=== PATIENT | male | born 1945 | race Caucasian/White ===

== ENCOUNTER 2018-12-18 14:00 | Outpatient (RCR) | payer MEDICARE, OTHER ==
--- NOTE | 2018-11-03 11:26 | Pulmonary Rehab Eval/Txmt Plan ---
Pulmonary Rehab Initial Eval Information Paper Evaluation Completed: Yes Date: Nov 03, 2018 Pulmonary Rehab Treatment Plan Treatment P Treatment Periord: Initial Diagnosis Diagnosis: J44.9 COPD Date: Nov 03, 2018 Barriers to Learning Barriers: None Assessment/Problems Exercise: Deconditioning, Decreased Exer Tolerance, No Regular Exercise, Sedentary Type: AEROBIC Frequency: 2 X WEEK Duration: 1 HR CLASS; EXERCISE PER PT'S TOLERANCE Initial MET Level: 2 Aerobic Exercise/Goals Freq: time per week minus CA: 2 MET Level=: 2 Type: Arm Ergometry, Bike, Scifi/Nustep, Treadmill CABRERA CONROY DO Nov 03, 2018 11:26
[2018-12-02 14:00] VITALS: BP 158/63
[2018-12-02 15:00] VITALS: BP 148/50
[2018-12-09 14:00] VITALS: BP 140/58
[2018-12-09 14:58] VITALS: BP 130/80
[2018-12-11 14:00] VITALS: BP 140/60
[2018-12-11 15:00] VITALS: BP 142/80
[2018-12-16 14:40] VITALS: BP 140/60
[2018-12-18 13:40] VITALS: BP 140/80
[~2018-12-18 14:00] MED LIST: ALBU2.5V4 INH; ALPR0.5T7 PO; AMLO5TAB4 PO; AVOD0.5CAP PO; AZIT250T12 PO; CITA20TA9 PO; CITA40TA19 PO; CLOP75TA69 PO; FINA5TAB6 PO; FLAX100031 PO; FLUT12AE4 IH; FLUT1AER INH; FLUT1DIS26 INH; GUAI600T43 PO; IPRA3AMP31 IH; LSNP10T PO; MONT10TA24 PO; PRD10T PO; PRED10TA22 PO; ROFL500T PO; ROSU5TAB PO; RT-ALBUINH IH; TELM40T PO; TELM40TA3 PO; TIOT18CA INH; TRIA80OI TOP; WARF-48 PO; WARF1TAB82 PO; WARF6TAB49 PO
[2018-12-18 14:57] VITALS: BP 178/60
[2018-12-23 13:52] VITALS: BP 150/60
[2018-12-23 14:55] VITALS: BP 140/80
[2018-12-25 14:10] VITALS: BP 140/50
[2018-12-25 15:00] VITALS: BP 122/64
[2018-12-30 14:00] VITALS: BP 180/40
[2018-12-30 16:00] VITALS: BP 140/80
[2019-01-01 14:00] VITALS: BP 190/60
[2019-01-01 15:00] VITALS: BP 140/70
[2019-01-06 14:00] VITALS: BP 230/50
[2019-01-06 15:00] VITALS: BP 138/40
[2019-01-08 13:50] VITALS: BP 160/76
[2019-01-08 14:40] VITALS: BP 121/60
[2019-01-13 13:40] VITALS: BP 163/60
[2019-01-13 14:04] VITALS: BP 150/50
[2019-01-15 13:58] VITALS: BP 122/81
[2019-01-15 15:00] VITALS: BP 150/60
[2019-01-20 14:00] VITALS: BP 160/50
[2019-01-20 14:35] VITALS: BP 130/50
[2019-01-27 14:00] VITALS: BP 130/60
[2019-01-27 15:00] VITALS: BP 140/68
[2019-01-29 14:00] VITALS: BP 140/60
[2019-02-03 14:00] VITALS: BP 160/60
[2019-02-03 14:45] VITALS: BP 115/40
== END 2019-02-01 | disposition home or self-care (01) ==
LOC: PULM 14:00
PROVIDERS: ATTEND Pediatrics
DX: J44.9 Chronic obstructive pulmonary disease, unspecified (principal)
CPT/HCPCS: 99211

== ENCOUNTER 2019-02-05 08:00 | Outpatient (RCR) | payer MEDICARE, OTHER ==
[2019-02-05 14:00] VITALS: BP 170/60
[2019-02-05 15:00] VITALS: BP 143/60
[2019-02-10 14:00] VITALS: BP 150/60
[2019-02-10 15:00] VITALS: BP 127/50
== END 2019-05-06 | disposition home or self-care (01) ==
LOC: PULM 08:00
PROVIDERS: ATTEND Pediatrics
DX: J44.9 Chronic obstructive pulmonary disease, unspecified (principal)

== ENCOUNTER → 2019-03-17 | Outpatient (CLI) | payer MEDICARE, OTHER ==
--- NOTE | 2019-03-17 16:32 | Diagnostic Imaging Report ---
PROCEDURE: US carotid duplex, bilateral. TECHNIQUE: Multiple real-time grayscale images were obtained over the carotid arteries in various projections, bilaterally. Additional spectral analysis and color Doppler duplex images were also obtained. INDICATION: Left carotid stenosis. FINDINGS: Moderate plaque is present bilaterally. No identifiable flow in the right internal carotid artery is noted. Velocities in the left internal carotid artery are mildly elevated distally at 152 cm/s. Common carotid artery velocities are unremarkable. Both vertebral arteries demonstrate antegrade flow. Parameters based on the consensus panel Lang-Scale and Doppler ultrasound criteria published August 2003, Radiology, Volume 229. DOPPLER (peak systolic velocity M/S Right Left CCA .58 .92 ICA Proximal 0 .98 ICA Mid 0 1.0 ICA Distal 0 1.52 RATIO 0 1.7 ECA 1.2 1.8 VERT .39 .40 IMPRESSION: 1. Findings consistent with right internal carotid artery occlusion. 2. Mild velocity elevation of left internal carotid artery distally consistent with approximately 60-79% diameter stenosis. No other significant abnormality is detected. Dictated by: Dictated on workstation # [id number]
== END ==
LOC: RAD 14:30
PROVIDERS: ATTEND Pediatrics
DX: I65.22 Occlusion and stenosis of left carotid artery (principal)
CPT/HCPCS: 93880

== ENCOUNTER → 2019-07-27 | Outpatient (CLI) | payer MEDICARE, OTHER ==
--- NOTE | 2019-07-27 15:00 | Diagnostic Imaging Report ---
PROCEDURE: US Venous Lower Ext Ciro. TECHNIQUE: Multiple real-time grayscale images were obtained over the lower extremities in various projections, bilaterally. Additional duplex Doppler and color Doppler images were also obtained. INDICATION: Leg pain and swelling. FINDINGS: There are no prior studies available for comparison. There is generally good blood flow and compressibility at all levels. There is no sign of deep venous thrombosis. During the course of the exam, however, an enlarged 3.8 x 3.2 x 1.9 cm lymph node was seen in the left inguinal region. This finding is of uncertain etiology. Clinical follow-up is recommended. IMPRESSION: 1. There is no evidence for deep venous thrombosis in either lower extremity. 2. There is an enlarged lymph node in the left inguinal region. Dictated by: Dictated on workstation # [id number]
== END ==
LOC: RAD 13:21
PROVIDERS: ATTEND Pediatrics
DX: M79.89 Other specified soft tissue disorders (principal); R59.0 Localized enlarged lymph nodes
CPT/HCPCS: 93970

== ENCOUNTER 2022-04-08 05:19 | Inpatient (IN) | payer MEDICARE, OTHER ==
[~2022-04-08] VITALS: Ht 185 cm; Wt 113.6 kg
[~2022-04-08 05:19] MED LIST changes: +MONT-40 PO; -MONT10TA24 PO; -TELM40TA3 PO; +TELM40TA6 PO; -WARF1TAB82 PO; +WRF1T PO
[2022-04-08] MEDS ORDERED: ONDANSETRON 4 MG/2 ML (SDV) Z0FRAN IVP ONE ×2 (05:30→06:15)
--- NOTE | 2022-04-08 05:31 | ED General ---
General Chief Complaint: Abdominal/GI Problems Stated Complaint: ABD PAIN Nursing Triage Note: patient states since midnight he has had abdominal pain with nausea/vomitting/diarrhea. patient states was on the toilet patient states he was leaning over trash can vomitting, states woke up on floor with head in shower. Source of Information: Patient Exam Limitations: No Limitations (RONI BATRES MD) History of Present Illness Date Seen by Provider: Apr 08, 2022 Time Seen by Provider: 05:24 Initial Comments This 76-year-old gentleman presents to the emergency room via EMS after having a syncopal episode at his home. He began experiencing nausea and vomiting around midnight as well as left lower quadrant pain. He was sitting on the stool when he had a syncopal episode and tipped over off of the stool without injury. His activated EMS. He was still on the floor by the stool when EMS arrived but was alert and conversational. He was not able to get up on his own. Patient denies nausea at this time but reports persistent left lower quadrant pain. He notes his urine has appeared concentrated recently but denies any other urinary problems. He denies diarrhea but states he has felt constipated recently. He has no history of abdominal surgeries per his report. He is on warfarin due to stroke and carotid stenosis. He has COPD and uses maintenance oxygen at 4 L/min. He was wearing his oxygen at the time of syncope. Patient reportedly is prone to syncope with prior episodes. He has had multiple prior admissions here for COPD and TIA. Dr. Priti Martínez is his primary care provider. (RONI BATRES MD) Allergies and Home Medications Allergies Coded Allergies: No Known Drug Allergies (Unverified , 02/06/16) Patient Home Medication List Home Medication List Reviewed: Yes (RONI BATRES MD) Alprazolam (Alprazolam) 0.5 Mg Tablet, 0.25-0.5 MG PO DAILY PRN for ANXIETY Prescribed by: MARYJO TINSLEY on 02/13/16 0945 Cephalexin (Cephalexin) 500 Mg Tablet, 500 MG PO BID Prescribed by: RAMY CALABRESE on 04/08/22 0717 Citalopram Hydrobromide (Citalopram HBr) 20 Mg Tablet, 20 MG PO HS, (Reported) Entered as Reported by: ELISABET VELAZQUEZ on 06/07/15 0959 Finasteride (Finasteride) 5 Mg Tablet, 5 MG PO HS, (Reported) Entered as Reported by: PAMELA VIRK on 06/03/152138 Fluticasone/Vilanterol (Breo Ellipta 100-25 Mcg INH) 1 Each Blst.w.dev, 1 PUFF INH HS, (Reported) Entered as Reported by: LUBA JOHNSON on 11/28/15 1014 Guaifenesin (Mucinex) 600 Mg Tab.er.12h, 600 MG PO DAILY PRN for CONGESTION, (Reported) Entered as Reported by: CARRIE SLADE on 02/06/16 1223 Hydrocodone/Acetaminophen (Hydrocodone-Acetamin 7.5-325) 7.5 Mg-325 Mg Tablet, 1-2 EACH PO Q6H PRN for pain Prescribed by: RAMY CALABRESE on 04/08/22 0718 Ipratropium/Albuterol Sulfate (Iprat-Albut 0.5-3(2.5) mg/3 ml) 3 Ml Ampul.neb, 3 ML IH Q6H PRN for SHORTNESS OF BREATH, (Reported) Entered as Reported by: LUBA JOHNSON on 11/28/15 1019 Montelukast Sodium (Montelukast Sodium) 10 Mg Tablet, 10 MG PO HS, (Reported) Entered as Reported by: CARRIE SLADE on 02/06/16 1223 Ondansetron (Ondansetron Odt) 4 Mg Tab.rapdis, 4-8 MG PO Q6H PRN for NAUSEA/VOMITING Prescribed by: RAMY CALABRESE on 04/08/22 0717 Prednisone (Prednisone) 10 Mg Tab, 10 MG PO DAILY Prescribed by: MARYJO TINSLEY on 02/13/16 0946 Roflumilast (Daliresp) 500 Mcg Tablet, 500 MCG PO DAILY Prescribed by: MARYJO TINSLEY on 02/13/16 0945 Rosuvastatin Calcium (Crestor) 5 Mg Tablet, 5 MG PO HS, (Reported) Entered as Reported by: PAMELA VIRK on 06/03/152138 Tamsulosin HCl (Flomax) 0.4 Mg Cap, 0.4 MG PO DAILY Prescribed by: RAMY CALABRESE on 04/08/22 0717 Telmisartan (Telmisartan) 40 Mg Tablet, 40 MG PO HS, (Reported) Entered as Reported by: LUBA JOHNSON on 11/28/15 1014 Warfarin Sodium (Warfarin Sodium) 5 Mg Tablet, 5 MG PO EVERY EVENING, (Reported) Entered as Reported by: LUBA JOHNSON on 11/28/15 1014 Review of Systems Review of Systems Constitutional: No fever; weakness EENTM: no symptoms reported Respiratory: no symptoms reported Cardiovascular: no symptoms reported Gastrointestinal: see HPI Genitourinary: see HPI Musculoskeletal: no symptoms reported Skin: no symptoms reported Psychiatric/Neurological: No Symptoms Reported Hematologic/Lymphatic: No Symptoms Reported Immunological/Allergic: no symptoms reported (RONI BATRES MD) Past Bdcelas-Rgdayb-Rqqviu Hx Patient Social History Tobacco Use?: No Tobacco type used: Cigarettes Smoking Status: Former Smoker Use of E-Cig and/or Vaping dev: No Substance use?: No Alcohol Use?: No (RONI BATRES MD) Past Medical History Surgeries: Yes Eye Surgery, Vascular Surgery (Right carotid endarterectomy) Respiratory: Yes Sleep Apnea, COPD (Uses maintenance oxygen at 4 L/min), Emphysema Currently Using CPAP: Yes Currently Using BIPAP: No Cardiac: Yes High Cholesterol, Hypertension, Peripheral Vascular, Syncope Neurological: No Stroke Reproductive Disorders: No Sexually Transmitted Disease: No HIV/AIDS: No Genitourinary: Yes Benign Prostatic Hyperpl Gastrointestinal: No Musculoskeletal: Yes Arthritis Endocrine: No HEENT: Yes Cataract Loss of Vision: Denies Hearing Impairment: Denies Psychosocial: Yes Anxiety Adverse Reaction/Blood Tranf: No (RONI BATRES MD) Family Medical History Reviewed Nursing Family Hx (RONI BATRES MD) FHx: hip fracture 19 MOTHER MS (multiple sclerosis) G8 BROTHER Paternal family history of congestive heart failure 19 FATHER No Pertinent Family Hx (RONI BATRES MD) Physical Exam Vital Signs Vital Signs - First Documented 04/08/22 04/08/22 05:23 05:31 Temp 36.5 Pulse 97 Resp 20 B/P (MAP) 197/90 (125) Pulse Ox 98 O2 Delivery Room Air O2 Flow Rate 2.00 (RAMY CALABRESE) Vital Signs Capillary Refill : Less Than 3 Seconds (RONI BATRES MD) Height, Weight, BMI Height: 6'1.00" Weight: 235lbs. 0.4oz. [id number]; 31.00 BMI Method:Stated General Appearance: No Apparent Distress, WD/WN HEENT: PERRL/EOMI, Normal ENT Inspection Neck: Normal Inspection Respiratory: Lungs Clear, Normal Breath Sounds, No Accessory Muscle Use Cardiovascular: Regular Rate, Rhythm, No Edema, No Murmur Gastrointestinal: Soft, Abnormal Bowel Sounds (No bowel sounds observed), Distended (Mildly), Tenderness (Mild in the far left lower quadrant) Extremity: Normal Inspection, No Pedal Edema Neurologic/Psychiatric: Alert, Oriented x3, No Motor/Sensory Deficits, Normal Mood/Affect, air quality engineer II-XII Norm as Tested, Other (Tremor) Skin: Normal Color, Warm/Dry (RONI BATRES MD) Focused Exam Lactate Level 04/08/22 07:35: Lactic Acid Level 2.22*H (RAMY CALABRESE) Lactic Acid Level Laboratory Tests Test 04/08/22 07:35 Lactic Acid Level 2.22 MMOL/L (0.50-2.00) *H (RAMY CALABRESE) Progress/Results/Core Measures Suspected Sepsis SIRS Temperature: Pulse: 97 Respiratory Rate: 20 Laboratory Tests 04/08/22 05:39: White Blood Count 18.7H Blood Pressure 197 /90 Mean: 125 Laboratory Tests 04/08/22 05:39: Creatinine 1.36H, INR Comment 1.7H, Platelet Count 250, Total Bilirubin 0.4 (RONI BATRES MD) Results/Orders Lab Results Laboratory Tests Test 04/08/22 05:39 04/08/22 05:40 04/08/22 07:35 Range/Units White Blood Count 18.7 H 4.3-11.0 10^3/uL Red Blood Count 3.97 L 4.30-5.52 10^6/uL Hemoglobin 12.6 L 13.3-17.7 g/dL Hematocrit 39 L 40-54 % Mean Corpuscular Volume 97 80-99 fL Mean Corpuscular Hemoglobin 32 25-34 pg Mean Corpuscular Hemoglobin Concent 33 32-36 g/dL Red Cell Distribution Width 13.6 10.0-14.5 % Platelet Count 250 130-400 10^3/uL Mean Platelet Volume 10.1 9.0-12.2 fL Immature Granulocyte % (Auto) 1 % Neutrophils (%) (Auto) 83 H 42-75 % Lymphocytes (%) (Auto) 8 L 12-44 % Monocytes (%) (Auto) 7 0-12 % Eosinophils (%) (Auto) 1 0-10 % Basophils (%) (Auto) 0 0-10 % Neutrophils # (Auto) 15.5 H 1.8-7.8 10^3/uL Lymphocytes # (Auto) 1.6 1.0-4.0 10^3/uL Monocytes # (Auto) 1.4 H 0.0-1.0 10^3/uL Eosinophils # (Auto) 0.1 0.0-0.3 10^3/uL Basophils # (Auto) 0.0 0.0-0.1 10^3/uL Immature Granulocyte # (Auto) 0.2 H 0.0-0.1 10^3/uL Neutrophils % (Manual) 78 % Lymphocytes % (Manual) 9 % Monocytes % (Manual) 9 % Eosinophils % (Manual) 3 % Band Neutrophils 1 % Blood Morphology Comment NORMAL Prothrombin Time 20.8 H 12.2-14.7 SEC INR Comment 1.7 H 0.8-1.4 Sodium Level 144 135-145 MMOL/L Potassium Level 4.6 3.6-5.0 MMOL/L Chloride Level 103 98-107 MMOL/L Carbon Dioxide Level 28 21-32 MMOL/L Anion Gap 13 5-14 MMOL/L Blood Urea Nitrogen 17 7-18 MG/DL Creatinine 1.36 H 0.60-1.30 MG/DL Estimat Glomerular Filtration Rate 55 BUN/Creatinine Ratio 13 Glucose Level 133 H 70-105 MG/DL Calcium Level 9.2 8.5-10.1 MG/DL Corrected Calcium 9.2 8.5-10.1 MG/DL Magnesium Level 1.8 1.6-2.4 MG/DL Total Bilirubin 0.4 0.1-1.0 MG/DL Aspartate Amino Transf (AST/SGOT) 20 5-34 U/L Alanine Aminotransferase (ALT/SGPT) 12 0-55 U/L Alkaline Phosphatase 34 L 40-136 U/L C-Reactive Protein High Sensitivity 2.27 H 0.00-0.50 MG/DL Total Protein 7.3 6.4-8.2 GM/DL Albumin 4.0 3.2-4.5 GM/DL Lipase 30 8-78 U/L Urine Color YELLOW Urine Clarity CLEAR Urine pH 5.5 5-9 Urine Specific [place] >=1.030 1.016-1.022 Urine Protein 1+ H NEGATIVE Urine Glucose (UA) NEGATIVE NEGATIVE Urine Ketones NEGATIVE NEGATIVE Urine Nitrite NEGATIVE NEGATIVE Urine Bilirubin NEGATIVE NEGATIVE Urine Urobilinogen 0.2 < = 1.0 MG/DL Urine Leukocyte Esterase NEGATIVE NEGATIVE Urine RBC (Auto) 3+ H NEGATIVE Urine RBC 50-100 H /HPF Urine WBC NONE /HPF Urine Crystals NONE /LPF Urine Bacteria MODERATE H /HPF Urine Casts NONE /LPF Urine Mucus NEGATIVE /LPF Urine Yeast FEW H /HPF Urine Culture Indicated YES Lactic Acid Level 2.22 *H 0.50-2.00 MMOL/L (RAMY CALABRESE) My Orders Orders - RAMY CALABRESE Pantoprazole Injection (Protonix Injecti (04/08/22 06:15) Ondansetron Injection (Zofran Injectio (04/08/22 06:15) Ct Abd/Pelvis Wo(Kidney Stone) (04/08/22 06:08) Ed Iv/Invasive Line Start (04/08/22 06:08) Lactated Ringers (Lr 1000 Ml Iv Solution (04/08/22 06:15) Fentanyl Inj (Sublimaze Injection) (04/08/22 06:15) Promethazine Injection (Phenergan Injec (04/08/22 07:15) Fentanyl Inj (Sublimaze Injection) (04/08/22 07:15) Ceftriaxone 1 Gm Pre-Mix (Rocephin 1 Gm (04/08/22 07:15) Hydrocodone/Apap 5/325 Tablet (Lortab 5 (04/08/22 07:45) Blood Culture (04/08/22 07:34) Partial Thromboplastin Time (04/08/22 07:34) Chest 1 View, Ap/Pa Only (04/08/22 07:34) Ed Iv/Invasive Line Start (04/08/22 07:34) Ed Iv/Invasive Line Start (04/08/22 07:34) Vital Signs Adult Sepsis Patie Q15M (04/08/22 07:34) Remove Rings In Anticipation O (04/08/22 07:34) Lactic Acid Analyzer (04/08/22 07:34) Ns Iv 1000 Ml (Sodium Chloride 0.9%) (04/08/22 07:45) (RAMY CALABRESE) Medications Given in ED Current Medications Medications Dose Ordered Sig/Dary Route Start Time Stop Time Status Last Admin Dose Admin Ceftriaxone Sodium/Dextrose 50 ml @ 100 mls/hr ONCE ONCE IV 04/08/22 07:15 04/08/22 07:44 DC 04/08/22 07:43 100 MLS/HR Fentanyl Citrate 50 mcg ONCE ONCE IVP 04/08/22 06:15 04/08/22 06:16 DC 04/08/22 06:17 50 MCG Lactated Ringer's 1,000 ml @ 0 mls/hr Q0M ONCE IV 04/08/22 06:15 04/08/22 06:16 DC 04/08/22 06:17 0 MLS/HR Ondansetron HCl 4 mg ONCE ONCE IVP 04/08/22 05:30 04/08/22 05:31 DC 04/08/22 05:43 4 MG Ondansetron HCl 4 mg ONCE ONCE IVP 04/08/22 06:15 04/08/22 06:16 DC 04/08/22 06:12 4 MG Pantoprazole 40 mg ONCE ONCE IV 04/08/22 06:15 04/08/22 06:16 DC 04/08/22 06:12 40 MG Promethazine HCl 12.5 mg ONCE ONCE IVP 04/08/22 07:15 04/08/22 07:16 DC 04/08/22 07:41 12.5 MG (RAMY CALABRESE) Vital Signs/I&O 04/08/22 04/08/22 05:23 05:31 Temp 36.5 Pulse 97 Resp 20 B/P (MAP) 197/90 (125) Pulse Ox 98 97 O2 Delivery Room Air Nasal Cannula O2 Flow Rate 2.00 (RAMY CALABRESE) Vital Signs/I&O Capillary Refill : Less Than 3 Seconds (RONI BATRES MD) Blood Pressure Mean: 125 Progress Note : Time: 05:37 Progress Note Patient was seen and examined upon arrival. History received from patient and EMS. Zofran is being administered for prevention of further nausea and vomiting. Further work-up is pending lab results. (RONI BATRES MD) Progress Note #1: Time: 07:11 Progress Note Assumed care of the patient at shift change. He has a left ureteral stone. He does have significant relief of pain with fentanyl but would like little more and is still having some nausea so we will try 12 and half milligrams of Phenergan and another 50 mcg of fentanyl. Gram Rocephin. Encouraged him to follow-up outpatient with his primary care provider to work-up his left thigh mass seen on CT. Progress Note #2: Time: 07:30 Progress Note When the patient returned from CAT scan he had a low blood pressure in the 80s so we reposition the cuff and got a similar blood pressure put it on the other arm and got a similar blood pressure. His IV had infiltrated so he put a compressive bandage over the site and will restart an IV and let him get his fluids. We will put him in some modified Trendelenburg's position. Current blood pressure 95/60. We will obtain blood cultures and lactate. Discussed his spine mass as well as a short stay in the hospital and the patient is okay with this plan. 2 large-bore IVs, and discontinue the fentanyl second dose and ordered Polo instead. Unclear how much the fentanyl contributed to the patien t's drop in blood pressure. (RAMY CALABRESE) ECG Initial ECG Impression Date: Apr 08, 2022 Initial ECG Impression Time: 05:37 Initial ECG Rate: 93 Initial ECG Rhythm: Normal Sinus Comment Sinus rhythm with no ST elevation or depression. No abnormal intervals or axis deviation. (RONI ABTRES MD) Diagnostic Imaging Diagonstic Imaging: CT Plain Films/CT/US/NM/MRI: abdomen, pelvis Comments 2 to 3 mm stone in the mid ureter left side. NAME: LUIS EDUARDO RODRÍGUEZ MED REC#: [id number] PT STATUS: REG ER : 1945 PHYSICIAN: RAMY CALABRESE MD ADMIT DATE: 04/08/22/ER Draft Date of Exam:04/08/22 CT ABD/PELVIS WO(KIDNEY STONE) PROCEDURE: CT abdomen and pelvis without contrast. TECHNIQUE: Multiple contiguous axial images were obtained through the abdomen and pelvis without the use of intravenous contrast. Auto Exposure Controls were utilized during the CT exam to meet ALARA standards for radiation dose reduction. DATE: April 08, 2022. COMPARISON: None. INDICATION: 76-year-old male, abdominal pain. Nausea, vomiting, diarrhea. FINDINGS: There are limitations for evaluation of the abdominal organs, neoplastic processes, abscess, and limited evaluation of the vasculature relating to the lack of intravenous contrast. There are mild predominantly linear opacities in the lung bases most consistent with mild scarring and/or atelectasis. The heart is not enlarged. There is no pericardial effusion. The liver is unremarkable in size and contour. The gallbladder is unremarkable. There is no intrahepatic or extrahepatic bile duct dilation. The main pancreatic duct is not grossly dilated. Limited noncontrast assessment of the pancreatic parenchyma is unremarkable. The spleen is normal in size. The adrenal glands are unremarkable. There is an exophytic left renal lesion on axial image 78 which measures 2.5 cm in size. Internal attenuation is measured at 10 Hounsfield units. This is compatible with a benign cyst. There is left perinephric stranding. There is a nonobstructing 1 to 2 mm left renal stone on axial image 75. There is very mild left hydronephrosis. There is a 2 mm stone in the left distal ureter on axial image 146. There is stranding along the course of the left ureter. There is no right hydronephrosis. There is no identified right ureteral stone. Urinary bladder is underdistended and not well-evaluated. There is diverticulosis without evidence of acute diverticulitis. The intestinal tract is not distended. The appendix is well-seen on axial image 135 and adjacent sequential images. There is no evidence of acute appendicitis. There is a small umbilical hernia with a segment of small bowel partially extending through the hernia defect without associated obstruction or other complication. There is no free intraperitoneal air. There is no drainable fluid collection. There is no free fluid in the abdomen or pelvis. There are atherosclerotic calcifications. There is no identified abnormally enlarged lymph node in the abdomen or pelvis meeting CT size criteria for adenopathy. There is a soft tissue attenuation mass in the left medial thigh compartment with partial areas of internal calcification which measures 2.7 x 2.4 cm in size on axial image 186. There is no identified acute bony abnormality. IMPRESSION: CT ABDOMEN AND PELVIS. 1. 2 mm stone in the left distal ureter with very mild left hydronephrosis. 2. Additional punctate 1 to 2 mm nonobstructing left renal stone. 3. Exophytic benign left renal cyst. 4. Indeterminate soft tissue mass with small foci of calcification in the left medial thigh compartment which measures 2.7 x 2.4 cm in size. Both benign and malignant processes are in the differential diagnosis. Recommend a dedicated MRI left hip without and with intravenous contrast with targeted field of view of imaging specifically at the location of the mass for further evaluation. Comparison with earlier prior imaging, if available, is recommended to assess for possible stability. Dictated on workstation # [id number] Dict: 04/08/22 0643 Trans: 04/08/22 0709 [facility] [id number] Interpreted by: DAVID CARMONA MD Electronically signed by: Reviewed: Reviewed by Me Diagonstic Imaging: Xray Plain Films/CT/US/NM/MRI: chest Comments [facility] [place] NAME: LUIS EDUARDO RODRÍGUEZ [facility] REC#: [id number] PT STATUS: REG ER : 1945 PHYSICIAN: RAMY CALABRESE MD ADMIT DATE: 04/08/22/ER Draft Date of Exam:04/08/22 CHEST 1 VIEW, AP/PA ONLY INDICATION: Sepsis, urinary tract infection. TECHNIQUE: Single view chest 7:50 AM. CORRELATION STUDY: 02/08/2016 FINDINGS: Heart size and mediastinum have become enlarged and more prominent from prior. Mediastinal fullness most pronounced in the right suprahilar region. Pulmonary vasculature overall within normal limits. There is linear parenchymal densities emanating from the right hilum into the right upper lung field. No lobar consolidating infiltrate. Lung urrutia are otherwise hyperlucent and hyperinflated. IMPRESSION: 1. No acute consolidating infiltrate suggests pneumonia. 2. There has been change and development of cardiac enlargement as well as some prominence and fullness of right suprahilar region with suggestion of scarlike formation of the right perihilar region. This finding is nonspecific. Given interval change, follow-up imaging evaluation recommended. Additionally, correlation 2 View Chest and/or CT imaging is recommended. Dictated on workstation # [id number] Dict: 04/08/22 0753 Trans: 04/08/22 0757 [id number] Interpreted by: DEVIN MARCELINO DO Electronically signed by: Reviewed: Reviewed by Me (RAMY CALABRESE) Departure Communication (Admissions) Time/Spoke to Admitting Phy: 07:36 Discussed the case with Dr. Ordaz and she agrees with antibiotic selection observation in the ICU, 2 L of fluid and she would reassess in the afternoon. (RAMY CALABRESE) Impression Primary Impression: Ureteral calculus, left Additional Impressions: Mass of left thigh Syncope Qualified Codes: R55 - Syncope and collapse Sepsis Qualified Codes: A41.9 - Sepsis, unspecified organism; R65.20 - Severe sepsis without septic shock; N17.9 - Acute kidney failure, unspecified UTI (urinary tract infection) Qualified Codes: N30.01 - Acute cystitis with hematuria Disposition: HOME, SELF-CARE Condition: Stable Admissions Decision to Admit Reason: Admit from ER (General) Decision to Admit/Date: Apr 08, 2022 Time/Decision to Admit Time: 07:30 (RAMY CALABRESE) Departure-Patient Inst. Referrals: PRITI MARTÍNEZ MD (PCP/Family) Primary Care Physician SHAZIA TAYLOR MD Patient Instructions: Kidney Stones (DC), How to Strain Your Urine Add. Discharge Instructions: Drink lots of fluids. Strain your urine to see if you can catch the stones so you will know when it passes. Typically symptoms resolve 1 to 2 days after the stone passes. Tylenol 1000 mg every 8 hours as needed for pain. Hydrocodone 1 to 2 tablets every 6 hours as needed for pain control. Ondansetron 1 to 2 tablets every 6 hours as needed for nausea and/or vomiting. Keflex 1 capsule twice a day for the next week for infection. Flomax daily until the stone passes. Follow-up with Dr. Taylor, urology for help managing symptoms. All discharge instructions reviewed with patient and/or family. Voiced understanding. Scripts Ondansetron (Ondansetron Odt) 4 Mg Tab.rapdis 4-8 MG PO Q6H PRN for NAUSEA/VOMITING, #15 TAB 0 Refills Prov: RAMY CALABRESE 04/08/22 Cephalexin (Cephalexin) 500 Mg Tablet 500 MG PO BID for 7 Days, #14 TAB 0 Refills Prov: RAMY CALABRESE 04/08/22 Hydrocodone/Acetaminophen (Hydrocodone-Acetamin 7.5-325) 7.5 Mg-325 Mg Tablet 1-2 EACH PO Q6H PRN for pain, #20 TAB 0 Refills Prov: RAMY CALABRESE 04/08/22 Tamsulosin HCl (Flomax) 0.4 Mg Cap 0.4 MG PO DAILY for 7 Days, #7 CAP 0 Refills Prov: RAMY CALABRESE 04/08/22 Copy Copies To 1: PRITI MARTÍNEZ MD, JOSHUA T MD Apr 08, 2022 05:31 RAMY CALABRESE Apr 08, 2022 06:39
[2022-04-08 05:47] LABS: BASOPHILS % (AUTO) 0 % (0-10); EOSINOPHILS # (AUTO) 0.1 10^3/uL (0.0-0.3); EOSINOPHILS % (AUTO) 1 % (0-10); HEMATOCRIT 39 % (40-54); HEMOGLOBIN 12.6 g/dL (13.3-17.7); LYMPHOCYTES # (AUTO) 1.6 10^3/uL (1.0-4.0); LYMPHOCYTES % (AUTO) 8 % (12-44); MEAN CORPUSCULAR HEMOGLOBIN 32 pg (25-34); MEAN CORPUSCULAR HGB CONC 33 g/dL (32-36); MEAN CORPUSCULAR VOLUME 97 fL (80-99); MEAN PLATELET VOLUME 10.1 fL (9.0-12.2); MONOCYTES # (AUTO) 1.4 10^3/uL (0.0-1.0); MONOCYTES % (AUTO) 7 % (0-12); NEUTROPHILS # (AUTO) 15.5 10^3/uL (1.8-7.8); NEUTROPHILS % (AUTO) 83 % (42-75); PLATELET COUNT 250 10^3/uL (130-400); WHITE BLOOD COUNT 18.7 10^3/uL (4.3-11.0)
[2022-04-08 05:55] LABS: BILIRUBIN,URINE NEGATIVE (NEGATIVE); CLARITY,URINE CLEAR; COLOR,URINE YELLOW; GLUCOSE, URINE (UA) NEGATIVE (NEGATIVE); KETONES,URINE NEGATIVE (NEGATIVE); LEUKOCYTE ESTERASE ,URINE NEGATIVE (NEGATIVE); NITRITE,URINE NEGATIVE (NEGATIVE); PH,URINE 5.5 (5-9); PROTEIN,URINE 1+ (NEGATIVE)
[2022-04-08 05:58] LABS: POTASSIUM 4.6 MMOL/L (3.6-5.0)
[2022-04-08 05:59] LABS: CALCIUM 9.2 MG/DL (8.5-10.1)
[2022-04-08 06:01] LABS: TOTAL PROTEIN 7.3 GM/DL (6.4-8.2)
[2022-04-08 06:02] LABS: BILIRUBIN,TOTAL 0.4 MG/DL (0.1-1.0)
[2022-04-08 06:04] LABS: CREATININE SERUM 1.36 MG/DL (0.60-1.30)
[2022-04-08 06:06] LABS: BACTERIA,URINE MODERATE /HPF; RBC,URINE 50-100 /HPF
[2022-04-08 06:07] LABS: YEAST,URINE FEW /HPF
[2022-04-08 06:07] LABS: INR 1.7 (0.8-1.4); MAGNESIUM 1.8 MG/DL (1.6-2.4); PROTHROMBIN TIME PATIENT 20.8 SEC (12.2-14.7)
[2022-04-08] MEDS ORDERED: LACTATED RINGERS 1,000 ML IV ONE (06:15)
[2022-04-08] MEDS ORDERED: fentaNYL INJ 100 MCG/2 ML AMP IVP ONE ×2 (06:15→07:15)
[2022-04-08] MEDS ORDERED: PANTOPRAZOLE 40 MG (PROTONIX) VIAL IV ONE (06:15)
[2022-04-08 06:19] LABS: BAND NEUTROPHILS 1 %; EOSINOPHILS % (MANUAL) 3 %; LYMPHOCYTES % (MANUAL) 9 %; MONOCYTES % (MANUAL) 9 %; NEUTROPHILS % (MANUAL) 78 %; RBC MORPH NORMAL
--- NOTE | 2022-04-08 07:10 | Diagnostic Imaging Report ---
PROCEDURE: CT abdomen and pelvis without contrast. TECHNIQUE: Multiple contiguous axial images were obtained through the abdomen and pelvis without the use of intravenous contrast. Auto Exposure Controls were utilized during the CT exam to meet ALARA standards for radiation dose reduction. DATE: April 08, 2022. COMPARISON: None. INDICATION: 76-year-old male, abdominal pain. Nausea, vomiting, diarrhea. FINDINGS: There are limitations for evaluation of the abdominal organs, neoplastic processes, abscess, and limited evaluation of the vasculature relating to the lack of intravenous contrast. There are mild predominantly linear opacities in the lung bases most consistent with mild scarring and/or atelectasis. The heart is not enlarged. There is no pericardial effusion. The liver is unremarkable in size and contour. The gallbladder is unremarkable. There is no intrahepatic or extrahepatic bile duct dilation. The main pancreatic duct is not grossly dilated. Limited noncontrast assessment of the pancreatic parenchyma is unremarkable. The spleen is normal in size. The adrenal glands are unremarkable. There is an exophytic left renal lesion on axial image 78 which measures 2.5 cm in size. Internal attenuation is measured at 10 Hounsfield units. This is compatible with a benign cyst. There is left perinephric stranding. There is a nonobstructing 1 to 2 mm left renal stone on axial image 75. There is very mild left hydronephrosis. There is a 2 mm stone in the left distal ureter on axial image 146. There is stranding along the course of the left ureter. There is no right hydronephrosis. There is no identified right ureteral stone. Urinary bladder is underdistended and not well-evaluated. There is diverticulosis without evidence of acute diverticulitis. The intestinal tract is not distended. The appendix is well-seen on axial image 135 and adjacent sequential images. There is no evidence of acute appendicitis. There is a small umbilical hernia with a segment of small bowel partially extending through the hernia defect without associated obstruction or other complication. There is no free intraperitoneal air. There is no drainable fluid collection. There is no free fluid in the abdomen or pelvis. There are atherosclerotic calcifications. There is no identified abnormally enlarged lymph node in the abdomen or pelvis meeting CT size criteria for adenopathy. There is a soft tissue attenuation mass in the left medial thigh compartment with partial areas of internal calcification which measures 2.7 x 2.4 cm in size on axial image 186. There is no identified acute bony abnormality. IMPRESSION: CT ABDOMEN AND PELVIS. 1. 2 mm stone in the left distal ureter with very mild left hydronephrosis. 2. Additional punctate 1 to 2 mm nonobstructing left renal stone. 3. Exophytic benign left renal cyst. 4. Indeterminate soft tissue mass with small foci of calcification in the left medial thigh compartment which measures 2.7 x 2.4 cm in size. Both benign and malignant processes are in the differential diagnosis. Recommend a dedicated MRI left hip without and with intravenous contrast with targeted field of view of imaging specifically at the location of the mass for further evaluation. Comparison with earlier prior imaging, if available, is recommended to assess for possible stability. Dictated by: Dictated on workstation # [id number]
[2022-04-08] MEDS ORDERED: cefTRIAXone 1 GM PRE-MIX 50 ML IV ONE (07:15)
[2022-04-08] MEDS ORDERED: PROMETHAZINE INJ 25 MG/ML (PHENERGAN) AMP IVP ONE ×2 (07:15→08:30)
[2022-04-08] MEDS ORDERED: CEPH500T PO (07:17)
[2022-04-08] MEDS ORDERED: TMSL.4C PO (07:17)
[2022-04-08] MEDS ORDERED: ONDA4TAB11 PO (07:17)
[2022-04-08] MEDS ORDERED: HYDR-3817 PO (07:17)
[2022-04-08] MEDS ORDERED: HYDROcodone/APAP 5 MG/325 MG (LORTAB) TAB PO ONE (07:45)
[2022-04-08] MEDS ORDERED: NS IV 1000 ML 1,000 ML IV SCH (07:45)
--- NOTE | 2022-04-08 07:58 | Diagnostic Imaging Report ---
INDICATION: Sepsis, urinary tract infection. TECHNIQUE: Single view chest 7:50 AM. CORRELATION STUDY: 02/08/2016 FINDINGS: Heart size and mediastinum have become enlarged and more prominent from prior. Mediastinal fullness most pronounced in the right suprahilar region. Pulmonary vasculature overall within normal limits. There is linear parenchymal densities emanating from the right hilum into the right upper lung field. No lobar consolidating infiltrate. Lung urrutia are otherwise hyperlucent and hyperinflated. IMPRESSION: 1. No acute consolidating infiltrate suggests pneumonia. 2. There has been change and development of cardiac enlargement as well as some prominence and fullness of right suprahilar region with suggestion of scarlike formation of the right perihilar region. This finding is nonspecific. Given interval change, follow-up imaging evaluation recommended. Additionally, correlation 2 View Chest and/or CT imaging is recommended. Dictated by: Dictated on workstation # [id number]
--- NOTE | 2022-04-08 08:41 | Tele-ICU Progress Note ---
Subjective Date Seen by a Provider: Apr 08, 2022 Time Seen by a Provider: 08:11 Subjective/Events-last exam This virtual visit was conducted using real time audio/video. Thank you for asking us to see this patient for respiratory insufficiency due to AECOPD. Adm w renal stone, UTI, sepsis Recent events: PMH: COPD/home O2 4 LPM, CVA on coum., HL SH: smoking history: former FH: Non-contributory ROS:as in HPI PE: Mild distress, obese. VSS. O2 sat 92% on 6 LPM NC. HEENT: No obvious masses, adenopathy or JVD. Chest: clear to auscultation. Diminished. CV: RRR S1 S2 No murmur or added sounds. Abd: Non-tender. Bowel sounds Y. : Unremarkable. Tian N. 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 No obvious focal findings. Extremities: No edema. Capillary refill < 3 seconds. Skin: unremarkable. Results: Elevated WCC 18.7, BG 133, Creat 1.36. Decreased Hb 12.6. CXR: Hyperinflated, clear urrutia. Available chart/ vitals / labs / images reviewed. Video assessment done using teleICU camera, rest of exam as per RN. A/P: Respiratory insufficiency: Continue present management with O2. Will add duonebs. May need Medrol. Monitor for increasing oxygenation needs and/or need for intubation. Critical Care: critically ill patient. Cont.IVF, abx, PPI, Fent. Discussed with REAL Tee. Asked RN to reach out to eICU if any questions or concerns later. Time spent with patient/coordination of care with other health professionals (mins): 19 Sepsis Event Evaluation Height, Weight, BMI Height: 6'1.00" Weight: 235lbs. 0.4oz. 85.670856uo; 31.00 BMI Method:Stated Focused Exam Lactate Level 04/08/22 07:35: Lactic Acid Level 2.22*H Lactic Acid Level Laboratory Tests Test 04/08/22 07:35 Lactic Acid Level 2.22 MMOL/L (0.50-2.00) *H Exam Exam Patient acknowledged, consented, and participated in this virtual visit which was conducted using real time audio/video Vital Signs Date Time Temp Pulse Resp B/P (MAP) Pulse Ox O2 Delivery O2 Flow Rate FiO2 04/08/22 08:18 88 22 196/85 96 OxyMask 6.00 04/08/22 05:31 97 Nasal Cannula 2.00 04/08/22 05:23 36.5 97 20 197/90 (125) 98 Room Air Height & Weight Height: 6'1.00" Weight: 235lbs. 0.4oz. 85.140710nj; 31.00 BMI Method:Stated General Appearance: No Apparent Distress, WD/WN HEENT: PERRL/EOMI, Normal ENT Inspection Neck: Normal Inspection Respiratory: Lungs Clear, Normal Breath Sounds, No Accessory Muscle Use Cardiovascular: Regular Rate, Rhythm, No Edema, No Murmur Capillary Refill: Less Than 3 Seconds Extremity: Normal Inspection, No Pedal Edema Neurologic/Psychiatric: Alert, Oriented x3, No Motor/Sensory Deficits, Normal Mood/Affect, improvement intern II-XII Norm as Tested, Other (Tremor) Skin: Normal Color, Warm/Dry Results Lab Laboratory Tests 04/08/22 05:39 Assessment/Plan Assessment/Plan See free text Critical Care: Critically Ill Patient JOANNE ZELAYA MD Apr 08, 2022 08:41
[2022-04-08] MEDS ORDERED: cefTRIAXone 1 GM IV (PRE-MIX) 50 ML IV SCH (09:06)
[2022-04-08 09:15] VITALS: BP 208/92
[2022-04-08] MEDS ORDERED: LACTATED RINGERS 1,000 ML IV SCH ×2 (09:15→12:00)
[2022-04-08] MEDS ORDERED: HYDROcodone/APAP 7.5 MG/325 MG (LORTAB, LORCET PLUS) TABLET PO PRN (09:15)
[2022-04-08] MEDS ORDERED: PROMETHAZINE INJ 25 MG/ML (PHENERGAN) AMP IV PRN (09:15)
[2022-04-08] MEDS ORDERED: methylPREDNISolone 125 MG (Solu-MEDROL) VIAL IVP ONE ×2 (09:15→20:15)
[2022-04-08] MEDS ORDERED: LORazepam INJ 2 MG/ML (ATIVAN) VIAL ONE (09:28)
[2022-04-08] MEDS: LORazepam INJ 2 MG/ML (ATIVAN) VIAL IVP PRN (09:29)
[2022-04-08] MEDS: RT-ALBUTEROL/IPRATROPIUM 3 ML (DUONEB) VIAL INH SCH ×4 (09:40→21:44)
[2022-04-08] MEDS: ONDANSETRON 4 MG/2 ML (SDV) Z0FRAN IV PRN (09:56)
--- NOTE | 2022-04-08 09:56 | History & Physical-Hospitalist ---
History of Present Illness HPI/Chief Complaint Patient 76-year-old male with past medical history of COPD with baseline 4 L/min oxygen requirement, CVA, hyperlipidemia who presented to the emergency department due to abdominal pain. He had imaging that revealed multiple kidney stones and they were prepping for discharge as his pain was controlled but he became hypotensive. In review of labs he was found to have a leukocytosis of 18,000 and decision was made to admit for further management. I was called to bedside shortly after arrival to the ICU due to decline in respiratory status. He is unable to provide me much history and is pulling at his BiPAP. His states that he has known COPD and wears 4 L of oxygen per minute. She states he would be agreeable with intubation if needed. He is unable to provide me any history due to his clinical condition. Source: patient Date Seen 04/08/22 Time Seen by a Provider: 09:55 Attending Physician Priti Martínez MD PCP Admitting Physician: Tanya Ordaz MD Attending Physician: Tanya Ordaz MD Referring Physician Date of Admission Apr 08, 2022 at 07:40 Home Medications & Allergies Home Medications Reviewed patient Home Medication Reconciliation performed by pharmacy medication reconciliations extractions technician and/or nursing. Patients Allergies have been reviewed. Allergies Allergies Coded Allergies No Known Drug Allergies (Unverified02/06/16) Past Bsuopjj-Vziqjk-Aeydch Hx Patient Social History Marrital Status: Tobacco Use?: No Tobacco type used: Cigarettes Smoking Status: Former Smoker Use of E-Cig and/or Vaping dev: No Substance use?: No Alcohol Use?: No Pt feels they are or have been: No Immunizations Up To Date Date of Influenza Vaccine: Jul 28, 2015 First/Initial COVID19 Vaccinat: yes Second COVID19 Vaccination Lenny: yes Date of Pneumonia Vaccine: Jul 28, 2014 Current Status Advance Directives: No Primary Language: Citizen Of [place] Preferred Spoken Language: Citizen Of [place] Past Medical History Surgeries: Eye Surgery, Vascular Surgery (Right carotid endarterectomy) Sleep Apnea, COPD (Uses maintenance oxygen at 4 L/min), Emphysema Currently Using CPAP: Yes Currently Using BIPAP: No High Cholesterol, Hypertension, Peripheral Vascular, Syncope Stroke Sexually Transmitted Disease: No HIV/AIDS: No Benign Prostatic Hyperpl Arthritis Cataract Loss of Vision: Denies Hearing Impairment: Denies Anxiety Adverse Reaction/Blood Tranf: No PMHx: HTN HLD ASOD COPD BPH PSurgHx: Carotid endarterectomy Knee surgery Family Medical History Reviewed Nursing Family Hx FHx: hip fracture 19 MOTHER MS (multiple sclerosis) G8 BROTHER Paternal family history of congestive heart failure 19 FATHER No Pertinent Family Hx Review of Systems ROS-Unable to Obtain: deteriotating clinical condition, unable to provide ROS Constitutional: see HPI Physical Exam Physical Exam Vital Signs Vital Signs - First Documented 04/08/22 04/08/22 05:23 05:31 Temp 36.5 Pulse 97 Resp 20 B/P (MAP) 197/90 (125) Pulse Ox 98 O2 Delivery Room Air O2 Flow Rate 2.00 Capillary Refill : Less Than 3 Seconds Height, Weight, BMI Height: 6'1.00" Weight: 235lbs. 0.4oz. 85.644598xc; 31.00 BMI Method:Stated General Appearance: Chronically ill, Moderate Distress, Obese HEENT: PERRL/EOMI; No Scleral Icterus (L), No Scleral Icterus (R); Other (ecam obscured by BiPAP mask) Neck: Normal Inspection, Supple; No JVD Respiratory: Accessory Muscle Use, Decreased Breath Sounds, Wheezing (scant as barely moving much air) Cardiovascular: Regular Rate, Rhythm, No JVD, No Murmur, Normal Peripheral Pulses Gastrointestinal: Normal Bowel Sounds, Non Tender, Soft Extremity: Normal Capillary Refill, No Calf Tenderness, No Pedal Edema Neurologic/Psychiatric: Alert, Other (able to nod to a couple of questions, seems appropriate but unable to assess orientation) Skin: Normal Color, Warm/Dry Results Results/Procedures Labs Laboratory Tests 04/08/22 05:39 Patient resulted labs reviewed. Imaging: Reviewed Imaging Report [facility] [place] [place] NAME: LUIS EDUARDO RODRÍGUEZ [facility] REC#: [id number] PT STATUS: ADM Alfredito : 1945 PHYSICIAN: RAMY CALABRESE MD ADMIT DATE: 04/08/22/ICU Signed Date of Exam:04/08/22 CT ABD/PELVIS WO(KIDNEY STONE) PROCEDURE: CT abdomen and pelvis without contrast. TECHNIQUE: Multiple contiguous axial images were obtained through the abdomen and pelvis without the use of intravenous contrast. Auto Exposure Controls were utilized during the CT exam to meet ALARA standards for radiation dose reduction. DATE: April 08, 2022. COMPARISON: None. INDICATION: 76-year-old male, abdominal pain. Nausea, vomiting, diarrhea. FINDINGS: There are limitations for evaluation of the abdominal organs, neoplastic processes, abscess, and limited evaluation of the vasculature relating to the lack of intravenous contrast. There are mild predominantly linear opacities in the lung bases most consistent with mild scarring and/or atelectasis. The heart is not enlarged. There is no pericardial effusion. The liver is unremarkable in size and contour. The gallbladder is unremarkable. There is no intrahepatic or extrahepatic bile duct dilation. The main pancreatic duct is not grossly dilated. Limited noncontrast assessment of the pancreatic parenchyma is unremarkable. The spleen is normal in size. The adrenal glands are unremarkable. There is an exophytic left renal lesion on axial image 78 which measures 2.5 cm in size. Internal attenuation is measured at 10 Hounsfield units. This is compatible with a benign cyst. There is left perinephric stranding. There is a nonobstructing 1 to 2 mm left renal stone on axial image 75. There is very mild left hydronephrosis. There is a 2 mm stone in the left distal ureter on axial image 146. There is stranding along the course of the left ureter. There is no right hydronephrosis. There is no identified right ureteral stone. Urinary bladder is underdistended and not well-evaluated. There is diverticulosis without evidence of acute diverticulitis. The intestinal tract is not distended. The appendix is well-seen on axial image 135 and adjacent sequential images. There is no evidence of acute appendicitis. There is a small umbilical hernia with a segment of small bowel partially extending through the hernia defect without associated obstruction or other complication. There is no free intraperitoneal air. There is no drainable fluid collection. There is no free fluid in the abdomen or pelvis. There are atherosclerotic calcifications. There is no identified abnormally enlarged lymph node in the abdomen or pelvis meeting CT size criteria for adenopathy. There is a soft tissue attenuation mass in the left medial thigh compartment with partial areas of internal calcification which measures 2.7 x 2.4 cm in size on axial image 186. There is no identified acute bony abnormality. IMPRESSION: CT ABDOMEN AND PELVIS. 1. 2 mm stone in the left distal ureter with very mild left hydronephrosis. 2. Additional punctate 1 to 2 mm nonobstructing left renal stone. 3. Exophytic benign left renal cyst. 4. Indeterminate soft tissue mass with small foci of calcification in the left medial thigh compartment which measures 2.7 x 2.4 cm in size. Both benign and malignant processes are in the differential diagnosis. Recommend a dedicated MRI left hip without and with intravenous contrast with targeted field of view of imaging specifically at the location of the mass for further evaluation. Comparison with earlier prior imaging, if available, is recommended to assess for possible stability. Dictated by: Dictated on workstation # [id number] Dict: 04/08/22 0643 Trans: 04/08/22819 [facility] [id number] Interpreted by: DAVID CARMONA MD Electronically signed by: DAVID CARMONA MD 04/08/22819 [facility], [place] NAME: LUIS EDUARDO RODRÍGUEZ [facility] REC#: [id number] PT STATUS: ADM Alfredito : 1945 PHYSICIAN: RAMY CALABRESE MD ADMIT DATE: 04/08/22/ICU Signed Date of Exam:04/08/22 CHEST 1 VIEW, AP/PA ONLY INDICATION: Sepsis, urinary tract infection. TECHNIQUE: Single view chest 7:50 AM. CORRELATION STUDY: 02/08/2016 FINDINGS: Heart size and mediastinum have become enlarged and more prominent from prior. Mediastinal fullness most pronounced in the right suprahilar region. Pulmonary vasculature overall within normal limits. There is linear parenchymal densities emanating from the right hilum into the right upper lung field. No lobar consolidating infiltrate. Lung urrutia are otherwise hyperlucent and hyperinflated. IMPRESSION: 1. No acute consolidating infiltrate suggests pneumonia. 2. There has been change and development of cardiac enlargement as well as some prominence and fullness of right suprahilar region with suggestion of scarlike formation of the right perihilar region. This finding is nonspecific. Given interval change, follow-up imaging evaluation recommended. Additionally, correlation 2 View Chest and/or CT imaging is recommended. Dictated by: Dictated on workstation # [id number] Dict: 04/08/22 0753 Trans: 04/08/22918 [id number] Interpreted by: DEVIN MARCELINO DO Electronically signed by: DEVIN MARCELINO DO 04/08/22 0919 Assessment/Plan Admission Diagnosis Acute hypoxic respiratory failure Admission Status: Inpatient Order (span 2 midnights) Reason for Inpatient Admission: see below Assessment and Plan Acute on chronic hypoxic respiratory failure COPD with acute exacerbation Worsening respiratory status I rounded on patient multiple times this AM before and after breathign treatments and while on BiPAP Pt not tolerating BiPAP and attempting to remove, very wheezy on both exams, worsening belly breathing as well Decision made to intubate- patient and agree with plan Solumedrol MAT protocol TeleICU consulted, discussed with Dr Samuels who agrees with plan to intubate Sepsis- severe POA Nephrolithiais JUAN Likely due to UTI Continue on abx Will discuss with Urology tomorrow AM regarding stones Add flomax when BP improved Continue IVF HTN BP low, hold home meds HLD Continue home meds h/o CVA Chronic anticoagulation No deficits on Warfarin, INR subtherapuetic DVT ppx: Continue home warfarin Diagnosis/Problems Diagnosis/Problems (1) Acute respiratory failure Qualifiers: Respiratory failure complication: hypoxia Qualified Codes: J96.01 - Acute respiratory failure with hypoxia (2) Essential (primary) hypertension Status: Chronic (3) HLD (hyperlipidemia) Status: Chronic Qualifiers: Hyperlipidemia type: mixed hyperlipidemia Qualified Codes: E78.2 - Mixed hyperlipidemia (4) COPD with acute exacerbation Status: Acute (5) UTI (urinary tract infection) Status: Acute Qualifiers: Urinary tract infection type: acute cystitis Hematuria presence: with hematuria Qualified Codes: N30.01 - Acute cystitis with hematuria (6) Sepsis Status: Acute Qualifiers: Sepsis type: sepsis due to unspecified organism Sepsis acute organ dysfunction status: with acute organ dysfunction Severe sepsis acute organ dysfunction type: acute renal failure Acute renal failure type: unspecified Severe sepsis shock status: unspecified Qualified Codes: A41.9 - Sepsis, unspecified organism; R65.20 - Severe sepsis without septic shock; N17.9 - Acute kidney failure, unspecified (7) Mass of left thigh Status: Acute (8) Ureteral calculus, left Status: Acute Copy Copies To 1: PRITI MARTÍNEZ MD, KATELYN M MD Apr 08, 2022 09:56
[2022-04-08] MEDS ORDERED: RT-ALBUTEROL SULF 2.5 MG/3 ML PRE-MIX VIAL ONE (10:26)
[2022-04-08] MEDS ORDERED: RT-ALBUTEROL/IPRATROPIUM 3 ML (DUONEB) VIAL ONE (10:27)
[2022-04-08] MEDS ORDERED: PROPOFOL DRIP (ICU) 100 ML IV ONE (10:46)
[2022-04-08] MEDS ORDERED: DexMEDEtomidine 250 ML DRIP 250 ML IV ONE (11:05)
--- NOTE | 2022-04-08 11:17 | Diagnostic Imaging Report ---
EXAMINATION: Chest radiograph, portable AP view. DATE: 04/08/2022 11:13 AM INDICATION: 76-year-old male, shortness of breath. COMPARISON: April 08, 2022 at 0750 hours. FINDINGS: There has been interval placement of an endotracheal tube which is located approximately 7.8 cm above the chel. The nasogastric tube is also new and extends to the inferior margin of the included [id number]. Heart size and mediastinal contours are unchanged. There is no identified pneumothorax. There is no large pleural effusion. There is no identified focal airspace consolidation. IMPRESSION: No identified acute cardiopulmonary abnormality. Dictated by: Dictated on workstation # [id number]
[2022-04-08] MEDS: DexMEDEtomidine 250 ML DRIP 250 ML IV SCH (11:28)
[2022-04-08] MEDS: PROPOFOL DRIP (ICU) 100 ML IV SCH ×4 (13:15→21:42)
[2022-04-08 14:22] VITALS: BP 138/67
[2022-04-08] MEDS ORDERED: ETOMIDATE IV SOLN 20 MG/10 ML VIAL IV ONE (15:35)
[2022-04-08] MEDS ORDERED: ROSU5TAB13 PO (17:08)
[2022-04-08] MEDS ORDERED: AMLO2.5T2 PO (17:08)
[2022-04-08] MEDS: inSUlin ASPART (NovoLOG) 1 UNIT/0.01 ML (CHARGE PER UNIT) SC SCH ×2 (18:26→23:16)
[2022-04-08 18:42] VITALS: BP 132/70
[2022-04-08 21:44] VITALS: BP 103/55
[2022-04-08] MEDS: methylPREDNISolone 125 MG (Solu-MEDROL) VIAL IVP SCH (23:16)
[2022-04-09] MEDS: PROPOFOL DRIP (ICU) 100 ML IV SCH ×6 (00:49→21:52)
[2022-04-09 02:28] VITALS: BP 126/68
[2022-04-09] MEDS: RT-ALBUTEROL/IPRATROPIUM 3 ML (DUONEB) VIAL INH SCH ×6 (02:28→23:19)
[2022-04-09 04:24] LABS: BASOPHILS % (AUTO) 0 % (0-10); EOSINOPHILS % (AUTO) 0 % (0-10); HEMATOCRIT 35 % (40-54); HEMOGLOBIN 11.1 g/dL (13.3-17.7); LYMPHOCYTES # (AUTO) 0.8 X 10^3 (1.0-4.0); LYMPHOCYTES % (AUTO) 5 % (12-44); MEAN CORPUSCULAR HEMOGLOBIN 32 pg (25-34); MEAN CORPUSCULAR HGB CONC 32 g/dL (32-36); MEAN CORPUSCULAR VOLUME 99 fL (80-99); MEAN PLATELET VOLUME 10.5 fL (9.0-12.2); MONOCYTES # (AUTO) 0.5 X 10^3 (0.0-1.0); MONOCYTES % (AUTO) 3 % (0-12); NEUTROPHILS # (AUTO) 14.9 X 10^3 (1.8-7.8); NEUTROPHILS % (AUTO) 91 % (42-75); PLATELET COUNT 218 10^3/uL (130-400); WHITE BLOOD COUNT 16.3 10^3/uL (4.3-11.0)
[2022-04-09 04:37] LABS: INR 2.1 (0.8-1.4); PROTHROMBIN TIME PATIENT 24.3 SEC (12.2-14.7)
[2022-04-09 04:49] LABS: CALCIUM 8.6 MG/DL (8.5-10.1); CREATININE SERUM 2.38 MG/DL (0.60-1.30); POTASSIUM 4.8 MMOL/L (3.6-5.0)
[2022-04-09 04:51] LABS: MAGNESIUM 1.9 MG/DL (1.6-2.4); PHOSPHORUS 3.5 MG/DL (2.3-4.7)
[2022-04-09] MEDS: DexMEDEtomidine 250 ML DRIP 250 ML IV SCH ×3 (04:53→22:44)
[2022-04-09] MEDS: MAGNESIUM 1 GM/100 ML IVPB 100 ML IV SCH (04:58)
[2022-04-09] MEDS: POTASSIUM CL 10MEQ/50ML IVPB 50 ML IV SCH (04:58)
[2022-04-09] MEDS: KCL 20 MEQ TAB (K-DUR) PO SCH (04:58)
[2022-04-09] MEDS: methylPREDNISolone 125 MG (Solu-MEDROL) VIAL IVP SCH ×4 (05:06→22:55)
[2022-04-09] MEDS: inSUlin ASPART (NovoLOG) 1 UNIT/0.01 ML (CHARGE PER UNIT) SC SCH ×4 (05:06→22:54)
[2022-04-09 07:14] VITALS: BP 134/69
--- NOTE | 2022-04-09 07:29 | Diagnostic Imaging Report ---
INDICATION: Respiratory failure. Intubated patient. COMPARISON: 04/08/2022 FINDINGS: Single frontal radiographic view of the chest was obtained and again demonstrates indwelling endotracheal tube with tip below the clavicular heads and above the chel. Gastric tube is also noted. Tip appears to terminate within the left upper abdominal quadrant. Cardiac silhouette and pulmonary vasculature are within normal limits. Lungs remain clear. There is no focal consolidation, large effusion, no pneumothorax. Osseous structures show no gross acute abnormalities. IMPRESSION: 1. Lines and tubes as above. 2. No other acute cardiopulmonary process. Dictated by: Dictated on workstation # [id number]
[2022-04-09] MEDS: LACTATED RINGERS 1,000 ML IV SCH ×4 (09:18→20:36)
[2022-04-09] MEDS: cefTRIAXone 1 GM IV (PRE-MIX) 50 ML IV SCH (09:19)
--- NOTE | 2022-04-09 09:29 | Tele-ICU Progress Note ---
Subjective Date Seen by a Provider: Apr 09, 2022 Time Seen by a Provider: 09:27 Subjective/Events-last exam (Tele-ICU Physician , Progress Note ) Available chart/ vitals / labs / Images reviewed Video assessment done using teleICU camera, rest of exam as per RN Discussed with RN , EXAM PER RN Events overnight : Afebrile FiO2 - I/O = neg 500 Drips: Pressors: , hemodynamically stable Sedation gtt: prp 30 precedex 0.9 ( RASS -2 ) VENT SETTINGS and ABG reviewed Not candidate for SBT today REVIEWED Cardiovascular Stability / Sedation Score / FI02/PEEP / ABG / CXR Consultants: Hospital course: (04/08) 76m admitted for Renal stones and UTI and COPD exac. Failed Bipap and intubated 04/09 AC 14 480 30% +3 , PAP 21 A/P Acute resp failure with AECOPD - AC 14 480 +5 20 - CXR is clear PAP low - will reassess tomorrow for SBT - today will rest JUAN ( with mild left hydronephrosis) - Cr worsenifn , will give additional IVF - if decrease UO will repeat US renal tomorrow Kidney stones - CT 04/08 - 2 mm stone in the left distal ureter with very mild left hydronep hrosis. - empiric abx started AECOPD- SM 60 q 6 COPD/home O2 4 LPM and ? prednisone 10 ( as per MAR reported Hyperglycemia - with steroids H/O stroke and carotid stenosis - on warfarin - INR 2 - follow syncopal episode and tipped over off of the stool - reported without injury - follow Lines : (Central Line Necessity Reviewed) Tian: + OG: + LIS Nutrition: on hold Analgesia: Anxiety/ delirium VTE Prophylaxis: INR 2. 0 Stress Ulcer Prophylaxis: stating Pepcid 04/09 - on steroids IV Plans in collaboration with bedside consultants and IM MDs. Discussed with RN to reach out if any questions or concerns A total of 33minutes of critical care time was devoted to this patient today, required to treat and/or prevent further deterioration of critical care conditio n ( as above) . Sepsis Event Evaluation Height, Weight, BMI Height: 6'1.00" Weight: 235lbs. 0.4oz. 85.433263fd; 31.40 BMI Method:Stated Focused Exam Lactate Level 04/08/22 09:45: Lactic Acid Level 2.27*H 04/08/22 12:05: Lactic Acid Level 3.25*H 04/08/22 14:23: Lactic Acid Level 2.15*H Exam Exam Patient acknowledged, consented, and participated in this virtual visit which was conducted using real time audio/video Vital Signs Date Time Temp Pulse Resp B/P (MAP) Pulse Ox O2 Delivery O2 Flow Rate FiO2 04/09/22 08:00 89 28 132/65 94 Mechanical Ventilator 30.00 04/09/22 07:55 36.9 04/09/22 07:39 30 04/09/22 07:30 93 Mechanical Ventilator 30 04/09/22 07:14 81 17 94 45 04/09/22 07:00 82 22 134/69 94 Mechanical Ventilator 30.00 04/09/22 06:41 87 04/09/22 06:39 82 130/68 04/09/22 06:06 Mechanical Ventilator 30.00 04/09/22 06:00 82 18 136/69 95 Mechanical Ventilator 35.00 04/09/22 05:00 85 18 129/65 95 Mechanical Ventilator 35.00 04/09/22 04:53 86 128/67 04/09/22 04:35 Mechanical Ventilator 35.00 04/09/22 04:00 86 18 134/69 97 Mechanical Ventilator 45.00 04/09/22 04:00 36.5 04/09/22 03:25 36.5 Mechanical Ventilator 45.00 04/09/22 03:05 45 04/09/22 03:05 97 Mechanical Ventilator 45 04/09/22 03:00 86 18 128/67 97 Mechanical Ventilator 45.00 04/09/22 02:28 82 19 98 45 04/09/22 02:00 82 18 127/67 98 Mechanical Ventilator 45.00 04/09/22 01:00 83 18 126/64 97 Mechanical Ventilator 45.00 04/09/22 01:00 83 04/09/22 00:49 Mechanical Ventilator 45.00 04/09/22 00:49 85 127/66 04/09/22 00:00 85 18 122/67 97 Mechanical Ventilator 50.00 04/08/22 23:10 98 Mechanical Ventilator 50 04/08/22 23:05 50 04/08/22 23:00 36.3 89 18 112/57 98 Mechanical Ventilator 50.00 04/08/22 22:00 83 24 94/53 98 Mechanical Ventilator 50.00 04/08/22 21:44 80 18 98 50 04/08/22 21:42 82 103/53 04/08/22 21:00 81 24 133/69 97 Mechanical Ventilator 50.00 04/08/22 20:51 Mechanical Ventilator 50.00 04/08/22 20:00 82 24 130/67 98 Mechanical Ventilator 55.00 04/08/22 19:54 Mechanical Ventilator 55.00 04/08/22 19:25 98 Mechanical Ventilator 65 04/08/22 19:25 65 04/08/22 19:00 80 04/08/22 19:00 36.4 82 24 127/66 98 Mechanical Ventilator 65.00 04/08/22 18:50 78 132/70 04/08/22 18:42 78 16 98 65 04/08/22 18:00 77 21 131/68 98 Mechanical Ventilator 65.00 04/08/22 17:00 77 21 131/67 98 Mechanical Ventilator 65.00 04/08/22 16:49 97 Mechanical Ventilator 65 04/08/22 16:00 79 137/73 98 Mechanical Ventilator 65.00 04/08/22 16:00 36.3 04/08/22 15:54 79 138/76 04/08/22 15:40 81 123/64 04/08/22 15:00 81 123/64 98 Mechanical Ventilator 65.00 04/08/22 14:22 76 20 98 65 04/08/22 14:00 76 135/64 99 Mechanical Ventilator 75.00 04/08/22 13:15 81 123/64 04/08/22 13:00 78 25 141/59 98 Mechanical Ventilator 75.00 04/08/22 13:00 78 04/08/22 12:00 95 25 94/79 98 Mechanical Ventilator 75.00 04/08/22 12:00 98 Mechanical Ventilator 75 04/08/22 11:28 92 154/70 04/08/22 11:00 124 25 175/99 99 Mechanical Ventilator 75.00 04/08/22 10:00 92 52 154/70 97 NIV Bilevel 28.00 04/08/22 09:58 98 I & O 04/09/22 07:00 Intake Total 840 ml Output Total 1500 ml Balance -660 ml Height & Weight Height: 6'1.00" Weight: 235lbs. 0.4oz. 85.906753mp; 31.40 BMI Method:Stated General Appearance: Chronically ill, Moderate Distress, Obese HEENT: PERRL/EOMI; No Scleral Icterus (L), No Scleral Icterus (R); Other (ecam obscured by BiPAP mask) Neck: Normal Inspection, Supple; No JVD Respiratory: Accessory Muscle Use, Decreased Breath Sounds, Wheezing (scant as barely moving much air) Cardiovascular: Regular Rate, Rhythm, No JVD, No Murmur, Normal Peripheral Pulses Capillary Refill: Less Than 3 Seconds Extremity: Normal Capillary Refill, No Calf Tenderness, No Pedal Edema Neurologic/Psychiatric: Alert, Other (able to nod to a couple of questions, seems appropriate but unable to assess orientation) Skin: Normal Color, Warm/Dry Results Lab Laboratory Tests 04/08/22 05:39 04/09/22 04:11 Assessment/Plan Assessment/Plan ` ALFONSO MCCABE MD Apr 09, 2022 09:29
[2022-04-09] MEDS ORDERED: ALPR0.5T7 PO (09:52)
[2022-04-09] MEDS ORDERED: ZINC50TA58 PO (09:52)
[2022-04-09] MEDS ORDERED: CHOL200059 PO (09:52)
[2022-04-09] MEDS ORDERED: WARF-48 PO (09:52)
[2022-04-09] MEDS ORDERED: ASCO-262 PO (09:52)
[2022-04-09] MEDS ORDERED: PRD10T PO (09:52)
[2022-04-09] MEDS ORDERED: ACET-2267 PO (09:55)
[2022-04-09] MEDS ORDERED: NFCHLORHGL PO (09:55)
[2022-04-09 11:03] VITALS: BP 119/69
--- NOTE | 2022-04-09 11:07 | Progress Note - Hospitalist ---
Subjective HPI/CC On Admission Date Seen by Provider: Apr 09, 2022 Patient 76-year-old male with past medical history of COPD with baseline 4 L/min oxygen requirement, CVA, hyperlipidemia who presented to the emergency department due to abdominal pain. He had imaging that revealed multiple kidney stones and they were prepping for discharge as his pain was controlled but he became hypotensive. In review of labs he was found to have a leukocytosis of 18,000 and decision was made to admit for further management. I was called to bedside shortly after arrival to the ICU due to decline in respiratory status. He is unable to provide me much history and is pulling at his BiPAP. His states that he has known COPD and wears 4 L of oxygen per minute. She states he would be agreeable with intubation if needed. He is unable to provide me any history due to his clinical condition. Subjective/Events-last exam Pt remains intubated and sedated. No ROS possible. No family at bedside. Focused Exam Lactate Level 04/08/22 09:45: Lactic Acid Level 2.27*H 04/08/22 12:05: Lactic Acid Level 3.25*H 04/08/22 14:23: Lactic Acid Level 2.15*H Objective Exam Vital Signs Vital Signs Date Time Temp Pulse Resp B/P (MAP) Pulse Ox O2 Delivery O2 Flow Rate FiO2 04/10/22 14:00 85 22 138/67 94 Mechanical Ventilator 30.00 04/10/22 12:09 37.0 04/10/22 11:34 30 Capillary Refill : Less Than 3 Seconds General Appearance: Obese, Other (intubated and sedated) Neck: No JVD Respiratory: Decreased Breath Sounds; No Wheezing; Other (on vent) Cardiovascular: Regular Rate, Rhythm, No Murmur Gastrointestinal: Normal Bowel Sounds, Non Tender, Soft Rectal: Other (vogt) Extremity: Normal Capillary Refill, No Pedal Edema Neurologic/Psychiatric: Other (sedaated, appears comfortable) Skin: Normal Color; No Diaphoresis Results/Procedures Lab Laboratory Tests 04/10/22 04:05 Patient resulted labs reviewed. Imaging: Reviewed Imaging Report Assessment/Plan Assessment and Plan Assess & Plan/Chief Complaint Acute on chronic hypoxic respiratory failure COPD with acute exacerbation Continue steroids Remains on vent TeleICU consulted, appreciate recs MAT Protocol Called TeleICU to discuss case Sepsis- severe POA Nephrolithiais JUAN Likely due to UTI Continue on abx, await cultures Discussed with Dr Alicea who will see patient tomorrow Hold anticoagulation, keep vogt in per his recs Reviewed labs- Creatinine up today, likely due to transient hypotension yesterday Continue IVF, monitor UOP HTN BP improved today HLD Continue home meds as able when med rec done h/o CVA Chronic anticoagulation No deficits on Warfarin, INR subtherapuetic CT Head given syncopal episode DVT ppx: Hold anticoagulation for possible urological intervention Critical Care Critically Ill Patient Diagnosis/Problems Diagnosis/Problems (1) Acute respiratory failure Qualifiers: Respiratory failure complication: hypoxia Qualified Codes: J96.01 - Acute respiratory failure with hypoxia (2) Essential (primary) hypertension Status: Chronic (3) HLD (hyperlipidemia) Status: Chronic Qualifiers: Hyperlipidemia type: mixed hyperlipidemia Qualified Codes: E78.2 - Mixed hyperlipidemia (4) COPD with acute exacerbation Status: Acute (5) UTI (urinary tract infection) Status: Acute Qualifiers: Urinary tract infection type: acute cystitis Hematuria presence: with hematuria Qualified Codes: N30.01 - Acute cystitis with hematuria (6) Sepsis Status: Acute Qualifiers: Sepsis type: sepsis due to unspecified organism Sepsis acute organ dysfunction status: with acute organ dysfunction Severe sepsis acute organ dysfunction type: acute renal failure Acute renal failure type: unspecified Severe sepsis shock status: unspecified Qualified Codes: A41.9 - Sepsis, unspecified organism; R65.20 - Severe sepsis without septic shock; N17.9 - Acute kidney failure, unspecified (7) Mass of left thigh Status: Acute (8) Ureteral calculus, left Status: Acute MARK LAZARO MD Apr 09, 2022 11:07
--- NOTE | 2022-04-09 13:17 | Diagnostic Imaging Report ---
Indication: PICC line placement. Time of Exam: 12:50 PM Comparison is made with prior radiograph earlier same day. Right upper extremity PICC line has a tip overlying the low SVC. ET tube and NG tube are in place. Lungs demonstrate some minimal infiltrate or atelectasis right upper lobe. No pneumothorax. IMPRESSION: PICC line placement, as described. Dictated by: Dictated on workstation # [id number]
[2022-04-09 14:17] VITALS: BP 156/77
[2022-04-09] MEDS: LORazepam INJ 2 MG/ML (ATIVAN) VIAL IVP PRN ×2 (15:03→23:40)
[2022-04-09] MEDS: morphine INJ 4 MG/ML 1 ML (VIAL/SYRINGE) IV PRN (15:44)
--- NOTE | 2022-04-09 15:47 | Diagnostic Imaging Report ---
PROCEDURE: CT head without contrast. TECHNIQUE: Multiple contiguous axial images were obtained through the brain without the use of intravenous contrast. Auto Exposure Controls were utilized during the CT exam to meet ALARA standards for radiation dose reduction. INDICATION: Altered mental status and previous stroke. COMPARISON: Correlation is made with prior head CT from 10/10/2011. FINDINGS: There is an area of encephalomalacia in the right frontal lobe consistent with prior infarct. No sulcal effacement or midline shift is identified. No acute intra-axial or extra-axial hemorrhage is detected. Cisterns are patent. Visualized paranasal sinuses are clear. IMPRESSION: Chronic changes. No acute intracranial process is detected. Dictated by: Dictated on workstation # [id number]
[2022-04-09 19:05] VITALS: BP 159/75
[2022-04-09 23:19] VITALS: BP 118/75
[2022-04-10] MEDS: PROPOFOL DRIP (ICU) 100 ML IV SCH ×4 (00:54→07:21)
[2022-04-10] MEDS ORDERED: LABETALOL HCL 20 MG/4 ML VIAL ONE (01:07)
[2022-04-10] MEDS: LABETALOL HCL 20 MG/4 ML VIAL IV PRN ×6 (01:21→21:22)
[2022-04-10 02:51] VITALS: BP 191/79
[2022-04-10] MEDS: RT-ALBUTEROL/IPRATROPIUM 3 ML (DUONEB) VIAL INH SCH ×6 (02:51→22:12)
[2022-04-10] MEDS: LACTATED RINGERS 1,000 ML IV SCH ×3 (03:08→17:50)
[2022-04-10] MEDS ORDERED: hydrALAZINE (APESOLINE) 20 MG/ML VIAL ONE (03:11)
[2022-04-10] MEDS: hydrALAZINE (APESOLINE) 20 MG/ML VIAL IV PRN ×3 (03:12→20:00)
[2022-04-10] MEDS: DexMEDEtomidine 250 ML DRIP 250 ML IV SCH ×2 (04:56→11:31)
[2022-04-10] MEDS: LORazepam INJ 2 MG/ML (ATIVAN) VIAL IVP PRN ×2 (05:05→20:00)
[2022-04-10] MEDS: methylPREDNISolone 125 MG (Solu-MEDROL) VIAL IVP SCH ×3 (05:05→17:49)
[2022-04-10 05:10] LABS: BASOPHILS % (AUTO) 0 % (0-10); EOSINOPHILS % (AUTO) 0 % (0-10); HEMATOCRIT 33 % (40-54); HEMOGLOBIN 10.7 g/dL (13.3-17.7); LYMPHOCYTES # (AUTO) 0.5 10^3/uL (1.0-4.0); LYMPHOCYTES % (AUTO) 3 % (12-44); MEAN CORPUSCULAR HEMOGLOBIN 32 pg (25-34); MEAN CORPUSCULAR HGB CONC 32 g/dL (32-36); MEAN CORPUSCULAR VOLUME 99 fL (80-99); MEAN PLATELET VOLUME 10.9 fL (9.0-12.2); MONOCYTES % (AUTO) 5 % (0-12); NEUTROPHILS # (AUTO) 18.8 10^3/uL (1.8-7.8); NEUTROPHILS % (AUTO) 91 % (42-75); PLATELET COUNT 221 10^3/uL (130-400); WHITE BLOOD COUNT 20.6 10^3/uL (4.3-11.0)
[2022-04-10 05:18] LABS: POTASSIUM 4.4 MMOL/L (3.6-5.0)
[2022-04-10 05:20] LABS: CALCIUM 8.2 MG/DL (8.5-10.1)
[2022-04-10 05:24] LABS: CREATININE SERUM 1.92 MG/DL (0.60-1.30)
[2022-04-10] MEDS: POTASSIUM CL 10MEQ/50ML IVPB 50 ML IV SCH (06:52)
[2022-04-10] MEDS: KCL 20 MEQ TAB (K-DUR) PO SCH (06:52)
[2022-04-10] MEDS: inSUlin ASPART (NovoLOG) 1 UNIT/0.01 ML (CHARGE PER UNIT) SC SCH ×3 (06:52→17:28)
[2022-04-10] MEDS: MAGNESIUM 1 GM/100 ML IVPB 100 ML IV SCH (06:52)
[2022-04-10 07:04] VITALS: BP 194/89
[2022-04-10 08:11] LABS: INR 2.1 (0.8-1.4); PROTHROMBIN TIME PATIENT 23.6 SEC (12.2-14.7)
--- NOTE | 2022-04-10 08:36 | Progress Note - Hospitalist ---
Subjective HPI/CC On Admission Date Seen by Provider: Apr 10, 2022 Patient 76-year-old male with past medical history of COPD with baseline 4 L/min oxygen requirement, CVA, hyperlipidemia who presented to the emergency department due to abdominal pain. He had imaging that revealed multiple kidney stones and they were prepping for discharge as his pain was controlled but he became hypotensive. In review of labs he was found to have a leukocytosis of 18,000 and decision was made to admit for further management. I was called to bedside shortly after arrival to the ICU due to decline in respiratory status. He is unable to provide me much history and is pulling at his BiPAP. His states that he has known COPD and wears 4 L of oxygen per minute. She states he would be agreeable with intubation if needed. He is unable to provide me any history due to his clinical condition. Subjective/Events-last exam Pt remains intubated and sedated. No ROS possible. Focused Exam Lactate Level 04/08/22 09:45: Lactic Acid Level 2.27*H 04/08/22 12:05: Lactic Acid Level 3.25*H 04/08/22 14:23: Lactic Acid Level 2.15*H Objective Exam Vital Signs Vital Signs Date Time Temp Pulse Resp B/P (MAP) Pulse Ox O2 Delivery O2 Flow Rate FiO2 04/10/22 14:00 85 22 138/67 94 Mechanical Ventilator 30.00 04/10/22 12:09 37.0 04/10/22 11:34 30 Capillary Refill : Less Than 3 Seconds General Appearance: Obese, Other (intubated and sedated) Respiratory: Lungs Clear, Other (on vent) Cardiovascular: Regular Rate, Rhythm, No Murmur Gastrointestinal: Normal Bowel Sounds, Soft Genital/Rectal: Other (vogt) Extremity: Normal Capillary Refill, Pedal Edema Neurologic/Psychiatric: Other (sedated, appears comfortable) Results/Procedures Lab Laboratory Tests 04/10/22 04:05 Patient resulted labs reviewed. Imaging: Reviewed Imaging Report Assessment/Plan Assessment and Plan Assess & Plan/Chief Complaint Acute on chronic hypoxic respiratory failure COPD with acute exacerbation Continue steroids Remains on vent TeleICU consulted, appreciate recs MAT Protocol Sepsis- severe POA Nephrolithiais JUAN Likely due to UTI Continue on abx, NGTD despite moderate bacteria on UA Urology consulted, appreciate recs Hold anticoagulation, keep vogt in per his recs Creatinine improving with IVF UOP adequate HTN BP somewhat elevated today HLD Continue home meds as able when med rec done h/o CVA Chronic anticoagulation No deficits on Warfarin, INR 2.[address] Head negative for acute findings DVT ppx: Hold anticoagulation for possible urological intervention Critical Care Critically Ill Patient Diagnosis/Problems Diagnosis/Problems (1) Acute respiratory failure Qualifiers: Respiratory failure complication: hypoxia Qualified Codes: J96.01 - Acute respiratory failure with hypoxia (2) Essential (primary) hypertension Status: Chronic (3) HLD (hyperlipidemia) Status: Chronic Qualifiers: Hyperlipidemia type: mixed hyperlipidemia Qualified Codes: E78.2 - Mixed hyperlipidemia (4) COPD with acute exacerbation Status: Acute (5) UTI (urinary tract infection) Status: Acute Qualifiers: Urinary tract infection type: acute cystitis Hematuria presence: with hematuria Qualified Codes: N30.01 - Acute cystitis with hematuria (6) Sepsis Status: Acute Qualifiers: Sepsis type: sepsis due to unspecified organism Sepsis acute organ dysfunction status: with acute organ dysfunction Severe sepsis acute organ dysfunction type: acute renal failure Acute renal failure type: unspecified Severe sepsis shock status: unspecified Qualified Codes: A41.9 - Sepsis, unspecified organism; R65.20 - Severe sepsis without septic shock; N17.9 - Acute kidney failure, unspecified (7) Mass of left thigh Status: Acute (8) Ureteral calculus, left Status: Acute MARK LAZARO MD Apr 10, 2022 08:36
[2022-04-10] MEDS: cefTRIAXone 1 GM IV (PRE-MIX) 50 ML IV SCH (08:56)
[2022-04-10] MEDS: FAMOTIDINE 20MG/2ML IV (PEPCID) IVP SCH (08:57)
[2022-04-10] MEDS: morphine INJ 4 MG/ML 1 ML (VIAL/SYRINGE) IV PRN (09:32)
--- NOTE | 2022-04-10 09:42 | Tele-ICU Progress Note ---
Subjective Date Seen by a Provider: Apr 10, 2022 Time Seen by a Provider: 09:42 Subjective/Events-last exam (Tele-ICU Physician , Progress Note ) Available chart/ vitals / labs / Images reviewed Video assessment done using teleICU camera, rest of exam as per RN Discussed with RN , EXAM PER RN Events overnight : hypertensive Afebrile FiO2 - 30 I/O = neg 500 Drips: lr 100 Pressors: , hemodynamically stable Sedation gtt: prp 30 precedex1.5 ( RASS -2 ) VENT SETTINGS and ABG reviewed Not candidate for SBT today REVIEWED Cardiovascular Stability / Sedation Score / FI02/PEEP / ABG / CXR Consultants: Hospital course: (04/08) 76m admitted for Renal stones and UTI and COPD exac. Failed Bipap and intubated 04/09 AC 14 480 30% +3 , PAP 21 A/P Acute resp failure with AECOPD - AC 14 480 +5 20 - PAP low - will reassess today for SBT, repeat cxr tomorrow LRTI - sputun with ksleb / enterob - rocephin JUAN ( with mild left hydronephrosis) - Cr improvedwith additional IVF - follow closely for possible VO Kidney stones - CT 04/08 - 2 mm stone in the left distal ureter with very mild left hydronephrosis. - empiric abx started AECOPD- -nebs - SM 60 q 6 (COPD/home O2 4 LPM) Hyperglycemia - with steroids H/O stroke and carotid stenosis - on warfarin - INR 2 - follow syncopal episode and tipped over off of the stool - reported without injury - follow Lines : (Central Line Necessity Reviewed) Tian: + OG: + LIS Nutrition: to start 04/10 if not extubated Analgesia: Anxiety/ delirium VTE Prophylaxis: INR 2. 0 Stress Ulcer Prophylaxis: stating Pepcid 04/09 - on steroids IV Plans in collaboration with bedside consultants and IM MDs. 9 discussed 04/[address] Ordaz Discussed with RN to reach out if any questions or concerns A total of 33minutes of critical care time was devoted to this patient today, required to treat and/or prevent further deterioration of critical care condition ( as above) . Sepsis Event Evaluation Height, Weight, BMI Height: 6'1.00" Weight: 235lbs. 0.4oz. 85.288853ey; 31.76 BMI Method:Stated Focused Exam Lactate Level 04/08/22 09:45: Lactic Acid Level 2.27*H 04/08/22 12:05: Lactic Acid Level 3.25*H 04/08/22 14:23: Lactic Acid Level 2.15*H Exam Exam Patient acknowledged, consented, and participated in this virtual visit which was conducted using real time audio/video Vital Signs Date Time Temp Pulse Resp B/P (MAP) Pulse Ox O2 Delivery O2 Flow Rate FiO2 04/10/22 09:00 74 22 179/81 92 Mechanical Ventilator 30.00 04/10/22 08:00 78 22 177/82 92 Mechanical Ventilator 30.00 04/10/22 07:45 93 Mechanical Ventilator 30 04/10/22 07:36 36.8 04/10/22 07:30 30 04/10/22 07:21 80 179/81 04/10/22 07:04 79 15 92 30 04/10/22 07:00 76 21 194/89 92 Mechanical Ventilator 30.00 04/10/22 06:46 81 04/10/22 06:00 79 14 185/94 92 Mechanical Ventilator 30.00 04/10/22 05:00 81 14 184/75 92 Mechanical Ventilator 30.00 04/10/22 04:56 180/83 04/10/22 04:56 81 180/83 04/10/22 04:00 36.8 04/10/22 04:00 82 14 180/80 92 Mechanical Ventilator 30.00 04/10/22 03:41 93 Mechanical Ventilator 30 04/10/22 03:05 78 206/94 04/10/22 03:00 79 14 206/94 92 Mechanical Ventilator 30.00 04/10/22 02:51 82 15 93 30 04/10/22 02:31 30 04/10/22 02:00 95 14 192/96 93 Mechanical Ventilator 30.00 04/10/22 01:00 92 14 159/82 92 Mechanical Ventilator 30.00 04/10/22 01:00 92 04/10/22 00:54 173/81 04/10/22 00:00 96 14 156/65 92 Mechanical Ventilator 30.00 04/09/22 23:39 36.4 04/09/22 23:33 93 Mechanical Ventilator 30 04/09/22 23:25 30 04/09/22 23:19 95 16 93 30 04/09/22 23:00 88 14 162/78 93 Mechanical Ventilator 30.00 04/09/22 22:44 90 157/84 04/09/22 22:00 92 14 161/85 93 Mechanical Ventilator 30.00 04/09/22 21:52 90 153/81 04/09/22 21:00 91 14 151/69 93 Mechanical Ventilator 30.00 04/09/22 20:00 37.0 25 Mechanical Ventilator 30.00 04/09/22 20:00 92 14 146/74 92 Mechanical Ventilator 30.00 04/09/22 20:00 93 Mechanical Ventilator 30 04/09/22 19:25 30 04/09/22 19:05 89 18 93 30 04/09/22 19:00 91 04/09/22 19:00 91 14 159/75 93 Mechanical Ventilator 30.00 04/09/22 18:21 92 134/79 04/09/22 18:00 86 24 153/77 93 Mechanical Ventilator 30.00 04/09/22 17:00 85 24 146/75 93 Mechanical Ventilator 30.00 04/09/22 16:00 90 25 148/68 93 Mechanical Ventilator 30.00 04/09/22 15:45 30 04/09/22 15:45 93 Mechanical Ventilator 30 04/09/22 15:44 92 134/79 04/09/22 15:44 90 134/79 04/09/22 15:00 92 65 150/67 94 Mechanical Ventilator 30.00 04/09/22 14:17 89 18 94 30 04/09/22 14:00 90 31 155/72 94 Mechanical Ventilator 30.00 04/09/22 13:04 90 144/68 04/09/22 13:00 90 17 144/68 93 Mechanical Ventilator 30.00 04/09/22 12:29 92 04/09/22 12:00 37.2 04/09/22 12:00 93 27 158/79 93 Mechanical Ventilator 30.00 04/09/22 11:45 93 Mechanical Ventilator 30 04/09/22 11:45 30 04/09/22 11:03 87 20 93 45 04/09/22 11:00 88 119/69 91 Mechanical Ventilator 30.00 04/09/22 10:00 85 28 157/77 94 Mechanical Ventilator 30.00 I & O 04/10/22 07:00 Intake Total 3230 ml Output Total 2835 ml Balance 395 ml Height & Weight Height: 6'1.00" Weight: 235lbs. 0.4oz. 85.844010pg; 31.76 BMI Method:Stated General Appearance: Obese, Other (intubated and sedated) HEENT: PERRL/EOMI; No Scleral Icterus (L), No Scleral Icterus (R); Other (ecam obscured by BiPAP mask) Neck: No JVD Respiratory: Lungs Clear, Other (on vent) Cardiovascular: Regular Rate, Rhythm, No Murmur Capillary Refill: Less Than 3 Seconds Extremity: Normal Capillary Refill, Pedal Edema Neurologic/Psychiatric: Other (sedated, appears comfortable) Skin: Normal Color; No Diaphoresis Results Lab Laboratory Tests 04/09/22 04:11 04/10/22 04:05 Assessment/Plan Assessment/Plan ` ALFONSO MCCABE MD Apr 10, 2022 09:42
[2022-04-10 10:58] VITALS: BP 163/82
[2022-04-10 14:45] VITALS: BP 153/70
[2022-04-10 22:12] VITALS: BP 179/80
[2022-04-11] MEDS: methylPREDNISolone 125 MG (Solu-MEDROL) VIAL IVP SCH ×5 (00:12→23:00)
[2022-04-11] MEDS: hydrALAZINE (APESOLINE) 20 MG/ML VIAL IV PRN ×2 (01:24→13:53)
[2022-04-11 02:15] VITALS: BP 133/52
[2022-04-11] MEDS: RT-ALBUTEROL/IPRATROPIUM 3 ML (DUONEB) VIAL INH SCH ×6 (02:15→22:50)
[2022-04-11 03:19] LABS: BASOPHILS % (AUTO) 0 % (0-10); EOSINOPHILS % (AUTO) 0 % (0-10); HEMATOCRIT 36 % (40-54); HEMOGLOBIN 11.3 g/dL (13.3-17.7); LYMPHOCYTES # (AUTO) 0.7 10^3/uL (1.0-4.0); LYMPHOCYTES % (AUTO) 3 % (12-44); MEAN CORPUSCULAR HEMOGLOBIN 31 pg (25-34); MEAN CORPUSCULAR HGB CONC 32 g/dL (32-36); MEAN CORPUSCULAR VOLUME 99 fL (80-99); MEAN PLATELET VOLUME 10.6 fL (9.0-12.2); MONOCYTES # (AUTO) 1.5 10^3/uL (0.0-1.0); MONOCYTES % (AUTO) 6 % (0-12); NEUTROPHILS # (AUTO) 21.3 10^3/uL (1.8-7.8); NEUTROPHILS % (AUTO) 90 % (42-75); PLATELET COUNT 235 10^3/uL (130-400); WHITE BLOOD COUNT 23.7 10^3/uL (4.3-11.0)
[2022-04-11 03:32] LABS: POTASSIUM 4.5 MMOL/L (3.6-5.0)
[2022-04-11 03:33] LABS: CALCIUM 8.7 MG/DL (8.5-10.1)
[2022-04-11 03:37] LABS: CREATININE SERUM 1.91 MG/DL (0.60-1.30); PHOSPHORUS 4.5 MG/DL (2.3-4.7)
[2022-04-11 03:40] LABS: MAGNESIUM 2.5 MG/DL (1.6-2.4)
[2022-04-11] MEDS: POTASSIUM CL 10MEQ/50ML IVPB 50 ML IV SCH (03:51)
[2022-04-11] MEDS: MAGNESIUM 1 GM/100 ML IVPB 100 ML IV SCH (03:51)
[2022-04-11] MEDS: KCL 20 MEQ TAB (K-DUR) PO SCH (03:52)
[2022-04-11] MEDS: inSUlin ASPART (NovoLOG) 1 UNIT/0.01 ML (CHARGE PER UNIT) SC SCH ×5 (03:52→23:02)
[2022-04-11] MEDS: LACTATED RINGERS 1,000 ML IV SCH ×2 (03:55→20:53)
[2022-04-11] MEDS: LABETALOL HCL 20 MG/4 ML VIAL IV PRN ×3 (04:39→20:26)
--- NOTE | 2022-04-11 07:13 | Diagnostic Imaging Report ---
EXAMINATION: Chest 1 view HISTORY: Postintubation. COMPARISON: 04/09/2022 FINDINGS: Right upper extremity peripherally inserted central venous catheter tip terminates in the superior vena cava. No pleural effusion or pneumothorax. No edema or pneumonia. Heart size is normal. IMPRESSION: 1. Clear lungs. Dictated by: Dictated on workstation # [id number]
[2022-04-11 07:29] VITALS: BP 142/59
[2022-04-11] MEDS: FAMOTIDINE 20MG/2ML IV (PEPCID) IVP SCH (08:00)
[2022-04-11] MEDS: cefTRIAXone 1 GM IV (PRE-MIX) 50 ML IV SCH (08:01)
--- NOTE | 2022-04-11 09:36 | Tele-ICU Progress Note ---
Subjective Date Seen by a Provider: Apr 11, 2022 Time Seen by a Provider: 09:36 Subjective/Events-last exam (Tele-ICU Physician , Progress Note ) Available chart/ vitals / labs / Images reviewed Video assessment done using teleICU camera, rest of exam as per RN Discussed with RN , EXAM PER RN Events overnight : hypertensive Afebrile FiO2 - 28 bipap I/O = neg 1400 Drips: Pressors: , hemodynamically stable Consultants: Hospital course: (04/08) 76m admitted for Renal stones and UTI and COPD exac. Failed Bipap and intubated 04/09 AC 14 480 30% +3 , PAP 21 04/10 -EXTUBATED , nocturnal BIPAP A/P Acute resp failure with AECOPD 04/10 -EXTUBATED , nocturnal BIPAP 04/11 - on BIPAP - labored brething , agitated rr 25 with TV 900 - will try off BIPAP and follow with ABG LRTI - sputum with Stenotrophomonas maltophilia -, ususally MULTI-DRUG RESISTANT ORGANISM - discussed with pharmacy - BACTRIM vs [id number] will be added , monitor renal function ( also + ksleb / enterob -was on rocephin) - JUAN ( with mild left hydronephrosis) - Cr improvedwith additional IVF initially - stable now ( off hydration ) - if can not swallow will add d5W and follow Kidney stones - CT 04/08 - 2 mm stone in the left distal ureter with very mild left hydronephrosis. - empiric abx, urology AECOPD- -nebs - SM 60 q 6 (COPD/home O2 4 LPM) Hyperglycemia - with steroids Leukocytosis - rising - possible due to steroids , cxr is clear - follow with PCT , adjusting avx 04/11 for Stenotrophomonas maltophilia H/O stroke and carotid stenosis - on warfarin - INR 2 - follow syncopal episode and tipped over off of the stool - reported without injury - follow Lines : (Central Line Necessity Reviewed) Tian: + OG: + LIS Nutrition: to start 04/10 if not extubated Analgesia: Anxiety/ delirium VTE Prophylaxis: INR 2. 0 Stress Ulcer Prophylaxis: stating Pepcid 04/09 - on steroids IV Plans in collaboration with bedside consultants and IM MDs. 9 discussed 04/[address] Ordaz Discussed with RN to reach out if any questions or concerns A total of 33minutes of critical care time was devoted to this patient today, required to treat and/or prevent further deterioration of critical care condition ( as above) . Sepsis Event Evaluation Height, Weight, BMI Height: 6'1.00" Weight: 235lbs. 0.4oz. 85.802796dh; 31.43 BMI Method:Stated Focused Exam Lactate Level 04/08/22 09:45: Lactic Acid Level 2.27*H 04/08/22 12:05: Lactic Acid Level 3.25*H 04/08/22 14:23: Lactic Acid Level 2.15*H Exam Exam Patient acknowledged, consented, and participated in this virtual visit which was conducted using real time audio/video Vital Signs Date Time Temp Pulse Resp B/P (MAP) Pulse Ox O2 Delivery O2 Flow Rate FiO2 04/11/22 09:00 110 19 134/58 94 NIV Bilevel 28.00 04/11/22 08:00 89 20 117/64 95 NIV Bilevel 28.00 04/11/22 07:54 37.2 04/11/22 07:50 36.5 04/11/22 07:29 95 26 95 28.00 04/11/22 07:00 122 46 146/53 95 NIV Bilevel 28.00 04/11/22 07:00 113 04/11/22 06:00 90 20 130/71 94 NIV Bilevel 28.00 04/11/22 05:00 103 13 139/68 94 NIV Bilevel 28.00 04/11/22 04:00 94 NIV Bilevel 28 04/11/22 04:00 112 25 174/69 95 NIV Bilevel 28.00 04/11/22 04:00 36.9 04/11/22 03:00 96 23 138/51 94 NIV Bilevel 28.00 04/11/22 02:15 92 27 95 28.00 04/11/22 02:00 100 38 160/69 94 NIV Bilevel 28.00 04/11/22 01:00 90 22 131/61 96 NIV Bilevel 28.00 04/11/22 01:00 90 04/11/22 00:00 101 30 157/75 93 NIV Bilevel 28.00 04/11/22 00:00 94 NIV Bilevel 28 04/10/22 23:48 37.3 04/10/22 23:00 105 33 155/71 93 NIV Bilevel 28.00 04/10/22 22:15 35 NIV Bilevel 28.00 04/10/22 22:12 104 25 93 28.00 04/10/22 22:00 98 174/73 94 High Flow N/C 8.00 04/10/22 21:00 106 33 154/73 94 High Flow N/C 8.00 04/10/22 20:00 98 High Flow N/C 8.00 04/10/22 20:00 37.4 04/10/22 20:00 106 177/82 95 High Flow N/C 8.00 04/10/22 19:00 98 30 149/75 96 High Flow N/C 8.00 04/10/22 19:00 98 04/10/22 18:22 96 High Flow N/C 7.00 04/10/22 18:00 97 37 177/79 95 High Flow N/C 8.00 04/10/22 17:18 High Flow N/C 8.00 04/10/22 17:00 90 19 157/68 96 High Flow N/C 10.00 04/10/22 16:00 93 21 136/62 94 Mechanical Ventilator 30.00 04/10/22 15:45 30 04/10/22 15:45 94 Mechanical Ventilator 30 04/10/22 15:30 36.8 04/10/22 15:00 86 24 151/55 94 Mechanical Ventilator 30.00 04/10/22 14:45 87 23 94 30 04/10/22 14:00 85 22 138/67 94 Mechanical Ventilator 30.00 04/10/22 13:00 84 22 160/71 93 Mechanical Ventilator 30.00 04/10/22 12:24 88 04/10/22 12:09 37.0 04/10/22 12:00 84 23 167/70 93 Mechanical Ventilator 30.00 04/10/22 11:34 93 Mechanical Ventilator 30 04/10/22 11:33 30 04/10/22 11:31 82 162/73 04/10/22 11:00 80 21 169/75 93 Mechanical Ventilator 30.00 04/10/22 10:58 80 16 93 30 04/10/22 10:00 82 22 156/67 93 Mechanical Ventilator 30.00 I & O 04/11/22 07:00 Intake Total 1240 ml Output Total 1675 ml Balance -435 ml Height & Weight Height: 6'1.00" Weight: 235lbs. 0.4oz. 85.810517xm; 31.43 BMI Method:Stated General Appearance: Obese, Other (intubated and sedated) HEENT: PERRL/EOMI; No Scleral Icterus (L), No Scleral Icterus (R); Other (ecam obscured by BiPAP mask) Neck: No JVD Respiratory: Decreased Breath Sounds; No Wheezing; Other (on vent) Cardiovascular: Regular Rate, Rhythm, No Murmur Capillary Refill: Less Than 3 Seconds Extremity: Normal Capillary Refill, No Pedal Edema Neurologic/Psychiatric: Other (sedaated, appears comfortable) Skin: Normal Color; No Diaphoresis Results Lab Laboratory Tests 04/10/22 04:05 04/11/22 03:00 Assessment/Plan Assessment/Plan ` ALFONSO MCCABE MD Apr 11, 2022 09:36
--- NOTE | 2022-04-11 09:47 | Progress Note - Urology ---
Progress Note-Urology Progress Notes/Assess & Plan Progress/Assessment & Plan PATIENT EXTUBATED. URINE TIO AND CLEAR. NO PAIN. SOME SPECS STRAINED. CONTINUE SAME Final Diagnosis HEMATURIA (RESOLVED) AND LT URETERAL STONE SHAZIA TAYLOR MD Apr 11, 2022 09:47
--- NOTE | 2022-04-11 10:05 | Progress Note - Hospitalist ---
Subjective HPI/CC On Admission Date Seen by Provider: Apr 11, 2022 Time Seen by Provider: 09:59 Patient 76-year-old male with past medical history of COPD with baseline 4 L/min oxygen requirement, CVA, hyperlipidemia who presented to the emergency department due to abdominal pain. He had imaging that revealed multiple kidney stones and they were prepping for discharge as his pain was controlled but he became hypotensive. In review of labs he was found to have a leukocytosis of 18,000 and decision was made to admit for further management. I was called to bedside shortly after arrival to the ICU due to decline in r espiratory status. He is unable to provide me much history and is pulling at his BiPAP. His states that he has known COPD and wears 4 L of oxygen per minute. She states he would be agreeable with intubation if needed. He is unable to provide me any history due to his clinical condition. Subjective/Events-last exam Pt extubated yesterday. Currently on precedex and somewhat sedate. He does nod his head when asked if he is glad to have the tube out. Otherwise did not p articipate much. Focused Exam Lactate Level 04/08/22 12:05: Lactic Acid Level 3.25*H 04/08/22 14:23: Lactic Acid Level 2.15*H Objective Exam Vital Signs Vital Signs Date Time Temp Pulse Resp B/P (MAP) Pulse Ox O2 Delivery O2 Flow Rate FiO2 04/11/22 09:53 95 Vapotherm 30.00 40 04/11/22 09:00 110 19 134/58 04/11/22 07:54 37.2 Capillary Refill : Less Than 3 Seconds General Appearance: Obese, Other (on BiPAP, somewhat sedate) Respiratory: Decreased Breath Sounds; No Wheezing; Other (on BiPAP) Cardiovascular: Regular Rate, Rhythm, No Murmur Gastrointestinal: Normal Bowel Sounds, Non Tender, Soft Extremity: Pedal Edema, Swelling (in hands) Neurologic/Psychiatric: Alert (drowsy with sedation but opens eyes and answered a question) Skin: Normal Color, Warm/Dry Results/Procedures Lab Laboratory Tests 04/11/22 03:00 Patient resulted labs reviewed. Imaging: Reviewed Imaging Report Assessment/Plan Assessment and Plan Assess & Plan/Chief Complaint Acute on chronic hypoxic respiratory failure COPD with acute exacerbation Continue steroids Extubated 04/10 TeleICU consulted, appreciate recs MAT Protocol Currently on BiPAP PT/OT Sputum culture with klebsiella and Stenotrophomonas maltophilia- discussed with pharmacy and will start Bactrim Sepsis- severe POA Nephrolithiais JUAN Continue on abx, urine culture NGTD despite moderate bacteria on UA Urology consulted, appreciate recs Hold anticoagulation, keep vogt in per his recs Creatinine stable but BUN increased today- trend UOP adequate HTN BP up, hydralazine prn ordered HLD Continue home meds when able to PO h/o CVA Chronic anticoagulation No deficits on Warfarin, INR 2.1 CT Head negative for acute findings DVT ppx: Hold anticoagulation for possible urological intervention Critical Care Critically Ill Patient Diagnosis/Problems Diagnosis/Problems (1) Acute respiratory failure Qualifiers: Respiratory failure complication: hypoxia Qualified Codes: J96.01 - Acute respiratory failure with hypoxia (2) Essential (primary) hypertension Status: Chronic (3) HLD (hyperlipidemia) Status: Chronic Qualifiers: Hyperlipidemia type: mixed hyperlipidemia Qualified Codes: E78.2 - Mixed hyperlipidemia (4) COPD with acute exacerbation Status: Acute (5) UTI (urinary tract infection) Status: Acute Qualifiers: Urinary tract infection type: acute cystitis Hematuria presence: with hematuria Qualified Codes: N30.01 - Acute cystitis with hematuria (6) Sepsis Status: Acute Qualifiers: Sepsis type: sepsis due to unspecified organism Sepsis acute organ dysfunction status: with acute organ dysfunction Severe sepsis acute organ dysfunction type: acute renal failure Acute renal failure type: unspecified Severe sepsis shock status: unspecified Qualified Codes: A41.9 - Sepsis, unspecified organism; R65.20 - Severe sepsis without septic shock; N17.9 - Acute kidney failure, unspecified (7) Mass of left thigh Status: Acute (8) Ureteral calculus, left Status: Acute MARK LAZARO MD Apr 11, 2022 10:05
[2022-04-11] MEDS ORDERED: SULFAMETHOXAZOLE/TRIMETHO SUSP 10 ML (BACTRIM) UDC PO ONE (10:15)
[2022-04-11] MEDS ORDERED: SULFAMETHOXAZOLE/TRIMETHO SUSP 10 ML (BACTRIM) UDC PO NR (10:45)
[2022-04-11] MEDS: PROPOFOL DRIP (ICU) 100 ML IV SCH ×2 (10:45→18:25)
--- NOTE | 2022-04-11 11:38 | Physical Therapy Evaluation ---
PT Evaluation-General Medical Diagnosis Admission Date Apr 08, 2022 at 11:47 Medical Diagnosis: Acute on chronic hypoxic respiratory failure Onset Date: Apr 08, 2022 Therapy Diagnosis Therapy Diagnosis: impaired mobility Height/Weight Height (Feet): 6 Height (Inches): 1.00 Weight (Pounds): 235 Weight (Ounces): 0.4 Precautions Precautions/Isolations: Fall Prevention, Standard Precautions, Pressure Ulcer Referral Physician: Sushma Reason for Referral: Evaluation/Treatment Medical History Pertinent Medical History: Arthritis, COPD, CVA, HTN, Smoking Additional Medical History Past Medical History Surgeries: Eye Surgery, Vascular Surgery (Right carotid endarterectomy) Sleep Apnea, COPD (Uses maintenance oxygen at 4 L/min), Emphysema Currently Using CPAP: Yes Currently Using BIPAP: No High Cholesterol, Hypertension, Peripheral Vascular, Syncope Stroke Sexually Transmitted Disease: No HIV/AIDS: No Benign Prostatic Hyperpl Arthritis Cataract Loss of Vision: Denies Hearing Impairment: Denies Anxiety Adverse Reaction/Blood Tranf: No Reviewed History: Yes Social History Current Living Status: Spouse Entry Into Home: Stairs With Railing PT Steps Into Home: 4 Prior Prior Level of Function SCALE: Activities may be completed with or without assistive devices. 4-Qpwqnfvpay-kwuzqay completes the activity by him/herself with no assistance from a helper. 5-Set-up or Clean-up Assistance-helper sets up or cleans up; patient completes activity. [place] assists only prior to or following the activity. 4-Supervision or Touching Assistance-helper provides verbal cues and/or touching/steadying and/or contact guard assistance as patient completes activity. Assistance may be provided throughout the activity or intermittently. 3-Partial/Moderate Assistance-helper does LESS THAN HALF the effort. [place] lifts, holds or supports trunk or limbs, but provides less than half the effort. 2-Substantial/Maximal Assistance-helper does MORE THAN HALF the effort. [place] lifts or holds trunk or limbs and provides more than half the effort. 5-Ootukjowb-yfhxnb does ALL the effort. Patient does none of the effort to complete the activity. Or, the assistance of 2 or more helpers is required for the patient to complete the activity. If activity was not attempted, code reason: 7-Patient Refused. 9-Not Applicable-not attempted and the patient did not perform the activity before the current illness, exacerbation or injury. 10-Not Attempted due to Environmental Limitations-(lack of equipment, weather restraints, etc.). 88-Not Attempted due to Medical Conditions or Safety Concerns. Bed Mobility: 6 Transfers (B,C,W/C): 6 Gait: 6 Stairs: 6 Indoor Mobility (Ambulation): Independent Stairs: Independent Prior Devices Use: Walker PT Evaluation-Current Subjective Patient in bed pre tx, agrees to PT, has pain in left wrist where nurse is currently getting blood from him. Patient is confused, was just extubated yesterday. Pt/Family Goals none stated Objective Patient Orientation: Person, Confused, Mumbles Attachments: Oxygen, Tian Catheter, IV ROM/Strength ROM Lower Extremities WNL Integumentary/Posture Integumentary BLE swelling Treatment BLE stretching and ROM. Patient could participate just a little bit with heel slides (x10) and SLR (x10). Assessment/Needs Patient in bed post tx with nurse call, phone, tray, all needs met, in room. Rehab Potential: Guarded PT Skilled Nursing Goals Skilled Nursing Goals PT Skilled Nursing Goals Time Frame: Apr 18, 2022 Roll Left & Right (QC): 3 Sit to Lying (QC): 3 Lying-Sitting on Side/Bed(QC): 3 Sit to Stand (QC): 3 Chair/Ypm-ag-Vjvtz Xfer(QC): 3 PT Plan Problem List Problem List: Activity Tolerance, Functional Strength, Safety, Balance, Gait, Transfer, Bed Mobility, ROM Treatment/Plan Treatment Plan: Continue Plan of Care Treatment Plan: Bed Mobility, Education, Functional Activity Jeferson, Functional Strength, Gait, Safety, Therapeutic Exercise, Transfers Treatment Duration: Apr 18, 2022 Frequency: 6 times per week Estimated Hrs Per Day: .25 hour per day Patient and/or Family Agrees t: Yes Safety Risks/Education Patient Education: Correct Positioning, Safety Issues Teaching Recipient: Patient Teaching Methods: Demonstration, Discussion Response to Teaching: Reinforcement Needed Discharge Recommendations Plan Patient will perform bed mobility and transfer training, balance and endurance training, functional strengthening, stair training, gait training, and education, to improve functional mobility and independence at home. Therapy Discharge Recommendati: 24 Hour Supervision, Post Acute PT Time/GCodes Time In: 1115 Time Out: 1130 Total Billed Treatment Time: 15 Total Billed Treatment 1 visit LARRY Fish' RILEY ADAM PT Apr 11, 2022 11:38
--- NOTE | 2022-04-11 12:43 | CONSULTATION REPORT ---
DATE OF SERVICE: 04/10/2022 ATTENDING PHYSICIAN: Dr. Ordaz. SUMMARY: After reviewing the patient's record, after interviewing him being on the respirator and because of respiratory failure, was found to have a 2 mm stone in the left distal ureter with very mild obstruction and another very small stone, nonobstructing in the left renal kidney and an exophytic benign left renal cyst. He has not had much complained about the stone. He also has some gross hematuria. His anticoagulation was held. Hematuria is getting better. IMPRESSION: 1. Gross hematuria, clearing. 2. Left distal ureteral stone, passable. 3. Left renal stone. 4. Left renal cyst. PLAN: Continue observation, hydration, strain all urine and manage accordingly. CC: Dr. Ordaz - requested, unable to deliver. Job ID: [id number] DocumentID: [id number] Dictated Date: 04/11/2022 09:45:40 Gasoline Attendant Date: 04/11/2022 12:43:08 Dictated By: SHAZIA TAYLOR MD
[2022-04-11] MEDS: D5W 1000 ML IV SOLUTION 1,000 ML IV SCH (13:36)
--- NOTE | 2022-04-11 13:39 | Occupational Therapy Eval ---
OT Evaluation-General/PLF Medical Diagnosis Admission Date Apr 08, 2022 at 11:47 Medical Diagnosis: Acute on chronic hypoxic respiratory failure Onset Date: Apr 08, 2022 Therapy Diagnosis Therapy Diagnosis: decreased ADL status and weakness Height/Weight Height (Feet): 6 Height (Inches): 1.00 Weight (Pounds): 235 Weight (Ounces): 0.4 Precautions Precautions/Isolations: Droplet Isolation, Fall Prevention, Standard Precautions, Pressure Ulcer Referral Physician: Sushma Referral Reason: Evaluation/Treatment Medical History Pertinent Medical History: Arthritis, COPD, CVA, HTN, Smoking Additional Medical History Eye Surgery, Vascular Surgery (Right carotid endarterectomy), Sleep Apnea, COPD (Uses maintenance oxygen at 4 L/min), Emphysema, High Cholesterol, Hypertension, Peripheral Vascular, Syncope, Stroke, Benign Prostatic Hyperpl, Arthritis, Cataract, Current History ED due to abdominal pain, imaging revealed multiple kidney stones. He was prepping for discharge, but became hypotensive. Admitted for further management of labs, then had a decline in respiratory status. Social History Current Living Status: Spouse Entry Into Home: Stairs With Railing Steps Into Home: 4 ADL-Prior Level of Function SCALE: Activities may be completed with or without assistive devices. 5-Lycvbpdzan-eoeexjj completes the activity by him/herself with no assistance from a helper. 5-Set-up or Clean-up Assistance-helper sets up or cleans up; patient completes activity. [place] assists only prior to or following the activity. 4-Supervision or Touching Assistance-helper provides verbal cues and/or touching/steadying and/or contact guard assistance as patient completes activity . Assistance may be provided throughout the activity or intermittently. 3-Partial/Moderate Assistance-helper does LESS THAN HALF the effort. Brock lifts, holds or supports trunk or limbs, but provides less than half the effort. 2-Substantial/Maximal Assistance-helper does MORE THAN HALF the effort. [place] lifts or holds trunk or limbs and provides more than half the effort. 6-Xuetsvotc-ckpscm does ALL the effort. Patient does none of the effort to complete the activity. Or, the assistance of 2 or more helpers is required for the patient to complete the activity. If activity was not attempted, code reason: 7-Patient Refused. 9-Not Applicable-not attempted and the patient did not perform the activity before the current illness, exacerbation or injury. 10-Not Attempted due to Environmental Limitations-(lack of equipment, weather restraints, etc.). 88-Not Attempted due to Medical Conditions or Safety Concerns. ADL PLOF Comments Pt lives at home with spouse. reports that he was IND in ADLs and IADLs prior to incident. They have a 4WW at home, but they have not had to use it before. Self Care: Independent Functional Cognition: Independent OT Current Status Subjective Pt reclined in bed prior to OT eval/tx. Pt confused and only answered with a "yep" or "no" but agreeable to tx. Mental Status/Objective Patient Orientation: Person, Confused Attachments: Tian Catheter, IV, Oxygen (vapotherm), Telemetry Current Upper Extremity ROM decreased bilaterally. Active finger flexion/extension but no shoulder or elbow movements noted. Pt resistive to PROM. BUE PROM shoulder flexion to approx 80 degrees. Upper Extremity Coordination decreased bilaterally due to decreased ROM Upper Extremity Strength grossly 2-/5 BUEs ADL-Treatment Eating (QC): 88 Shower/Bathe Self (QC): 88 Lower Body Dressing (QC): 1 (per clinical judgment, pt would require total assist) On/Off Footwear (QC): 1 (per clinical judgment, pt would require total assist) Toileting Hygiene (QC): 1 (per clinical judgment, pt would require total assist) Other Treatments Pt in bed, at bedside. Pt's provided information about PLOF. UE screen attempted, but no active movement noted in shoulders/elbows. Pt able to squeeze OT's fingers, poor strength. PROM performed x5 reps shoulder flexion, pt resistive to movements. Pt then performed 3-5 AROM finger flexion/extension bilaterally, requiring step by step verbal/tactile cues. Pt positioned to comfort with cool wash cloth and fan, all needs met, call light in reach. Education OT Patient Education: Correct positioning, Energy conservation, Exercise program, Modified ADL techniques, Progress toward Goal/Update tx plan, Purpose of tx/functional activities, Rehab process Teaching Recipient: Patient, Family Teaching Methods: Discussion Response to Teaching: Verbalize Understanding OT Penitentiary Goals Penitentiary Goals Time Frame: Apr 27, 2022 Eating (QC): 3 Oral Hygiene (QC): 3 Toileting Hygiene (QC): 3 Shower/Bathe Self (QC): 3 Upper Body Dressing (QC): 3 Lower Body Dressing (QC): 3 On/Off Footwear (QC): 2 Additional Goals: 1-Demonstrate ADL Tasks, 2-Verbalize Understanding, 3-ImproveStrength/Jeferson 1=Demonstrate adherence to instructed precautions during ADL tasks. 2=Patient will verbalize/demonstrate understanding of assistive devices/modifications for ADL. 3=Patient will improve strength/tolerance for activity to enable patient to per form ADL's. OT Education/Plan Problem List/Assessment Assessment: Decreased Activ Tolerance, Decreased Safety Aware, Decreased UE Strength, Dependent Transfers, Impaired Bed Mobility, Impaired Cognition, Impair ed Coordination, Impaired Funct Balance, Impaired I ADL's, Impaired Self-Care Skills, Restricted Funct UE ROM Discharge Recommendations Plan/Recommendations: Continue POC Therapy Discharge Recommendati: Post Acute OT Comment Recommendations to be determined based on pt's progress Treatment Plan/Plan of Care Patient would benefit from OT for education, treatment and training to promote independence in ADL's, mobility, safety and/or upper extremity function for ADL's. Plan of Care: ADL Retraining, Caregiver Training, Cognitive Retraining, Functional Mobility, UE Funct Exercise/Act, UE Neuromus Re-Ed/Coord Treatment Duration: Apr 27, 2022 Frequency: 3 times per week (3-5 times per week) Agreement: Yes Rehab Potential: Guarded Time/GCodes Start Time: 13:08 Stop Time: 13:21 Total Time Billed (hr/min): 13 Billed Treatment Time 1, LAMINE GERARDO OT Apr 11, 2022 13:39
--- NOTE | 2022-04-11 13:52 | ST Dysphagia Evaluation ---
Speech Evaluation-General Medical Diagnosis Acute on Chronic Hypoxic Respiratory Failure Onset Date: Apr 08, 2022 Therapy Diagnosis Therapy Diagnosis: Oropharyngeal Dysphagia Precautions Precautions: Fall, Aspiration Precautions/Isolations: Aspiration, Droplet Isolation, Fall Prevention Referral Referring Physician: Dr. Ordaz Reason for Referral: Evaluation/Treatment Medical History Pertinent Medical History: Arthritis, COPD, CVA, HTN, Smoking Current History The patient is a 76 year-old male with a past medical history of COPD (baseline 4 L/min oxygen requirement), CVA, and hyperlipidemia who presented to the emergency department due to abdominal pain when he became hypotensive. The patient displayed respiratory distress and was intubated. The patient was in tubated from 04/08/22 to 04/10/22. 04/11/22: IMPRESSION: 1. Clear lungs. Reviewed History: Yes Social History Current Living Status: Spouse Speech PLF/Current-Dysphagia Prior Level of Function Prior level of intake consistency was not found during a chart review by the clinician. The patient was unable to provide the information following the clinician's questions. Subjective The patient was seated upright in bed, awake upon entrance to the patient's room by the clinician. The patient's is present at bedside. The patient makes eyes contact with the clinician following a verbal greeting, however, does not provide a verbal greeting in return. The patient is receiving supplemental oxygen via high flow nasal cannula at a rate of 30 lpm at 40% O2. The patient's SpO2% is 95% prior to, throughout, and following PO bolus trials by the clinician. Per patient's , "He's still confused." Cognitive Status Patient Orientation: Confused Oral Motor Skills Dentition: Natural Ability to Follow Directions: Poor Oral Expression Ability: Moderate Impairment Voice Voice Phonatory-Based Quality: Harsh Voice Pitch: Normal Voice Loudness: Normal Face Facial Symmetry: Symmetrical The patient does not follow verbal instructions or commands to complete an oral mechanism prior to P.O. bolus administration. Oral-Facial Assessment Oral-Facial Dentition: Normal Labial Seal Description: Normal Volitional Dry Swallow: No Voluntary Cough: No Can Clear Throat Volitionally: No Productive Cough: No Productive Throat Clear: No Dysphagia Evaluation Consistencies Presented: Thin Liquid (Ice chip, teaspoon of thin liquid.), Pureed Oral Phase: Reduced Oral Transit Following tactile stimulation of the spoon on the patient's lower lip and consistent verbal encouragement and prompting, the patient appropriately accepted the ice chip and teaspoon of water from the clinician. The patient minimally manipulates the ice chip in the oral cavity, however, does elicit a pharyngeal swallow. The patient intermittently orally holds the bolus of puree, returning to an eyes closed/sleeping position until continuous verbal prompts from the clinician return the patient to improved alertness posterior transfer of bolus material occurs. Pharyngeal Phase: Delayed Swallow The patient does not display s/s of suspected aspiration with five of five ice chips. The patient demonstrated an immediate, rigorous cough following three of three teaspoons of thin liquid. The patient does not display s/s of suspected aspiration with multiple boluses of puree, however, poor alertness and the necessity for consistent verbal prompting is required from the clinician to reduce oral holding behavior and increased alertness/safety. Due to the patient's poor alertness level and the clinician's concern for the patient's safety, oral trials were ended. Dietary Recommendations: NPO Liquid Recommendations: NPO Recommendations: - NPO. - Frequent, excellent, and thorough oral care to reduce the transfer of oral bacteria to the lungs should aspiration of secretions occur. - Following oral care, the RN may provide ice chips sparingly for oral moisture and swallowing rehabilitation. - Essential medication may be crushed and provided with puree. - Speech pathology to continue ongoing oropharyngeal swallowing assessment as the patient's confusion reduces and continued participation occurs. The patient continued to attempt to remove himself from his bed throughout the evaluation stating, "I have to get up. I need to get out of here." Support and encouragement were provided from the clinician and reminders to the patient regarding his safety. The results and recommendations were provided to the patient, the patient's , and the RN. The patient's and RN verbalized comprehension of the material. Dysphagia Evaluation Summary The patient demonstrated suspected oropharyngeal dysphagia characterized by decreased lingual coordination, a delayed onset of the pharyngeal swallow, and poor airway protection in the presence of bolus material. The patient's suspected oropharyngeal dysphagia was negatively impacted by the patient's high level of confusion. Speech Short Term Goals Short Term Goals Short Term Goals 1. The patient, staff, and family will follow swallowing safety strategies with 90% accuracy and mild clinician verbal cueing. Time Frame-STG: Five Days. Speech Fleece Tier Goals Fleece Tier Goals 1. The patient will tolerate the least restrictive diet consistency without s/s of suspected aspiration. Speech-Plan Treatment Plan Speech Therapy Treatment Plan: Continue Plan of Care Treatment Duration: Apr 25, 2022 Frequency: 3 times per week (Three to five times per week.) Estimated Hrs Per Day: .25 hour per day Rehab Potential: Guarded Pt/Family Agrees to Plan: Yes Safety Risks/Education Teaching Recipient: Patient, Family Teaching Methods: Discussion Response to Teaching: Reinforcement Needed Education Topics Provided: Results, Recommendations, Plan of Care Time Speech Therapy Time In: 11:57 Speech Therapy Time Out: 12:15 Total Billed Time: 18 Billed Treatment Time 1, SUE SANCHEZ ELIZABETH ST Apr 11, 2022 13:52
[2022-04-11] MEDS: morphine INJ 4 MG/ML 1 ML (VIAL/SYRINGE) IV PRN ×2 (16:48→22:55)
[2022-04-11] MEDS: SULFAMETHOXAZOLE/TRIMETHO SUSP 10 ML (BACTRIM) UDC PO SCH (20:14)
[2022-04-11] MEDS ORDERED: SULFAMETHOXAZOLE/TRIMETHO SUSP 10 ML (BACTRIM) UDC PO SCH (21:00)
[2022-04-11 22:50] VITALS: BP 142/59
[2022-04-12] MEDS: RT-ALBUTEROL/IPRATROPIUM 3 ML (DUONEB) VIAL INH SCH ×6 (02:47→22:44)
[2022-04-12 02:48] VITALS: BP 180/86
[2022-04-12] MEDS: PROPOFOL DRIP (ICU) 100 ML IV SCH ×4 (02:53→23:29)
[2022-04-12 03:39] LABS: BASOPHILS % (AUTO) 0 % (0-10); EOSINOPHILS % (AUTO) 0 % (0-10); HEMATOCRIT 34 % (40-54); HEMOGLOBIN 10.8 g/dL (13.3-17.7); LYMPHOCYTES # (AUTO) 0.5 10^3/uL (1.0-4.0); LYMPHOCYTES % (AUTO) 3 % (12-44); MEAN CORPUSCULAR HEMOGLOBIN 32 pg (25-34); MEAN CORPUSCULAR HGB CONC 32 g/dL (32-36); MEAN CORPUSCULAR VOLUME 100 fL (80-99); MEAN PLATELET VOLUME 10.5 fL (9.0-12.2); MONOCYTES # (AUTO) 0.7 10^3/uL (0.0-1.0); MONOCYTES % (AUTO) 4 % (0-12); NEUTROPHILS # (AUTO) 15.1 10^3/uL (1.8-7.8); NEUTROPHILS % (AUTO) 91 % (42-75); PLATELET COUNT 191 10^3/uL (130-400); WHITE BLOOD COUNT 16.5 10^3/uL (4.3-11.0)
[2022-04-12 03:53] LABS: INR 1.3 (0.8-1.4); PROTHROMBIN TIME PATIENT 16.9 SEC (12.2-14.7)
[2022-04-12 03:56] LABS: ANISOCYTOSIS SLIGHT; BAND NEUTROPHILS 0 %; BASOPHILS % (MANUAL) 0 %; EOSINOPHILS % (MANUAL) 0 %; LYMPHOCYTES % (MANUAL) 3 %; MONOCYTES % (MANUAL) 4 %; NEUTROPHILS % (MANUAL) 92 %; POTASSIUM 4.5 MMOL/L (3.6-5.0); REACTIVE LYMPHOCYTES 1 %
[2022-04-12 03:57] LABS: CALCIUM 8.4 MG/DL (8.5-10.1)
[2022-04-12 04:01] LABS: PHOSPHORUS 4.9 MG/DL (2.3-4.7)
[2022-04-12 04:02] LABS: CREATININE SERUM 1.57 MG/DL (0.60-1.30)
[2022-04-12 04:04] LABS: MAGNESIUM 3.1 MG/DL (1.6-2.4)
[2022-04-12] MEDS: D5W 1000 ML IV SOLUTION 1,000 ML IV SCH ×2 (04:05→16:44)
[2022-04-12] MEDS: POTASSIUM CL 10MEQ/50ML IVPB 50 ML IV SCH (04:09)
[2022-04-12] MEDS: KCL 20 MEQ TAB (K-DUR) PO SCH (04:10)
[2022-04-12] MEDS: MAGNESIUM 1 GM/100 ML IVPB 100 ML IV SCH (04:10)
[2022-04-12] MEDS: inSUlin ASPART (NovoLOG) 1 UNIT/0.01 ML (CHARGE PER UNIT) SC SCH ×4 (06:07→23:48)
[2022-04-12] MEDS: methylPREDNISolone 125 MG (Solu-MEDROL) VIAL IVP SCH ×4 (06:07→23:48)
[2022-04-12] MEDS: cefTRIAXone 1 GM IV (PRE-MIX) 50 ML IV SCH (08:33)
[2022-04-12] MEDS: FAMOTIDINE 20MG/2ML IV (PEPCID) IVP SCH (08:33)
[2022-04-12] MEDS: SULFAMETHOXAZOLE/TRIMETHO SUSP 10 ML (BACTRIM) UDC PO SCH ×2 (08:33→22:26)
[2022-04-12] MEDS: morphine INJ 4 MG/ML 1 ML (VIAL/SYRINGE) IV PRN ×2 (08:33→22:26)
--- NOTE | 2022-04-12 09:00 | Progress Note - Hospitalist ---
Subjective HPI/CC On Admission Date Seen by Provider: Apr 12, 2022 Time Seen by Provider: 08:55 Patient 76-year-old male with past medical history of COPD with baseline 4 L/min oxygen requirement, CVA, hyperlipidemia who presented to the emergency department due to abdominal pain. He had imaging that revealed multiple kidney stones and they were prepping for discharge as his pain was controlled but he became hypotensive. In review of labs he was found to have a leukocytosis of 18,000 and decision was made to admit for further management. I was called to bedside shortly after arrival to the ICU due to decline in r espiratory status. He is unable to provide me much history and is pulling at his BiPAP. His states that he has known COPD and wears 4 L of oxygen per minute. She states he would be agreeable with intubation if needed. He is unable to provide me any history due to his clinical condition. Subjective/Events-last exam Pt reports feeling better today. On Vapotherm 30lpm at 40%. He is asking to go home. We discuss how this is not possibleon this level of oxygen. He states he has a ventilator in his car so he's not worried. I again reiterated that he will be here likely through the weekend to work on oxygen need and he then is agreeable though disappointed. Objective Exam Vital Signs Vital Signs Date Time Temp Pulse Resp B/P (MAP) Pulse Ox O2 Delivery O2 Flow Rate FiO2 04/12/22 08:00 98 NIV CPAP 30.00 40 04/12/22 08:00 88 10 192/92 04/12/22 07:53 36.0 Capillary Refill : Less Than 3 Seconds General Appearance: No Apparent Distress Respiratory: Wheezing, Other (on Vapotherm) Cardiovascular: Regular Rate, Rhythm, No Murmur Gastrointestinal: Normal Bowel Sounds, Non Tender, Soft Neurologic/Psychiatric: Alert, Oriented x3 Results/Procedures Lab Laboratory Tests 04/12/22 03:30 Patient resulted labs reviewed. Imaging: Reviewed Imaging Report Assessment/Plan Assessment and Plan Assess & Plan/Chief Complaint Acute on chronic hypoxic respiratory failure COPD with acute exacerbation Continue steroids Extubated 04/10 TeleICU consulted, appreciate recs MAT Protocol Currently on Vapotherm-wean as able PT/OT Sputum culture with klebsiella and Stenotrophomonas maltophilia- discussed with pharmacy and continue Bactrim Sepsis- severe POA Nephrolithiais JUAN Continue on abx, urine culture NGTD despite moderate bacteria on UA Urology consulted, appreciate recs Hold anticoagulation, keep vogt in per his recs Creatinine improved further today UOP improving HTN BP up, hydralazine prn ordered HLD Continue home meds when able to PO h/o CVA Chronic anticoagulation No deficits on Warfarin, INR 1.3 CT Head negative for acute findings DVT ppx: Lovenox Critical Care Critically Ill Patient Diagnosis/Problems Diagnosis/Problems (1) Acute respiratory failure Qualifiers: Respiratory failure complication: hypoxia Qualified Codes: J96.01 - Acute respiratory failure with hypoxia (2) Essential (primary) hypertension Status: Chronic (3) HLD (hyperlipidemia) Status: Chronic Qualifiers: Hyperlipidemia type: mixed hyperlipidemia Qualified Codes: E78.2 - Mixed hyperlipidemia (4) COPD with acute exacerbation Status: Acute (5) UTI (urinary tract infection) Status: Acute Qualifiers: Urinary tract infection type: acute cystitis Hematuria presence: with hematuria Qualified Codes: N30.01 - Acute cystitis with hematuria (6) Sepsis Status: Acute Qualifiers: Sepsis type: sepsis due to unspecified organism Sepsis acute organ dysfunction status: with acute organ dysfunction Severe sepsis acute organ dysfunction type: acute renal failure Acute renal failure type: unspecified Severe sepsis shock status: unspecified Qualified Codes: A41.9 - Sepsis, unspecified organism; R65.20 - Severe sepsis without septic shock; N17.9 - Acute kidney failure, unspecified (7) Mass of left thigh Status: Acute (8) Ureteral calculus, left Status: Acute MARK LAZARO MD Apr 12, 2022 09:00
--- NOTE | 2022-04-12 09:19 | Tele-ICU Progress Note ---
Subjective Date Seen by a Provider: Apr 12, 2022 Time Seen by a Provider: 09:19 Subjective/Events-last exam (Tele-ICU Physician , Progress Note ) Available chart/ vitals / labs / Images reviewed Video assessment done using teleICU camera, rest of exam as per RN Discussed with RN , EXAM PER RN Events overnight : hypertensive Afebrile FiO2 - 28 bipap I/O = neg 1400 Drips: d5 w 70 Pressors: , hemodynamically stable Consultants: Hospital course: (04/08) 76m admitted for Renal stones and UTI and COPD exac. Failed Bipap and intubated 04/09 AC 14 480 30% +3 , PAP 21 04/10 -EXTUBATED , nocturnal BIPAP 04/12-on VT 40 L 40 % , BIPAP at night A/P Acute resp failure with AECOPD 04/10 -EXTUBATED , nocturnal BIPAP 04/11 - on BIPAP - labored brething , agitated rr 25 with TV 900 04/12 -on VT 40 L 40 % , BIPAP at night -CPM LRTI - sputum with Stenotrophomonas maltophilia -, ususally MULTI-DRUG RESISTANT ORGANISM -started - BACTRIM 04/11 monitor renal function ( also + ksleb / enterob -was on rocephin) - JUAN ( with mild left hydronephrosis) - Cr improved - if can not swallow will add d5W and follow Kidney stones - CT 04/08 - 2 mm stone in the left distal ureter with very mild left hydronephrosis. - empiric abx, urology AECOPD- -nebs - SM 60 q 6 (COPD/home O2 4 LPM) Hyperglycemia - with steroids Leukocytosis - improved - possible due to steroids , adjusting avx 04/11 for Stenotrophomonas maltophilia H/O stroke and carotid stenosis - on warfarin - INR 1.3 - on charly 40 now syncopal episode and tipped over off of the stool - reported without injury - follow Lines : (Central Line Necessity Reviewed) Tian: + OG: + LIS Nutrition: to start 04/10 if not extubated Analgesia: Anxiety/ delirium VTE Prophylaxis: charly 40 Stress Ulcer Prophylaxis: stating Pepcid 04/09 - on steroids IV Plans in collaboration with bedside consultants and IM MDs. 9 discussed 04/[address] Ordaz Discussed with RN to reach out if any questions or concerns A total of 32 minutes of critical care time was devoted to this patient today, required to treat and/or prevent further deterioration of critical care condition ( as above) . Sepsis Event Evaluation Height, Weight, BMI Height: 6'1.00" Weight: 235lbs. 0.4oz. 85.623865iy; 31.46 BMI Method:Stated Exam Exam Patient acknowledged, consented, and participated in this virtual visit which was conducted using real time audio/video Vital Signs Date Time Temp Pulse Resp B/P (MAP) Pulse Ox O2 Delivery O2 Flow Rate FiO2 04/12/22 08:00 98 NIV CPAP 30.00 40 04/12/22 08:00 88 10 192/92 98 NIV Bilevel 35.00 04/12/22 07:53 36.0 04/12/22 07:36 97 Vapotherm 30.00 40 04/12/22 07:00 84 10 155/84 98 NIV Bilevel 35.00 04/12/22 07:00 86 04/12/22 06:00 80 16 153/76 98 NIV Bilevel 35.00 04/12/22 05:00 135 15 161/80 97 NIV Bilevel 35.00 04/12/22 04:00 98 NIV CPAP 30.00 40 04/12/22 04:00 80 15 146/70 97 NIV Bilevel 35.00 04/12/22 03:00 79 15 151/78 97 NIV Bilevel 35.00 04/12/22 02:53 129/74 04/12/22 02:48 82 18 97 35.00 04/12/22 02:00 79 18 148/80 97 NIV Bilevel 35.00 04/12/22 01:00 80 04/12/22 01:00 80 18 145/71 97 NIV Bilevel 35.00 04/12/22 00:00 80 19 118/68 96 NIV Bilevel 35.00 04/11/22 23:59 96 Vapotherm 30.00 40 04/11/22 23:00 112 153/63 96 NIV Bilevel 35.00 04/11/22 22:53 NIV Bilevel 35.00 04/11/22 22:50 108 34 94 35.00 04/11/22 22:00 97 196/86 94 Vapotherm 30.00 40.00 04/11/22 21:00 91 28 161/88 95 Vapotherm 30.00 40.00 04/11/22 20:00 96 Vapotherm 30.00 40 04/11/22 20:00 97 191/101 95 Vapotherm 30.00 40.00 04/11/22 19:43 110 04/11/22 19:00 98 176/87 94 Vapotherm 30.00 40.00 04/11/22 18:45 94 Vapotherm 30.00 40 04/11/22 18:45 90 25 157/88 94 Vapotherm 30.00 40.00 04/11/22 18:30 105 30 156/60 95 Vapotherm 30.00 40.00 04/11/22 18:15 99 26 153/75 95 Vapotherm 30.00 40.00 04/11/22 18:00 99 28 154/83 95 Vapotherm 30.00 40.00 04/11/22 17:45 90 26 150/101 95 Vapotherm 30.00 40.00 04/11/22 17:30 106 17 139/71 94 Vapotherm 30.00 40.00 04/11/22 17:15 123 26 163/76 95 Vapotherm 30.00 40.00 04/11/22 17:00 116 28 169/65 95 Vapotherm 30.00 40.00 04/11/22 16:20 36.9 04/11/22 16:19 95 Vapotherm 30.00 40 04/11/22 16:02 102 23 144/55 95 Vapotherm 30.00 40.00 04/11/22 15:05 95 Vapotherm 30.00 40 04/11/22 15:00 97 17 154/70 95 Vapotherm 30.00 40.00 04/11/22 14:00 103 31 115/65 95 Vapotherm 30.00 40.00 04/11/22 13:00 98 16 141/66 95 Vapotherm 30.00 40.00 04/11/22 12:30 113 04/11/22 12:15 95 Vapotherm 30.00 40 04/11/22 12:00 105 18 160/74 94 Vapotherm 30.00 40.00 04/11/22 11:28 37.2 04/11/22 11:00 97 26 126/68 94 Vapotherm 30.00 40.00 04/11/22 10:00 97 23 137/62 95 NIV Bilevel 28.00 04/11/22 09:53 95 Vapotherm 30.00 40 I & O 04/12/22 07:00 Intake Total 1050 ml Output Total 2400 ml Balance -1350 ml Height & Weight Height: 6'1.00" Weight: 235lbs. 0.4oz. 85.209405mi; 31.46 BMI Method:Stated General Appearance: No Apparent Distress HEENT: PERRL/EOMI; No Scleral Icterus (L), No Scleral Icterus (R); Other (ecam obscured by BiPAP mask) Neck: No JVD Respiratory: Wheezing, Other (on Vapotherm) Cardiovascular: Regular Rate, Rhythm, No Murmur Capillary Refill: Less Than 3 Seconds Extremity: Pedal Edema, Swelling (in hands) Neurologic/Psychiatric: Alert, Oriented x3 Skin: Normal Color, Warm/Dry Results Lab Laboratory Tests 04/11/22 03:00 04/12/22 03:30 Assessment/Plan Assessment/Plan ` ALFONSO MCCABE MD Apr 12, 2022 09:19
[2022-04-12] MEDS: LABETALOL HCL 20 MG/4 ML VIAL IV PRN (10:05)
[2022-04-12] MEDS: ENOXAPARIN 40 MG/0.4 ML (LOVENOX) SYR SQ SCH (10:06)
--- NOTE | 2022-04-12 10:20 | Physical Therapy Daily Note ---
PT Daily Note-Current Subjective Patient is very confused, in bed with alarm activated. Mental Status Patient Orientation: Confused Attachments: Oxygen, Tian Catheter, IV Transfers SCALE: Activities may be completed with or without assistive devices. 0-Qgnrrwkcft-ztxyikg completes the activity by him/herself with no assistance from a helper. 5-Set-up or Clean-up Assistance-helper sets up or cleans up; patient completes activity. [place] assists only prior to or following the activity. 4-Supervision or Touching Assistance-helper provides verbal cues and/or touching/steadying and/or contact guard assistance as patient completes activ ity. Assistance may be provided throughout the activity or intermittently. 3-Partial/Moderate Assistance-helper does LESS THAN HALF the effort. [place] lifts, holds or supports trunk or limbs, but provides less than half the effort. 2-Substantial/Maximal Assistance-helper does MORE THAN HALF the effort. [place] lifts or holds trunk or limbs and provides more than half the effort. 7-Rhhgcgmme-zywvwq does ALL the effort. Patient does none of the effort to complete the activity. Or, the assistance of 2 or more helpers is required for the patient to complete the activity. If activity was not attempted, code reason: 7-Patient Refused. 9-Not Applicable-not attempted and the patient did not perform the activity before the current illness, exacerbation or injury. 10-Not Attempted due to Environmental Limitations-(lack of equipment, weather restraints, etc.). 88-Not Attempted due to Medical Conditions or Safety Concerns. Roll Left & Right (QC): 1 Bed placed in Trendelenberg to reposition patient Exercises Supine Ex: Ankle pumps, Heel Slides, Straight leg raise, Hip abd/add Supine Reps: 15 (x 3 sets bilaterally AAROM) Assessment Due to patient's confusion, he is not safe for OOB activity on this date. Bed placed in chair position with alarm activated. Increase activity as tolerated by patient. PT Valve Inspector Goals Shelter Goals PT Valve Inspector Goals Time Frame: Apr 18, 2022 Roll Left & Right (QC): 3 Sit to Lying (QC): 3 Lying-Sitting on Side/Bed(QC): 3 Sit to Stand (QC): 3 Chair/Koq-rr-Dpfxm Xfer(QC): 3 PT Plan Treatment/Plan Treatment Plan: Continue Plan of Care Treatment Plan: Bed Mobility, Education, Functional Activity [place], Functional Strength, Gait, Safety, Therapeutic Exercise, Transfers Treatment Duration: Apr 18, 2022 Frequency: 6 times per week Estimated Hrs Per Day: .25 hour per day Patient and/or Family Agrees t: Yes Time/GCodes Time In: 800 Time Out: 823 Total Billed Treatment Time: 23 Total Billed Treatment 1 visit EX x 2 23 min HERNANDEZ HARRISON PT Apr 12, 2022 10:20
--- NOTE | 2022-04-12 10:31 | Occupational Ther Daily Note ---
OT Current Status-Daily Note Subjective Pt alert, lying in bed. Pt very agreeable to therapy. No c/o pain. Pt c/o being weak. Mental Status/Objective Patient Orientation: Person, Place, Time, Situation Attachments: Tian Catheter, IV, Oxygen, Telemetry ADL-Treatment Therapy Code Descriptions/Definitions Functional Reading Measure: 0=Not Assessed/NA 4=Minimal Assistance 1=Total Assistance 5=Supervision or Setup 2=Maximal Assistance 6=Modified Reading 3=Moderate Assistance 7=Complete IndependenceSCALE: Activities may be completed with or without assistive devices. 3-Jbjpwjgfkf-otwlqcz completes the activity by him/herself with no assistance from a helper. 5-Set-up or Clean-up Assistance-helper sets up or cleans up; patient completes activity. [place] assists only prior to or following the activity. 4-Supervision or Touching Assistance-helper provides verbal cues and/or touching/steadying and/or contact guard assistance as patient completes activity. Assistance may be provided throughout the activity or intermittently. 3-Partial/Moderate Assistance-helper does LESS THAN HALF the effort. [place] lifts, holds or supports trunk or limbs, but provides less than half the effort. 2-Substantial/Maximal Assistance-helper does MORE THAN HALF the effort. [place] lifts or holds trunk or limbs and provides more than half the effort. 0-Orfpeqzei-wnhwvx does ALL the effort. Patient does none of the effort to complete the activity. Or, the assistance of 2 or more helpers is required for the patient to complete the activity. If activity was not attempted, code reason: 7-Patient Refused. 9-Not Applicable-not attempted and the patient did not perform the activity before the current illness, exacerbation or injury. 10-Not Attempted due to Environmental Limitations-(lack of equipment, weather restraints, etc.). 88-Not Attempted due to Medical Conditions or Safety Concerns. Other Treatment Pt tolerated only 1 set 15 reps of AAROM on R UE for 6 exercises then 1 set 15 reps of AAROM on L UE for 1 exercises then stated he was done. Completed 5 more exercises 1 set 10 reps of PROM on L UE. shldr flex, shldr abd/add, elbow flex/ext, forearm pron/sup, wrist flex/ext, finger flex/ext. More weak in R UE than L UE. After session, pt lying in bed with call light/phone in reach. All needs met. OT Chcf Goals Farm Demonstrator Goals Time Frame: Apr 27, 2022 Eating (QC): 3 Oral Hygiene (QC): 3 Toileting Hygiene (QC): 3 Shower/Bathe Self (QC): 3 Upper Body Dressing (QC): 3 Lower Body Dressing (QC): 3 On/Off Footwear (QC): 2 Additional Goals: 1-Demonstrate ADL Tasks, 2-Verbalize Understanding, 3- ImproveStrength/[place] 1=Demonstrate adherence to instructed precautions during ADL tasks. 2=Patient will verbalize/demonstrate understanding of assistive devices/modifications for ADL. 3=Patient will improve strength/tolerance for activity to enable patient to perform ADL's. OT Education/Plan Problem List/Assessment Assessment: Decreased Activ Tolerance, Decreased UE Strength, Impaired Bed Mobility, Impaired Self-Care Skills, Restricted Funct UE ROM Discharge Recommendations Plan/Recommendations: Continue POC Treatment Plan/Plan of Care Patient would benefit from OT for education, treatment and training to promote independence in ADL's, mobility, safety and/or upper extremity function for ADL's. Plan of Care: ADL Retraining, Caregiver Training, Cognitive Retraining, Functional Mobility, UE Funct Exercise/Act, UE Neuromus Re-Ed/Coord Treatment Duration: Apr 27, 2022 Frequency: 3 times per week (3-5 times per week) Agreement: Yes Rehab Potential: Guarded Time/GCodes Start Time: 10:15 Stop Time: 10:30 Total Time Billed (hr/min): 15 Billed Treatment Time 1 visit-EX 1 (15 min) ANNIE FRIEND Apr 12, 2022 10:31
[2022-04-12] MEDS: LORazepam INJ 2 MG/ML (ATIVAN) VIAL IVP PRN ×2 (12:04→20:05)
--- NOTE | 2022-04-12 12:34 | Speech Therapy Daily Note ---
Speech Daily Progress Note Subjective Date Seen by Provider: Apr 12, 2022 Time Seen by Provider: 11:50 The patient was seated upright in bed, awake and alert upon entrance to his room by the clinician. The patient verbally greets the clinician and is agreeable to participation in the dysphagia treatment session. The patient's remains at bedside. Per RN, the patient has displayed fluctuating levels of confusion with intermittent hallucinations present. Objective The patient orally accepted thin liquid via teaspoon and straw drink (single and consecutive) and teaspoons of puree. The patient does not display s/s of suspected aspiration with any P.O. trial provided. The patient remains on high flow nasal cannula at a rate of 25 lpm at 40% with SpO2% at 95%. The patient's SpO2% remained stable throughout each P.O. trial and following. The patient would intermittently display oral holding of puree, however, would briskly initiate posterior transfer with verbal prompting. The patient appeared to fatigue quickly, therefore, solid trials were not attempted for energy conservation. Recommendations: - Dysphagia one consistency diet (pureed) with thin liquids, as tolerated. - Fully upright and alert for PO intake. - 1:1 feeding assistance and supervision. Monitor for oral holding due to fluctuating cognitive status and alertness. - Cease PO intake during periods of fatigue. - Monitor for s/s of suspected aspiration with PO intake. If demonstrated, contact speech pathology. The results and recommendations were discussed extensively with the patient, the patient's , and the RN. All of the patient's 's questions were answered within the scope of the clinician's practice. The patient's verbalized comprehension and agreed with the plan of care at the end of the session. Assessment Assessment Current Status: Fair Progress Treatment Plan Continue Plan of Care Speech Short Term Goals Short Term Goals Short Term Goals 1. The patient, staff, and family will follow swallowing safety strategies with 90% accuracy and mild clinician verbal cueing. Time Frame-STG: Five Days. Speech Usp Goals Usp Goals 1. The patient will tolerate the least restrictive diet consistency without s/s of suspected aspiration. Speech-Plan Treatment Plan Speech Therapy Treatment Plan: Continue Plan of Care Treatment Duration: Apr 25, 2022 Frequency: 3 times per week (Three to five times per week.) Estimated Hrs Per Day: .25 hour per day Rehab Potential: Guarded Safety Risks/Education Teaching Recipient: Patient, Family Teaching Methods: Discussion Response to Teaching: Reinforcement Needed Education Topics Provided: Results, Recommendations, Plan of Care Time Speech Therapy Time In: 11:50 Speech Therapy Time Out: 12:10 Total Billed Time: 20 Billed Treatment Time SUE Castillo [facility] Apr 12, 2022 12:34
[2022-04-12] MEDS: LACTATED RINGERS 1,000 ML IV SCH (13:10)
[2022-04-12] MEDS: DexMEDEtomidine 250 ML DRIP 250 ML IV SCH (16:18)
--- NOTE | 2022-04-12 16:45 | Physician Query Clarification ---
Physician Query-General Query to Physician: The medical record reflects the following clinical evidence: Clinical Indicators: WBC 18,7 on admission, PCT 0.09, Non productive cough on admission that became productive, Sputum culture from the day after admission Pos for Klebsiella aerogenes Risk Factor(s): COPD, Home 02, Treatment: Ceftriaxone IV, Duonebs, Mechanical Ventilation for greater than 48 hours 1. Pneumonia due to Klebsiella pneumoniae, likely present on admission 2. Other explanation of clinical findings 3. Unable to determine (no explanation for clinical findings) Please clarify and document your clinical opinion in the progress notes and discharge summary including the definitive and/or presumptive diagnosis, ( suspected or probable), related to the above clinical findings. Please include clinical findings supporting your diagnosis. Jing Mina MSN, RN Clinical Pipeline Engineer [phone] [email or web address] PHYSICIAN RESPONSE: Based on the clinical findings in the record, please respond to the query above on this document as an addendum. Physician Response: Physician Response 1 If you have questions please contact: Ribbon Hand: Ext: Thank you for your time and cooperation. Clinical Pipeline Engineer/Ribbon Hand This is a permanent part of the medical record JING MINA Apr 12, 2022 16:45 MARK LAZARO MD Apr 13, 2022 08:07
[2022-04-12 18:56] VITALS: BP 130/63
[2022-04-12 22:44] VITALS: BP 128/68
[2022-04-13 02:45] VITALS: BP 112/60
[2022-04-13] MEDS: RT-ALBUTEROL/IPRATROPIUM 3 ML (DUONEB) VIAL INH SCH ×6 (02:45→23:18)
[2022-04-13 05:30] LABS: BASOPHILS % (AUTO) 0 % (0-10); EOSINOPHILS % (AUTO) 0 % (0-10); HEMATOCRIT 34 % (40-54); HEMOGLOBIN 10.5 g/dL (13.3-17.7); LYMPHOCYTES # (AUTO) 0.3 10^3/uL (1.0-4.0); LYMPHOCYTES % (AUTO) 3 % (12-44); MEAN CORPUSCULAR HEMOGLOBIN 31 pg (25-34); MEAN CORPUSCULAR HGB CONC 31 g/dL (32-36); MEAN CORPUSCULAR VOLUME 100 fL (80-99); MONOCYTES # (AUTO) 0.6 10^3/uL (0.0-1.0); MONOCYTES % (AUTO) 5 % (0-12); NEUTROPHILS # (AUTO) 10.6 10^3/uL (1.8-7.8); NEUTROPHILS % (AUTO) 91 % (42-75); PLATELET COUNT 179 10^3/uL (130-400); WHITE BLOOD COUNT 11.7 10^3/uL (4.3-11.0)
[2022-04-13 05:38] LABS: POTASSIUM 5.1 MMOL/L (3.6-5.0)
[2022-04-13 05:39] LABS: CALCIUM 8.2 MG/DL (8.5-10.1)
[2022-04-13 05:44] LABS: CREATININE SERUM 1.7 MG/DL (0.60-1.30); PHOSPHORUS 5.4 MG/DL (2.3-4.7)
[2022-04-13 05:46] LABS: MAGNESIUM 3.5 MG/DL (1.6-2.4)
[2022-04-13] MEDS: MAGNESIUM 1 GM/100 ML IVPB 100 ML IV SCH (06:06)
[2022-04-13] MEDS: POTASSIUM CL 10MEQ/50ML IVPB 50 ML IV SCH (06:06)
[2022-04-13] MEDS: KCL 20 MEQ TAB (K-DUR) PO SCH (06:06)
[2022-04-13] MEDS: LACTATED RINGERS 1,000 ML IV SCH ×2 (06:06→16:45)
[2022-04-13] MEDS: D5W 1000 ML IV SOLUTION 1,000 ML IV SCH (06:19)
[2022-04-13] MEDS: methylPREDNISolone 125 MG (Solu-MEDROL) VIAL IVP SCH ×4 (06:20→23:43)
[2022-04-13] MEDS: inSUlin ASPART (NovoLOG) 1 UNIT/0.01 ML (CHARGE PER UNIT) SC SCH ×4 (06:20→23:38)
[2022-04-13] MEDS: PROPOFOL DRIP (ICU) 100 ML IV SCH (06:29)
[2022-04-13 07:37] VITALS: BP 141/73
[2022-04-13] MEDS ORDERED: FUROSEMIDE 40 MG/4 ML INJ (LASIX) IVP ONE ×2 (07:45→08:00)
--- NOTE | 2022-04-13 07:58 | Progress Note - Hospitalist ---
Subjective HPI/CC On Admission Date Seen by Provider: Apr 13, 2022 Time Seen by Provider: 07:53 Patient 76-year-old male with past medical history of COPD with baseline 4 L/min oxygen requirement, CVA, hyperlipidemia who presented to the emergency department due to abdominal pain. He had imaging that revealed multiple kidney stones and they were prepping for discharge as his pain was controlled but he became hypotensive. In review of labs he was found to have a leukocytosis of 18,000 and decision was made to admit for further management. I was called to bedside shortly after arrival to the ICU due to decline in r espiratory status. He is unable to provide me much history and is pulling at his BiPAP. His states that he has known COPD and wears 4 L of oxygen per minute. She states he would be agreeable with intubation if needed. He is unable to provide me any history due to his clinical condition. Subjective/Events-last exam Pt on BiPAP. Nods when spoken to but did not answer any question. RN Reports he gets confused in the evenings and had to go up on precedex and back on BiPAP after trying to get out of bed and getting winded. Objective Exam Vital Signs Vital Signs Date Time Temp Pulse Resp B/P (MAP) Pulse Ox O2 Delivery O2 Flow Rate FiO2 04/13/22 06:00 60 17 135/73 97 NIV Bilevel 30.00 04/13/22 04:00 30 04/13/22 03:42 36.2 Capillary Refill : Less Than 3 Seconds General Appearance: Chronically ill, Obese Respiratory: Rhonci, Other (on BiPAP) Cardiovascular: Regular Rate, Rhythm, No Murmur Gastrointestinal: Normal Bowel Sounds, Non Tender, Soft Neurologic/Psychiatric: Alert, Oriented x3 Results/Procedures Lab Laboratory Tests 04/13/22 05:20 Patient resulted labs reviewed. Imaging: Reviewed Imaging Report Assessment/Plan Assessment and Plan Assess & Plan/Chief Complaint Acute on chronic hypoxic respiratory failure COPD with acute exacerbation ICU psychosis Continue steroids Extubated 04/10 TeleICU consulted, appreciate recs MAT Protocol Currently on BiPAP Repeat CXR ordered Risperdal added PT/OT Sputum culture with klebsiella and Stenotrophomonas maltophilia- discussed with pharmacy and continue Bactrim and Rocephin Updated today all questions answered Sepsis- severe POA Nephrolithiais JUAN Continue on abx, urine culture NGTD despite moderate bacteria on UA Urology consulted, appreciate recs Creatinine up slightly with mild hyperkalemia Lasix ordered UOP remains adequate HTN BP improved h/o CVA Chronic anticoagulation No deficits on Warfarin at home CT Head negative for acute findings DVT ppx: Lovenox Critical Care Critically Ill Patient Diagnosis/Problems Diagnosis/Problems (1) Acute respiratory failure Qualifiers: Respiratory failure complication: hypoxia Qualified Codes: J96.01 - Acute respiratory failure with hypoxia (2) Essential (primary) hypertension Status: Chronic (3) HLD (hyperlipidemia) Status: Chronic Qualifiers: Hyperlipidemia type: mixed hyperlipidemia Qualified Codes: E78.2 - Mixed hyperlipidemia (4) COPD with acute exacerbation Status: Acute (5) UTI (urinary tract infection) Status: Acute Qualifiers: Urinary tract infection type: acute cystitis Hematuria presence: with hematuria Qualified Codes: N30.01 - Acute cystitis with hematuria (6) Sepsis Status: Acute Qualifiers: Sepsis type: sepsis due to unspecified organism Sepsis acute organ dysfunction status: with acute organ dysfunction Severe sepsis acute organ dysfunction type: acute renal failure Acute renal failure type: unspecified Severe sepsis shock status: unspecified Qualified Codes: A41.9 - Sepsis, unspecified organism; R65.20 - Severe sepsis without septic shock; N17.9 - Acute kidney failure, unspecified (7) Mass of left thigh Status: Acute (8) Ureteral calculus, left Status: Acute MARK LAZARO MD Apr 13, 2022 07:58
--- NOTE | 2022-04-13 08:19 | Tele-ICU Progress Note ---
Subjective Date Seen by a Provider: Apr 13, 2022 Time Seen by a Provider: 06:50 Subjective/Events-last exam This virtual visit was conducted using real time audio/video. Thank you for asking us to see this patient for respiratory insufficiency due to AECOPD. Adm w renal stone, UTI, sepsis Recent events: Confusion increasing. Extubated 04/10/2022. PMH: COPD/home O2 4 LPM, CVA on coum., HL SH: smoking history: former PE: Mild distress, obese. VSS. O2 sat 96% on VT 30 LPM, 40%. HEENT: No obvious masses, adenopathy or JVD. Chest: Rhonchi on auscultation. Diminished. CV: RRR S1 S2 No murmur or added sounds. Abd: Non-tender. Bowel sounds Y. : Unremarkable. Tian Y. SOUND RECORDING TECHNICIAN/psychiatric: Grossly intact. No obvious focal findings. Extremities: No edema. Capillary refill < 3 seconds. Skin: unremarkable. Results: Elevated WCC 11.7, BG 206, Creat 1.7. Decreased Hb 10.5. CXR: Hyperinflated, clear urrutia. Available chart/ vitals / labs / images reviewed. Video assessment done using teleICU camera, rest of exam as per RN. A/P: Respiratory insufficiency: Continue present management with VT, duonebs, medrol, Prec. Monitor for increasing oxygenation needs and/or need for intubation. Critical Care: critically ill patient. Cont.IVF, abx, PPI, SSI, PRN Hydral., Labet. Discussed with REAL Neff. Asked RN to reach out to eICU if any questions or concerns later. Time spent with patient/coordination of care with other health professionals (mins): 20 Sepsis Event Evaluation Height, Weight, BMI Height: 6'1.00" Weight: 235lbs. 0.4oz. 85.956904al; 31.46 BMI Method:Stated Exam Exam Patient acknowledged, consented, and participated in this virtual visit which was conducted using real time audio/video Vital Signs Date Time Temp Pulse Resp B/P (MAP) Pulse Ox O2 Delivery O2 Flow Rate FiO2 04/13/22 06:00 60 17 135/73 97 NIV Bilevel 30.00 04/13/22 05:00 65 18 127/75 96 NIV Bilevel 30.00 04/13/22 04:00 64 18 123/63 96 NIV Bilevel 30.00 04/13/22 04:00 96 NIV Bilevel 30 04/13/22 03:42 36.2 04/13/22 03:00 61 18 121/76 97 NIV Bilevel 30.00 04/13/22 02:45 72 18 96 30.00 04/13/22 02:00 72 18 121/68 96 NIV Bilevel 30.00 04/13/22 01:00 70 18 123/59 96 NIV Bilevel 30.00 04/13/22 01:00 76 04/13/22 00:00 68 18 122/65 97 NIV Bilevel 30.00 04/12/22 23:59 96 NIV Bilevel 30 04/12/22 23:29 36.8 04/12/22 23:00 71 18 124/67 96 NIV Bilevel 30.00 04/12/22 22:44 71 18 97 30.00 04/12/22 22:00 71 23 128/62 96 NIV Bilevel 30.00 04/12/22 21:00 68 18 123/63 96 NIV Bilevel 30.00 04/12/22 20:00 97 NIV Bilevel 30 04/12/22 20:00 84 19 118/64 93 NIV Bilevel 30.00 04/12/22 19:00 71 04/12/22 19:00 71 20 119/63 97 NIV Bilevel 30.00 04/12/22 19:00 NIV Bilevel 30.00 04/12/22 18:56 72 18 97 30.00 04/12/22 18:00 71 20 113/66 98 NIV Bilevel 30.00 04/12/22 17:42 NIV Bilevel 30.00 04/12/22 17:00 80 24 127/87 94 Vapotherm 25.00 35.00 04/12/22 16:21 95 Vapotherm 25.00 35 04/12/22 16:18 82 121/78 04/12/22 16:06 96 Vapotherm 25.00 35 04/12/22 16:00 78 24 132/70 95 Vapotherm 25.00 35.00 04/12/22 15:39 36.6 04/12/22 15:00 82 27 121/78 96 Vapotherm 25.00 35.00 04/12/22 14:23 82 04/12/22 14:00 90 22 131/75 95 NIV Bilevel 35.00 04/12/22 13:00 74 20 143/72 94 NIV Bilevel 35.00 04/12/22 12:00 74 13 133/102 95 NIV Bilevel 35.00 04/12/22 12:00 95 Vapotherm 25.00 35 04/12/22 11:32 36.0 04/12/22 11:00 71 12 156/73 96 NIV Bilevel 35.00 04/12/22 10:51 96 Vapotherm 30.00 40 04/12/22 10:00 91 12 183/88 96 NIV Bilevel 35.00 04/12/22 09:00 86 14 174/80 95 NIV Bilevel 35.00 I & O 04/13/22 07:00 Intake Total 150 ml Output Total 1475 ml Balance -1325 ml Height & Weight Height: 6'1.00" Weight: 235lbs. 0.4oz. 85.562007xs; 31.46 BMI Method:Stated General Appearance: Chronically ill, Obese HEENT: PERRL/EOMI; No Scleral Icterus (L), No Scleral Icterus (R); Other (ecam obscured by BiPAP mask) Neck: No JVD Respiratory: Rhonci, Other (on BiPAP) Cardiovascular: Regular Rate, Rhythm, No Murmur Capillary Refill: Less Than 3 Seconds Extremity: Pedal Edema, Swelling (in hands) Neurologic/Psychiatric: Alert, Oriented x3 Skin: Normal Color, Warm/Dry Results Lab Laboratory Tests 04/12/22 03:30 04/13/22 05:20 Assessment/Plan Assessment/Plan See free text. Critical Care: Critically Ill Patient JOANNE ZELAYA MD Apr 13, 2022 08:19
--- NOTE | 2022-04-13 08:38 | Diagnostic Imaging Report ---
INDICATION: Abnormal breath sounds Frontal chest obtained at 08:01 a.m. and compared to 04/11/2022. The heart and mediastinal silhouette are normal in appearance. The lungs show no focal infiltrate. There are COPD changes. There is no pneumothorax or pleural fluid. Right-sided PICC line is unchanged. IMPRESSION: COPD changes with no acute process in the chest. Dictated by: Dictated on workstation # [id number]
[2022-04-13] MEDS: DexMEDEtomidine 250 ML DRIP 250 ML IV SCH (08:59)
[2022-04-13] MEDS: 1/2 NS IV SOLUTION 1,000 ML IV SCH ×2 (08:59→17:56)
[2022-04-13] MEDS: cefTRIAXone 1 GM IV (PRE-MIX) 50 ML IV SCH (08:59)
[2022-04-13] MEDS: PANTOPRAZOLE 40 MG (PROTONIX) VIAL IV SCH (09:00)
[2022-04-13] MEDS: ENOXAPARIN 40 MG/0.4 ML (LOVENOX) SYR SQ SCH (09:00)
[2022-04-13] MEDS: risperiDONE 0.25 MG (RisperDAL) TAB PO SCH ×2 (09:00→20:13)
[2022-04-13] MEDS: SULFAMETHOXAZOLE/TRIMETHO SUSP 10 ML (BACTRIM) UDC PO SCH ×2 (09:00→20:13)
--- NOTE | 2022-04-13 09:26 | Progress Note - Urology ---
Progress Note-Urology Progress Notes/Assess & Plan Progress/Assessment & Plan STILL NO STONE PASSED AND NO PAIN. WILL SEE PRN Final Diagnosis URETERAL STONE SHAZIA TAYLOR MD Apr 13, 2022 09:26
--- NOTE | 2022-04-13 10:09 | Physical Therapy Progress Note ---
Therapy Progress Note Patient on hold for now per nursing. He got meds due to confusion/agitation and is too lethargic to participate. RILEY ADAM PT Apr 13, 2022 10:09
--- NOTE | 2022-04-13 11:12 | Speech Therapy Progress Note ---
Therapy Progress Note Speech pathology attempted dysphagia skilled treatment at 1104. At this time, the patient is receiving BiPAP. The clinician will re-attempt the treatment session as the patient is appropriate and the clinician is able. LISETTE GREENWOOD 17, 2022 11:12
[2022-04-13 11:29] VITALS: BP 112/60
--- NOTE | 2022-04-13 11:54 | Occ Therapy Progress Note ---
Therapy Progress Note Patient on hold for now per nursing. Pt having hallucinations, confusion and increased agitation, medications given to calm pt. Pt too lethargic to participate in therapy at this time. ANNIE FRIEND Apr 13, 2022 11:54
[2022-04-13] MEDS: LORazepam INJ 2 MG/ML (ATIVAN) VIAL IVP PRN (18:48)
[2022-04-13 19:00] VITALS: BP 122/68
[2022-04-13] MEDS: morphine INJ 4 MG/ML 1 ML (VIAL/SYRINGE) IV PRN ×2 (20:16→22:22)
[2022-04-13 23:18] VITALS: BP 95/53
[2022-04-14] MEDS: LORazepam INJ 2 MG/ML (ATIVAN) VIAL IVP PRN ×4 (01:18→22:25)
[2022-04-14] MEDS: DexMEDEtomidine 250 ML DRIP 250 ML IV SCH ×2 (01:18→17:18)
[2022-04-14 02:23] VITALS: BP 140/77
[2022-04-14] MEDS: RT-ALBUTEROL/IPRATROPIUM 3 ML (DUONEB) VIAL INH SCH ×6 (02:23→22:40)
[2022-04-14] MEDS: LACTATED RINGERS 1,000 ML IV SCH ×2 (02:38→21:46)
[2022-04-14 04:02] LABS: BASOPHILS % (AUTO) 0 % (0-10); EOSINOPHILS % (AUTO) 0 % (0-10); HEMATOCRIT 34 % (40-54); LYMPHOCYTES # (AUTO) 0.3 10^3/uL (1.0-4.0); LYMPHOCYTES % (AUTO) 2 % (12-44); MEAN CORPUSCULAR HEMOGLOBIN 32 pg (25-34); MEAN CORPUSCULAR HGB CONC 32 g/dL (32-36); MEAN CORPUSCULAR VOLUME 99 fL (80-99); MONOCYTES # (AUTO) 0.7 10^3/uL (0.0-1.0); MONOCYTES % (AUTO) 6 % (0-12); NEUTROPHILS # (AUTO) 11.2 10^3/uL (1.8-7.8); NEUTROPHILS % (AUTO) 90 % (42-75); PLATELET COUNT 176 10^3/uL (130-400); WHITE BLOOD COUNT 12.4 10^3/uL (4.3-11.0)
[2022-04-14 04:15] LABS: POTASSIUM 4.9 MMOL/L (3.6-5.0)
[2022-04-14] MEDS: morphine INJ 4 MG/ML 1 ML (VIAL/SYRINGE) IV PRN ×3 (04:16→19:15)
[2022-04-14 04:20] LABS: CREATININE SERUM 1.55 MG/DL (0.60-1.30); PHOSPHORUS 5.3 MG/DL (2.3-4.7)
[2022-04-14] MEDS: 1/2 NS IV SOLUTION 1,000 ML IV SCH ×2 (04:20→15:02)
[2022-04-14 04:23] LABS: MAGNESIUM 3.1 MG/DL (1.6-2.4)
[2022-04-14] MEDS: KCL 20 MEQ TAB (K-DUR) PO SCH (05:04)
[2022-04-14] MEDS: MAGNESIUM 1 GM/100 ML IVPB 100 ML IV SCH (05:04)
[2022-04-14] MEDS: POTASSIUM CL 10MEQ/50ML IVPB 50 ML IV SCH (05:04)
[2022-04-14] MEDS: inSUlin ASPART (NovoLOG) 1 UNIT/0.01 ML (CHARGE PER UNIT) SC SCH ×3 (05:05→18:32)
[2022-04-14] MEDS: methylPREDNISolone 125 MG (Solu-MEDROL) VIAL IVP SCH ×3 (05:27→17:07)
[2022-04-14 06:54] VITALS: BP 115/70
[2022-04-14] MEDS: risperiDONE 0.25 MG (RisperDAL) TAB PO SCH ×2 (09:06→21:47)
[2022-04-14] MEDS: SULFAMETHOXAZOLE/TRIMETHO SUSP 10 ML (BACTRIM) UDC PO SCH ×2 (09:06→21:47)
[2022-04-14] MEDS: ENOXAPARIN 40 MG/0.4 ML (LOVENOX) SYR SQ SCH (09:06)
[2022-04-14] MEDS: PANTOPRAZOLE 40 MG (PROTONIX) VIAL IV SCH (09:07)
--- NOTE | 2022-04-14 11:08 | Tele-ICU Progress Note ---
Subjective Date Seen by a Provider: Apr 14, 2022 Time Seen by a Provider: 11:02 Subjective/Events-last exam 76 yo M recently extubated 04/10, now on 3 lpm, SpO2 96%, mild resp distress Uses BiPAP at night 14/06, FiO2 25% Hx of renal stones-no pain, urine is not showing blood grossly CXR 04/13 COPD but no infiltrate Only on po Bactrim Sepsis Event Evaluation Height, Weight, BMI Height: 6'1.00" Weight: 235lbs. 0.4oz. 85.081484rw; 31.46 BMI Method:Stated Exam Exam Patient acknowledged, consented, and participated in this virtual visit which was conducted using real time audio/video Vital Signs Date Time Temp Pulse Resp B/P (MAP) Pulse Ox O2 Delivery O2 Flow Rate FiO2 04/14/22 10:27 92 Vapotherm 15.00 21 04/14/22 10:00 82 13 131/66 91 NIV Bilevel 25.00 04/14/22 09:00 75 11 139/70 97 NIV Bilevel 25.00 04/14/22 08:00 87 12 122/66 96 NIV Bilevel 25.00 04/14/22 08:00 97 NIV Bilevel 25 04/14/22 08:00 36.8 04/14/22 07:00 68 04/14/22 07:00 71 14 107/63 95 NIV Bilevel 25.00 04/14/22 06:54 76 22 95 25.00 04/14/22 06:00 68 16 107/65 94 NIV Bilevel 25.00 04/14/22 05:00 68 19 115/63 96 NIV Bilevel 25.00 04/14/22 04:00 75 18 123/53 96 NIV Bilevel 25.00 04/14/22 04:00 98 NIV Bilevel 25 04/14/22 03:00 77 19 121/65 96 NIV Bilevel 25.00 04/14/22 02:23 76 21 95 28.00 04/14/22 02:00 75 20 127/66 96 NIV Bilevel 25.00 04/14/22 01:18 77 126/76 04/14/22 01:00 71 04/14/22 01:00 77 21 126/76 96 NIV Bilevel 25.00 04/14/22 00:00 73 30 125/68 95 NIV Bilevel 25.00 04/14/22 00:00 36.0 NIV Bilevel 25.00 04/13/22 23:59 97 NIV Bilevel 25 04/13/22 23:18 78 20 96 28.00 04/13/22 23:00 77 18 117/56 97 NIV Bilevel 28.00 04/13/22 22:00 71 20 119/73 96 NIV Bilevel 28.00 04/13/22 21:00 75 18 128/72 96 NIV Bilevel 28.00 04/13/22 20:00 72 24 137/85 98 NIV Bilevel 28.00 04/13/22 20:00 36.4 04/13/22 20:00 96 NIV Bilevel 25 04/13/22 19:00 69 19 96 28.00 04/13/22 19:00 73 18 132/72 97 NIV Bilevel 28.00 04/13/22 19:00 70 04/13/22 18:00 66 21 131/74 96 NIV Bilevel 28.00 04/13/22 17:51 NIV Bilevel 28.00 04/13/22 17:00 66 18 120/75 98 High Flow N/C 3.50 04/13/22 16:36 High Flow N/C 3.50 04/13/22 16:14 High Flow N/C 4.50 04/13/22 16:00 96 High Flow N/C 3.50 04/13/22 16:00 73 29 133/67 96 Vapotherm 25.00 30.00 04/13/22 15:09 94 Vapotherm 25.00 30 04/13/22 15:00 63 20 129/74 94 Vapotherm 25.00 30.00 04/13/22 14:06 Vapotherm 25.00 30.00 04/13/22 14:00 68 17 124/72 94 NIV Bilevel 28.00 04/13/22 13:00 66 17 122/64 98 NIV Bilevel 28.00 04/13/22 12:38 67 04/13/22 12:00 62 18 133/71 97 NIV Bilevel 28.00 04/13/22 12:00 35.7 04/13/22 12:00 98 Vapotherm 25.00 30 04/13/22 11:29 72 18 96 28.00 I & O 04/14/22 07:00 Intake Total 1125 ml Output Total 2725 ml Balance -1600 ml Height & Weight Height: 6'1.00" Weight: 235lbs. 0.4oz. 85.651991gh; 31.46 BMI Method:Stated General Appearance: Chronically ill, Mild Distress, Obese HEENT: PERRL/EOMI; No Scleral Icterus (L), No Scleral Icterus (R); Other (ecam obscured by BiPAP mask) Neck: No JVD Respiratory: Rhonci, Wheezing, Other (on BiPAP) Cardiovascular: Regular Rate, Rhythm, No Murmur Capillary Refill: Less Than 3 Seconds Gastrointestinal: normal bowel sounds, non tender, distended Extremity: No Pedal Edema, Pedal Edema, Swelling (in hands) Neurologic/Psychiatric: Alert, Oriented x3 Skin: Normal Color, Warm/Dry Results Lab Laboratory Tests 04/13/22 05:20 04/14/22 03:50 Assessment/Plan Assessment/Plan Improving with dropping Cr 1.70 to 1.55 Breathing still not normal but acceptable, will continue albuterol Urology note read, stone has not passed, sounds like plan is to just observe, pt is not c/o pain May go to 4N later today Critical Care: Critically Ill Patient Time spent with patient (mins): 30 SARITHA RODRIGUEZ MD Apr 14, 2022 11:08
--- NOTE | 2022-04-14 12:42 | Physical Therapy Daily Note ---
PT Daily Note-Current Subjective States that he will try some exercises. Transfers SCALE: Activities may be completed with or without assistive devices. 0-Kkirwfwpoi-vdrdmbn completes the activity by him/herself with no assistance from a helper. 5-Set-up or Clean-up Assistance-helper sets up or cleans up; patient completes activity. [place] assists only prior to or following the activity. 4-Supervision or Touching Assistance-helper provides verbal cues and/or touching/steadying and/or contact guard assistance as patient completes activity. Assistance may be provided throughout the activity or intermittently. 3-Partial/Moderate Assistance-helper does LESS THAN HALF the effort. [place] lifts, holds or supports trunk or limbs, but provides less than half the effort. 2-Substantial/Maximal Assistance-helper does MORE THAN HALF the effort. [place] lifts or holds trunk or limbs and provides more than half the effort. 2-Bcsbskuub-wfmrqh does ALL the effort. Patient does none of the effort to complete the activity. Or, the assistance of 2 or more helpers is required for the patient to complete the activity. If activity was not attempted, code reason: 7-Patient Refused. 9-Not Applicable-not attempted and the patient did not perform the activity before the current illness, exacerbation or injury. 10-Not Attempted due to Environmental Limitations-(lack of equipment, weather restraints, etc.). 88-Not Attempted due to Medical Conditions or Safety Concerns. Exercises Supine Ex: LE Protocol Supine Reps: 20 Assessment Current Status: Fair Progress Very lethargic today and difficulty doing any exercises. PT Snf Goals Tufter Hand Goals PT Snf Goals Time Frame: Apr 18, 2022 Roll Left & Right (QC): 3 Sit to Lying (QC): 3 Lying-Sitting on Side/Bed(QC): 3 Sit to Stand (QC): 3 Chair/Moj-rm-Zwqqp Xfer(QC): 3 PT Plan Treatment/Plan Treatment Plan: Continue Plan of Care Treatment Plan: Bed Mobility, Education, Functional Activity Jeferson, Functional Strength, Gait, Safety, Therapeutic Exercise, Transfers Treatment Duration: Apr 18, 2022 Frequency: 6 times per week Estimated Hrs Per Day: .25 hour per day Patient and/or Family Agrees t: Yes Time/GCodes Time In: 1220 Time Out: 1230 Total Billed Treatment Time: 10 Total Billed Treatment 1, EX x 10' ZAHEER GODINEZ PT Apr 14, 2022 12:42
--- NOTE | 2022-04-14 13:36 | Diagnostic Imaging Report ---
INDICATION: Cough COMPARISON: 04/13/2022 FINDINGS: COPD as a chronic finding present. No focal or acute infiltrate. Right PICC line at the lower SVC. Heart size stable. No overt failure pattern. No effusion no pneumothorax. IMPRESSION: Air trapping and emphysematous features with well-positioned right PICC line. No acute or focal abnormality identified. Dictated by: Dictated on workstation # [id number]
[2022-04-14 16:58] VITALS: BP 135/82
[2022-04-14] MEDS ORDERED: FUROSEMIDE 40 MG/4 ML INJ (LASIX) IVP ONE (17:00)
[2022-04-14] MEDS ORDERED: FUROSEMIDE 40 MG/4 ML INJ (LASIX) ONE (17:04)
[2022-04-14 19:03] VITALS: BP 122/56
--- NOTE | 2022-04-14 22:13 | Progress Note - Hospitalist ---
Subjective HPI/CC On Admission Date Seen by Provider: Apr 14, 2022 Time Seen by Provider: 10:25 Patient 76-year-old male with past medical history of COPD with baseline 4 L/min oxygen requirement, CVA, hyperlipidemia who presented to the emergency department due to abdominal pain. He had imaging that revealed multiple kidney stones and they were prepping for discharge as his pain was controlled but he became hypotensive. In review of labs he was found to have a leukocytosis of 18,000 and decision was made to admit for further management. I was called to bedside shortly after arrival to the ICU due to decline in r espiratory status. He is unable to provide me much history and is pulling at his BiPAP. His states that he has known COPD and wears 4 L of oxygen per minute. She states he would be agreeable with intubation if needed. He is unable to provide me any history due to his clinical condition. Objective Exam Vital Signs Vital Signs Date Time Temp Pulse Resp B/P (MAP) Pulse Ox O2 Delivery O2 Flow Rate FiO2 04/14/22 20:00 96 NIV Bilevel 25 04/14/22 19:03 67 21 25.00 04/14/22 18:00 112/62 04/14/22 11:55 36.2 Capillary Refill : Less Than 3 Seconds General Appearance: No Apparent Distress, Obese Respiratory: No Respiratory Distress, Decreased Breath Sounds Cardiovascular: Regular Rate, Rhythm, No Murmur Gastrointestinal: Normal Bowel Sounds, Soft Extremity: Normal Inspection, No Pedal Edema Neurologic/Psychiatric: Alert, Motor Weakness Skin: Normal Color, Warm/Dry Results/Procedures Lab Laboratory Tests 04/14/22 03:50 Patient resulted labs reviewed. Imaging: Reviewed Imaging Report Assessment/Plan Assessment and Plan Assess & Plan/Chief Complaint Acute on chronic hypoxic respiratory failure COPD with acute exacerbation Pneumonia Continue steroids MAT Protocol Extubated 04/10 TeleICU following PT/OT Sputum culture with klebsiella and Stenotrophomonas maltophilia s/p Rocephin Continue Bactrim ICU psychosis Risperdal Precedex, weaning as able Sepsis- severe POA Nephrolithiasis JUAN s/p Rocephin Urology following HTN BP improved h/o CVA Chronic anticoagulation No deficits on Warfarin at home CT Head negative for acute findings DVT ppx: Lovenox Critical Care Critically Ill Patient Diagnosis/Problems Diagnosis/Problems (1) Acute respiratory failure Status: Acute Qualifiers: Respiratory failure complication: hypoxia Qualified Codes: J96.01 - Acute respiratory failure with hypoxia (2) COPD with acute exacerbation Status: Acute (3) Infection with Stenotrophomonas maltophilia resistant to multiple drugs Status: Acute (4) Delirium Status: Acute ROSIO MAGAÑA MD Apr 14, 2022 22:13
[2022-04-14 22:41] VITALS: BP 129/93
[2022-04-15] MEDS: methylPREDNISolone 125 MG (Solu-MEDROL) VIAL IVP SCH ×3 (00:51→20:48)
[2022-04-15] MEDS: inSUlin ASPART (NovoLOG) 1 UNIT/0.01 ML (CHARGE PER UNIT) SC SCH ×4 (02:01→17:41)
[2022-04-15] MEDS: 1/2 NS IV SOLUTION 1,000 ML IV SCH ×3 (02:02→20:49)
[2022-04-15] MEDS: DexMEDEtomidine 250 ML DRIP 250 ML IV SCH ×3 (02:02→17:38)
[2022-04-15] MEDS: RT-ALBUTEROL/IPRATROPIUM 3 ML (DUONEB) VIAL INH SCH ×6 (02:04→23:17)
[2022-04-15 02:05] VITALS: BP 148/85
[2022-04-15 03:11] LABS: BASOPHILS % (AUTO) 0 % (0-10); EOSINOPHILS % (AUTO) 0 % (0-10); HEMATOCRIT 34 % (40-54); HEMOGLOBIN 10.7 g/dL (13.3-17.7); LYMPHOCYTES # (AUTO) 0.3 10^3/uL (1.0-4.0); LYMPHOCYTES % (AUTO) 3 % (12-44); MEAN CORPUSCULAR HEMOGLOBIN 31 pg (25-34); MEAN CORPUSCULAR HGB CONC 31 g/dL (32-36); MEAN CORPUSCULAR VOLUME 100 fL (80-99); MEAN PLATELET VOLUME 11.1 fL (9.0-12.2); MONOCYTES # (AUTO) 0.6 10^3/uL (0.0-1.0); MONOCYTES % (AUTO) 6 % (0-12); NEUTROPHILS # (AUTO) 8.9 10^3/uL (1.8-7.8); NEUTROPHILS % (AUTO) 89 % (42-75); PLATELET COUNT 156 10^3/uL (130-400)
[2022-04-15 03:23] LABS: POTASSIUM 5.4 MMOL/L (3.6-5.0)
[2022-04-15 03:24] LABS: CALCIUM 7.8 MG/DL (8.5-10.1)
[2022-04-15 03:28] LABS: CREATININE SERUM 1.36 MG/DL (0.60-1.30); PHOSPHORUS 5.5 MG/DL (2.3-4.7)
[2022-04-15] MEDS: MAGNESIUM 1 GM/100 ML IVPB 100 ML IV SCH (04:58)
[2022-04-15] MEDS: POTASSIUM CL 10MEQ/50ML IVPB 50 ML IV SCH (04:58)
[2022-04-15] MEDS: KCL 20 MEQ TAB (K-DUR) PO SCH (04:59)
[2022-04-15] MEDS: morphine INJ 4 MG/ML 1 ML (VIAL/SYRINGE) IV PRN ×4 (06:19→19:32)
[2022-04-15 07:58] VITALS: BP 114/78
[2022-04-15] MEDS: SULFAMETHOXAZOLE/TRIMETHO SUSP 10 ML (BACTRIM) UDC PO SCH ×2 (08:49→20:48)
[2022-04-15] MEDS: risperiDONE 0.25 MG (RisperDAL) TAB PO SCH ×2 (08:49→20:49)
[2022-04-15] MEDS: PANTOPRAZOLE 40 MG (PROTONIX) VIAL IV SCH (08:49)
[2022-04-15] MEDS: ENOXAPARIN 40 MG/0.4 ML (LOVENOX) SYR SQ SCH (08:49)
[2022-04-15] MEDS: LACTATED RINGERS 1,000 ML IV SCH (09:13)
--- NOTE | 2022-04-15 10:13 | Tele-ICU Progress Note ---
Subjective Date Seen by a Provider: Apr 15, 2022 Time Seen by a Provider: 10:12 Subjective/Events-last exam (Tele-ICU Physician , Progress Note ) Available chart/ vitals / labs / Images reviewed Video assessment done using teleICU camera, rest of exam as per RN Discussed with RN , EXAM PER RN Events overnight : hypertensive Afebrile FiO2 - 4l I/O = neg 1400 Drips: 1/2 ns 70 Pressors: , hemodynamically stable Consultants: Hospital course: (04/08) 76m admitted for Renal stones and UTI and COPD exac. Failed Bipap and intubated 04/09 AC 14 480 30% +3 , PAP 21 04/10 -EXTUBATED , nocturnal BIPAP 04/12-on VT 40 L 40 % , BIPAP at night 04/14 - precedex A/P Acute resp failure with AECOPD 04/10 -EXTUBATED , nocturnal BIPAP - on 4 l NC now - CPM , decrease steroids dose Delirium - - decrease steroids , suggest seroquil , try to wean off precedex Nutritions - not sure if can swallow safely and total PO intake for last 5 days - RN to discuss with bedside MD LRTI - sputum with Stenotrophomonas maltophilia -, ususally MULTI-DRUG RESISTANT ORGANISM -started - BACTRIM 04/11 monitor renal function ( also + ksleb / enterob -was on rocephin) - JUAN ( with mild left hydronephrosis) - Cr slowly improving , HYPERKALEMIA 04/15 - probably due to BACTRIM - follow - if can not swallow will add d5W and follow Kidney stones - CT 04/08 - 2 mm stone in the left distal ureter with very mild left hydronephrosis. - empiric abx, urology AECOPD- -nebs - SM 60 q 6 - to decrease to q12 04/15 (COPD/home O2 4 LPM) Hyperglycemia - with steroids Leukocytosis - improved - possible due to steroids , adjusting avx 04/11 for Stenotrophomonas maltophilia H/O stroke and carotid stenosis - on warfarin - INR 1.3 - on charyl 40 now - ? NEED TO RESUME FULL DOSE at some time ? - as per PCP syncopal episode and tipped over off of the stool - reported without injury - follow Lines : picc (Central Line Necessity Reviewed) Tian: + OG: + LIS Nutrition: to start 04/10 if not extubated Analgesia: Anxiety/ delirium VTE Prophylaxis: charly 40 Stress Ulcer Prophylaxis: stating Pepcid 04/09 - on steroids IV Plans in collaboration with bedside consultants and IM MDs. 9 discussed 04/[address] Ordaz Discussed with RN to reach out if any questions or concerns A total of 28 minutes of critical care time was devoted to this patient today, required to treat and/or prevent further deterioration of critical care condition ( as above) . Sepsis Event Evaluation Height, Weight, BMI Height: 6'.00" Weight: 235lbs. 0.4oz. 85.135614pc; 31.46 BMI Method:Stated Exam Exam Patient acknowledged, consented, and participated in this virtual visit which was conducted using real time audio/video Vital Signs Date Time Temp Pulse Resp B/P (MAP) Pulse Ox O2 Delivery O2 Flow Rate FiO2 04/15/22 09:00 66 15 125/71 96 Nasal Cannula 2.00 04/15/22 08:51 69 128/69 04/15/22 08:50 96 Nasal Cannula 3.00 04/15/22 08:49 Nasal Cannula 2.00 04/15/22 08:00 68 15 130/74 98 NIV Bilevel 25.00 04/15/22 07:58 71 22 98 30.00 04/15/22 07:44 36.2 04/15/22 07:00 67 04/15/22 07:00 66 16 134/86 97 NIV Bilevel 25.00 04/15/22 06:00 65 16 131/75 97 NIV Bilevel 25.00 04/15/22 05:00 69 17 114/65 97 NIV Bilevel 25.00 04/15/22 04:00 67 16 134/78 97 NIV Bilevel 25.00 04/15/22 04:00 96 NIV Bilevel 25 04/15/22 03:00 68 16 135/75 97 NIV Bilevel 25.00 04/15/22 02:05 63 24 96 30.00 04/15/22 02:02 68 129/93 04/15/22 02:00 67 16 129/71 97 NIV Bilevel 25.00 04/15/22 01:00 70 04/15/22 01:00 68 15 134/77 96 NIV Bilevel 25.00 04/15/22 00:00 70 18 130/73 98 NIV Bilevel 25.00 04/14/22 23:59 95 NIV Bilevel 25 04/14/22 23:00 68 22 137/84 98 NIV Bilevel 25.00 04/14/22 22:41 68 27 96 30.00 04/14/22 22:00 69 24 143/83 96 NIV Bilevel 25.00 04/14/22 21:00 77 26 121/61 97 NIV Bilevel 25.00 04/14/22 20:00 73 22 118/70 97 NIV Bilevel 25.00 04/14/22 20:00 96 NIV Bilevel 25 04/14/22 19:03 67 21 93 25.00 04/14/22 19:00 70 04/14/22 19:00 81 17 123/60 94 NIV Bilevel 25.00 04/14/22 18:00 68 26 112/62 94 NIV Bilevel 25.00 04/14/22 17:20 NIV Bilevel 25.00 04/14/22 17:18 70 135/82 04/14/22 17:00 71 28 117/71 97 Nasal Cannula 2.00 04/14/22 16:58 70 21 97 25.00 04/14/22 16:00 71 21 124/64 98 Nasal Cannula 2.00 04/14/22 16:00 94 NIV Bilevel 25 04/14/22 14:42 97 Nasal Cannula 2.00 04/14/22 13:00 69 04/14/22 12:00 96 Nasal Cannula 3.00 04/14/22 11:55 36.2 80 22 147/74 96 04/14/22 11:00 77 21 138/65 96 NIV Bilevel 25.00 04/14/22 10:30 Nasal Cannula 4.00 04/14/22 10:27 92 Vapotherm 15.00 21 I & O 04/15/22 07:00 Intake Total 390 ml Output Total 2450 ml Balance -2060 ml Height & Weight Height: 6'1.00" Weight: 235lbs. 0.4oz. 85.086879fe; 31.46 BMI Method:Stated General Appearance: No Apparent Distress, Obese HEENT: PERRL/EOMI; No Scleral Icterus (L), No Scleral Icterus (R); Other (ecam obscured by BiPAP mask) Neck: No JVD Respiratory: No Respiratory Distress, Decreased Breath Sounds Cardiovascular: Regular Rate, Rhythm, No Murmur Capillary Refill: Less Than 3 Seconds Gastrointestinal: normal bowel sounds, non tender, distended Extremity: Normal Inspection, No Pedal Edema Neurologic/Psychiatric: Alert, Motor Weakness Skin: Normal Color, Warm/Dry Results Lab Laboratory Tests 04/14/22 03:50 04/15/22 03:00 Assessment/Plan Assessment/Plan ` ALFONSO MCCABE MD Apr 15, 2022 10:13
[2022-04-15] MEDS: LORazepam INJ 2 MG/ML (ATIVAN) VIAL IVP PRN ×2 (13:43→19:32)
--- NOTE | 2022-04-15 19:10 | Progress Note - Hospitalist ---
Subjective HPI/CC On Admission Date Seen by Provider: Apr 15, 2022 Time Seen by Provider: 09:45 Patient 76-year-old male with past medical history of COPD with baseline 4 L/min oxygen requirement, CVA, hyperlipidemia who presented to the emergency department due to abdominal pain. He had imaging that revealed multiple kidney stones and they were prepping for discharge as his pain was controlled but he became hypotensive. In review of labs he was found to have a leukocytosis of 18,000 and decision was made to admit for further management. I was called to bedside shortly after arrival to the ICU due to decline in r espiratory status. He is unable to provide me much history and is pulling at his BiPAP. His states that he has known COPD and wears 4 L of oxygen per minute. She states he would be agreeable with intubation if needed. He is unable to provide me any history due to his clinical condition. Subjective/Events-last exam He is sedated. He remains on Precedex. Objective Exam Vital Signs Vital Signs Date Time Temp Pulse Resp B/P (MAP) Pulse Ox O2 Delivery O2 Flow Rate FiO2 04/15/22 17:38 80 145/82 04/15/22 17:00 97 NIV Bilevel 30.00 04/15/22 16:00 04/15/22 15:48 36.0 04/15/22 04:00 25 Capillary Refill : Less Than 3 Seconds General Appearance: No Apparent Distress, Obese Respiratory: Lungs Clear, No Respiratory Distress Cardiovascular: Regular Rate, Rhythm, No Murmur Gastrointestinal: Normal Bowel Sounds, Soft Extremity: Normal Inspection, No Pedal Edema Neurologic/Psychiatric: Other (sedated) Skin: Normal Color, Warm/Dry Results/Procedures Lab Laboratory Tests 04/15/22 03:00 Patient resulted labs reviewed. Imaging: Reviewed Imaging Report Assessment/Plan Assessment and Plan Assess & Plan/Chief Complaint Acute on chronic hypoxic respiratory failure COPD with acute exacerbation Pneumonia Continue steroids MAT Protocol Extubated 04/10 TeleICU following PT/OT Sputum culture with klebsiella and Stenotrophomonas maltophilia s/p Rocephin Continue Bactrim ICU psychosis Increase Risperdal Precedex, wean as able Sepsis- severe POA Nephrolithiasis JUAN s/p Rocephin Urology following HTN BP improved h/o CVA Chronic anticoagulation No deficits on Warfarin at home CT Head negative for acute findings DVT ppx: Lovenox Critical Care Critically Ill Patient Diagnosis/Problems Diagnosis/Problems (1) Acute respiratory failure Status: Acute Qualifiers: Respiratory failure complication: hypoxia Qualified Codes: J96.01 - Acute respiratory failure with hypoxia (2) COPD with acute exacerbation Status: Acute (3) Infection with Stenotrophomonas maltophilia resistant to multiple drugs Status: Acute (4) Delirium Status: Acute ROSIO MAGAÑA MD Apr 15, 2022 19:10
[2022-04-16] MEDS: morphine INJ 4 MG/ML 1 ML (VIAL/SYRINGE) IV PRN ×7 (00:01→20:46)
[2022-04-16] MEDS: inSUlin ASPART (NovoLOG) 1 UNIT/0.01 ML (CHARGE PER UNIT) SC SCH ×4 (00:07→18:30)
[2022-04-16] MEDS: LORazepam INJ 2 MG/ML (ATIVAN) VIAL IVP PRN ×3 (02:38→15:29)
[2022-04-16] MEDS: RT-ALBUTEROL/IPRATROPIUM 3 ML (DUONEB) VIAL INH SCH ×6 (02:59→22:31)
[2022-04-16 03:28] LABS: HEMATOCRIT 29 % (40-54); MEAN CORPUSCULAR VOLUME 98 fL (80-99); MEAN PLATELET VOLUME 12.3 fL (9.0-12.2)
[2022-04-16 03:30] LABS: BASOPHILS # (AUTO) 0.1 10^3/uL (0.0-0.1); BASOPHILS % (AUTO) 1 % (0-10); EOSINOPHILS # (AUTO) 0.1 10^3/uL (0.0-0.3); EOSINOPHILS % (AUTO) 1 % (0-10); HEMOGLOBIN 9.3 g/dL (13.3-17.7); LYMPHOCYTES # (AUTO) 2.3 10^3/uL (1.0-4.0); LYMPHOCYTES % (AUTO) 26 % (12-44); MEAN CORPUSCULAR HEMOGLOBIN 32 pg (25-34); MEAN CORPUSCULAR HGB CONC 32 g/dL (32-36); MONOCYTES # (AUTO) 1.5 10^3/uL (0.0-1.0); MONOCYTES % (AUTO) 17 % (0-12); NEUTROPHILS # (AUTO) 4.4 10^3/uL (1.8-7.8); NEUTROPHILS % (AUTO) 49 % (42-75); PLATELET COUNT 86 10^3/uL (130-400); WHITE BLOOD COUNT 8.8 10^3/uL (4.3-11.0)
[2022-04-16 04:27] LABS: CALCIUM 7.7 MG/DL (8.5-10.1)
[2022-04-16 04:31] LABS: CREATININE SERUM 1.26 MG/DL (0.60-1.30); PHOSPHORUS 4.9 MG/DL (2.3-4.7)
[2022-04-16 04:33] LABS: MAGNESIUM 3.1 MG/DL (1.6-2.4)
[2022-04-16] MEDS: LACTATED RINGERS 1,000 ML IV SCH ×2 (05:12→16:30)
[2022-04-16] MEDS: 1/2 NS IV SOLUTION 1,000 ML IV SCH ×2 (05:13→15:29)
[2022-04-16] MEDS: DexMEDEtomidine 250 ML DRIP 250 ML IV SCH ×2 (05:13→15:29)
[2022-04-16 05:31] LABS: POTASSIUM 6.6 MMOL/L (3.6-5.0)
[2022-04-16] MEDS ORDERED: inSUlin (REGULAR) HUMAN 1 UNIT/0.01 ML (CHARGE PER UNIT) SC ONE (06:00)
[2022-04-16] MEDS ORDERED: inSUlin (REGULAR) HUMAN 1 UNIT/0.01 ML (CHARGE PER UNIT) IV ONE ×2 (06:00→11:45)
[2022-04-16] MEDS ORDERED: SODIUM BICARB 8.4% 50 MEQ/50 ML (ABBOTT) SYR IV ONE ×2 (06:00→11:45)
[2022-04-16] MEDS ORDERED: DEXTROSE 50% 50 ML (IMS) SYR IV ONE ×2 (06:00→11:45)
[2022-04-16] MEDS: MAGNESIUM 1 GM/100 ML IVPB 100 ML IV SCH (06:04)
[2022-04-16] MEDS: POTASSIUM CL 10MEQ/50ML IVPB 50 ML IV SCH (06:04)
[2022-04-16] MEDS: KCL 20 MEQ TAB (K-DUR) PO SCH (06:05)
[2022-04-16] MEDS: risperiDONE 0.25 MG (RisperDAL) TAB PO SCH ×3 (09:00→20:47)
[2022-04-16] MEDS: methylPREDNISolone 125 MG (Solu-MEDROL) VIAL IVP SCH ×2 (09:01→20:45)
[2022-04-16] MEDS: SULFAMETHOXAZOLE/TRIMETHO SUSP 10 ML (BACTRIM) UDC PO SCH (09:01)
[2022-04-16] MEDS: ENOXAPARIN 40 MG/0.4 ML (LOVENOX) SYR SQ SCH (09:01)
[2022-04-16] MEDS: PANTOPRAZOLE 40 MG (PROTONIX) VIAL IV SCH (09:01)
[2022-04-16 09:59] LABS: ABG BASE EXCESS 0.9 MMOL/L (-2.5-2.5); ABG OXYGEN SATURATION 97 % (94-100); ABG PCO2 48 MMHG (35-45); ABG PH 7.35 (7.37-7.43); ABG PO2 79 MMHG (79-93); ABG TCO2 27.6 MMOL/L (21.0-31.0)
[2022-04-16 10:00] LABS: INSPIRED O2 3L / 30%; VENTILATOR NO
[2022-04-16 10:01] LABS: PATIENT TEMP 36.2
--- NOTE | 2022-04-16 10:08 | Diagnostic Imaging Report ---
INDICATION: Hypoxia. TECHNIQUE/COMPARISON: Frontal chest obtained at 9:43 AM and 04/14/2022. FINDINGS: The heart is borderline in size. There is mild central vascular prominence. There is no focal infiltrate, pneumothorax, or pleural fluid. The right-sided PICC line is unchanged. IMPRESSION: No acute change compared with 04/14/2022. No focal infiltrate. Dictated by: Dictated on workstation # [id number]
--- NOTE | 2022-04-16 10:22 | Physical Therapy Progress Note ---
Therapy Progress Note Patient on hold per RN due to current status. Will attempt tomorrow. HERNANDEZ HARRISNO PT Apr 16, 2022 10:22
[2022-04-16] MEDS: LEVOFLOXACIN 750 MG/D5W 150 ML PRE-MIX IV SCH (10:30)
--- NOTE | 2022-04-16 10:57 | Speech Therapy Progress Note ---
Therapy Progress Note ST attempted skilled dysphagia treatment at 1056. At this time, the patient is on HOLD. ST will re-attempt as the patient is appropriate. LISETTE GREENWOOD Apr 16, 2022 10:57
[2022-04-16 11:06] LABS: CREATININE SERUM 1.17 MG/DL (0.60-1.30)
--- NOTE | 2022-04-16 12:19 | Tele-ICU Progress Note ---
Subjective Date Seen by a Provider: Apr 16, 2022 Time Seen by a Provider: 10:00 Subjective/Events-last exam (Tele-ICU Physician , Progress Note ) Available chart/ vitals / labs / Images reviewed Video assessment done using teleICU camera, rest of exam as per RN Discussed with RN , EXAM PER RN Events overnight : hypertensive Afebrile FiO2 - 3l I/O = neg 400 Drips: 1/2 ns 70 Pressors: , hemodynamically stable Consultants: Hospital course: (04/08) 76m admitted for Renal stones and UTI and COPD exac. Failed Bipap and intubated 04/09 AC 14 480 30% +3 , PAP 21 04/10 -EXTUBATED , nocturnal BIPAP 04/12-on VT 40 L 40 % , BIPAP at night 04/14 - precedex 04/16- moaning , precedex 1.0 A/P Acute resp failure with AECOPD 04/10 -EXTUBATED , nocturnal BIPAP - on 4 l NC now - CPM , decrease steroids dose 04/15 - to cont to taper down Delirium - - decrease steroids , suggest seroquil , try to wean off precedex Nutritions - not sure if can swallow safely and total PO intake for last 5 days - RN to discuss with bedside MD LRTI - sputum with Stenotrophomonas maltophilia -, ususally MULTI-DRUG RESISTANT ORGANISM -started - BACTRIM 04/11 - > discussed woth pharmacy -to levofloxacin 04/16 due to hyperkaelmia ( also + ksleb / enterob -was on rocephin) hyperkalemia 6.6 om 04/16 - tx , follow levels - - presumed due to bactrim -stooped JUAN ( with mild left hydronephrosis) - Cr slowly improving , HYPERKALEMIA 04/15 - probably due to BACTRIM - follow - if can not swallow will add d5W and follow Kidney stones - CT 04/08 - 2 mm stone in the left distal ureter with very mild left hydronephrosis. - empiric abx, urology AECOPD- -nebs - SM 60 q 6 - to decrease to q12 04/15 (COPD/home O2 4 LPM) Hyperglycemia - with steroids Leukocytosis - improved - possible due to steroids , adjusting avx 04/11 for Stenotrophomonas maltophilia H/O stroke and carotid stenosis - on warfarin - INR 1.3 - on charly 40 now - ? NEED TO RESUME FULL DOSE at some time ? - as per PCP syncopal episode and tipped over off of the stool - reported without injury - follow Lines : picc (Central Line Necessity Reviewed) Tian: + OG: + LIS Nutrition: to start 04/10 if not extubated Analgesia: Anxiety/ delirium VTE Prophylaxis: charly 40 Stress Ulcer Prophylaxis: stating Pepcid 04/09 - on steroids IV Plans in collaboration with bedside consultants and IM MDs. 9 discussed 04/[address] Ordaz Discussed with RN to reach out if any questions or concerns A total of 32 minutes of critical care time was devoted to this patient today, required to treat and/or prevent further deterioration of critical care condition ( as above) . Sepsis Event Evaluation Height, Weight, BMI Height: 6'1.00" Weight: 235lbs. 0.4oz. 85.211984wy; 31.46 BMI Method:Stated Exam Exam Patient acknowledged, consented, and participated in this virtual visit which was conducted using real time audio/video Vital Signs Date Time Temp Pulse Resp B/P (MAP) Pulse Ox O2 Delivery O2 Flow Rate FiO2 04/16/22 11:00 70 12 126/65 97 High Flow N/C 3.00 04/16/22 10:25 97 Nasal Cannula 2.00 04/16/22 10:00 71 11 113/69 95 High Flow N/C 3.00 04/16/22 09:00 83 17 170/77 98 High Flow N/C 3.00 04/16/22 08:00 36.2 66 13 116/70 96 High Flow N/C 3.00 04/16/22 07:22 35.9 66 12 130/68 99 High Flow N/C 3.00 04/16/22 07:02 96 Nasal Cannula 2.00 04/16/22 07:00 71 04/16/22 07:00 69 11 130/70 96 High Flow N/C 3.00 04/16/22 06:00 66 13 140/73 96 High Flow N/C 3.00 04/16/22 06:00 68 11 138/69 96 High Flow N/C 3.00 04/16/22 05:13 71 133/71 04/16/22 05:00 68 11 138/69 96 High Flow N/C 3.00 04/16/22 04:00 71 12 133/71 95 High Flow N/C 3.00 04/16/22 04:00 97 Nasal Cannula 3.00 04/16/22 03:03 97 Nasal Cannula 2.00 04/16/22 03:00 71 12 129/68 97 High Flow N/C 3.00 04/16/22 02:00 70 12 118/69 95 High Flow N/C 3.00 04/16/22 01:00 72 04/16/22 01:00 72 12 136/68 95 High Flow N/C 3.00 04/16/22 00:00 36.3 04/16/22 00:00 70 14 131/65 95 High Flow N/C 3.00 04/15/22 23:59 97 Nasal Cannula 3.00 04/15/22 23:17 95 Nasal Cannula 2.00 04/15/22 23:00 71 16 138/73 95 High Flow N/C 3.00 04/15/22 22:00 73 14 130/79 95 High Flow N/C 3.00 04/15/22 21:00 75 15 132/62 94 High Flow N/C 3.00 04/15/22 20:00 36.3 04/15/22 20:00 75 15 129/62 94 High Flow N/C 3.00 04/15/22 20:00 97 Nasal Cannula 3.00 04/15/22 19:06 95 Nasal Cannula 2.00 04/15/22 19:00 85 04/15/22 19:00 85 126/58 94 High Flow N/C 3.00 04/15/22 17:38 80 145/82 04/15/22 17:00 77 153/87 97 NIV Bilevel 30.00 04/15/22 16:00 96 Nasal Cannula 3.00 04/15/22 16:00 89 129/68 94 NIV Bilevel 30.00 04/15/22 15:48 36.0 04/15/22 15:27 97 NIV Bilevel 30.00 04/15/22 14:48 96 Nasal Cannula 2.00 04/15/22 14:00 72 22 134/69 97 Nasal Cannula 2.00 04/15/22 13:00 72 04/15/22 13:00 74 19 132/76 97 Nasal Cannula 2.00 I & O 04/16/22 07:00 Intake Total 1400 ml Output Total 1775 ml Balance -375 ml Height & Weight Height: 6'1.00" Weight: 235lbs. 0.4oz. 85.448189su; 31.46 BMI Method:Stated General Appearance: No Apparent Distress, Obese HEENT: PERRL/EOMI; No Scleral Icterus (L), No Scleral Icterus (R); Other (ecam obscured by BiPAP mask) Neck: No JVD Respiratory: Lungs Clear, No Respiratory Distress Cardiovascular: Regular Rate, Rhythm, No Murmur Capillary Refill: Less Than 3 Seconds Gastrointestinal: normal bowel sounds, non tender, distended Extremity: Normal Inspection, No Pedal Edema Neurologic/Psychiatric: Other (sedated) Skin: Normal Color, Warm/Dry Results Lab Laboratory Tests 04/15/22 03:00 04/16/22 03:25 04/16/22 10:40 Assessment/Plan Assessment/Plan ` ALFONSO MCCABE MD Apr 16, 2022 12:19
--- NOTE | 2022-04-16 14:18 | Occ Therapy Progress Note ---
Therapy Progress Note Patient on hold per RN due to current status. Will attempt tomorrow. ANNIE FRIEND Apr 16, 2022 14:18
[2022-04-16 18:53] LABS: POTASSIUM 4.6 MMOL/L (3.6-5.0)
[2022-04-16 18:58] LABS: CREATININE SERUM 0.75 MG/DL (0.60-1.30)
--- NOTE | 2022-04-16 19:48 | Progress Note - Hospitalist ---
Subjective HPI/CC On Admission Date Seen by Provider: Apr 16, 2022 Time Seen by Provider: 09:45 Patient 76-year-old male with past medical history of COPD with baseline 4 L/min oxygen requirement, CVA, hyperlipidemia who presented to the emergency department due to abdominal pain. He had imaging that revealed multiple kidney stones and they were prepping for discharge as his pain was controlled but he became hypotensive. In review of labs he was found to have a leukocytosis of 18,000 and decision was made to admit for further management. I was called to bedside shortly after arrival to the ICU due to decline in r espiratory status. He is unable to provide me much history and is pulling at his BiPAP. His states that he has known COPD and wears 4 L of oxygen per minute. She states he would be agreeable with intubation if needed. He is unable to provide me any history due to his clinical condition. Subjective/Events-last exam He remains sedated. He does not respond to verbal stimuli. He moans to physical stimuli. I spoke with his daughter about LTAC and she planned to discuss this with her mother. Objective Exam Vital Signs Vital Signs Date Time Temp Pulse Resp B/P (MAP) Pulse Ox O2 Delivery O2 Flow Rate FiO2 04/16/22 19:40 36.5 04/16/22 18:23 97 Nasal Cannula 2.00 04/16/22 18:00 70 15 138/70 04/15/22 04:00 25 Capillary Refill : Less Than 3 Seconds General Appearance: Mild Distress (uncomfortable), Obese Respiratory: No Accessory Muscle Use, No Respiratory Distress, Decreased Breath Sounds Cardiovascular: Regular Rate, Rhythm, No Murmur Gastrointestinal: Normal Bowel Sounds, Soft Extremity: Normal Inspection, Pedal Edema Neurologic/Psychiatric: Disoriented, Other (sedated) Skin: Normal Color, Warm/Dry Results/Procedures Lab Laboratory Tests 04/16/22 03:25 04/16/22 10:40 04/16/22 18:30 Patient resulted labs reviewed. Imaging: Reviewed Imaging Report Assessment/Plan Assessment and Plan Assess & Plan/Chief Complaint Acute on chronic hypoxic respiratory failure COPD with acute exacerbation Pneumonia Continue steroids MAT Protocol Extubated 04/10 TeleICU following PT/OT Sputum culture with klebsiella and Stenotrophomonas maltophilia s/p Rocephin Transitioned to Levaquin due to hyperkalemia ICU psychosis Risperdal Precedex, wean as able [place] referral Sepsis- severe POA Nephrolithiasis JUAN s/p Rocephin Urology following HTN BP improved h/o CVA Chronic anticoagulation No deficits on Warfarin at home CT Head negative for acute findings DVT ppx: Lovenox Critical Care Critically Ill Patient Diagnosis/Problems Diagnosis/Problems (1) Acute respiratory failure Status: Acute Qualifiers: Respiratory failure complication: hypoxia Qualified Codes: J96.01 - Acute respiratory failure with hypoxia (2) COPD with acute exacerbation Status: Acute (3) Infection with Stenotrophomonas maltophilia resistant to multiple drugs Status: Acute (4) Delirium Status: Acute (5) Hospital psychosis Status: Acute ROSIO MAGAÑA MD Apr 16, 2022 19:48
[2022-04-16] MEDS: ONDANSETRON 4 MG/2 ML (SDV) Z0FRAN IV PRN (20:45)
[2022-04-16] MEDS: LABETALOL HCL 20 MG/4 ML VIAL IV PRN (20:52)
[2022-04-17] MEDS: inSUlin ASPART (NovoLOG) 1 UNIT/0.01 ML (CHARGE PER UNIT) SC SCH ×4 (00:20→17:55)
[2022-04-17] MEDS: DexMEDEtomidine 250 ML DRIP 250 ML IV SCH ×3 (00:23→17:39)
[2022-04-17] MEDS: morphine INJ 4 MG/ML 1 ML (VIAL/SYRINGE) IV PRN ×6 (01:17→22:42)
[2022-04-17] MEDS: LORazepam INJ 2 MG/ML (ATIVAN) VIAL IVP PRN ×3 (01:17→20:50)
[2022-04-17] MEDS: 1/2 NS IV SOLUTION 1,000 ML IV SCH ×3 (01:37→22:43)
[2022-04-17] MEDS: hydrALAZINE (APESOLINE) 20 MG/ML VIAL IV PRN (01:38)
[2022-04-17] MEDS: RT-ALBUTEROL/IPRATROPIUM 3 ML (DUONEB) VIAL INH SCH ×6 (02:08→22:16)
[2022-04-17] MEDS: ONDANSETRON 4 MG/2 ML (SDV) Z0FRAN IV PRN (03:10)
[2022-04-17 03:53] LABS: EOSINOPHILS % (AUTO) 0 % (0-10); HEMOGLOBIN 10.8 g/dL (13.3-17.7)
[2022-04-17 03:55] LABS: BASOPHILS % (AUTO) 0 % (0-10); HEMATOCRIT 35 % (40-54); LYMPHOCYTES # (AUTO) 0.4 10^3/uL (1.0-4.0); LYMPHOCYTES % (AUTO) 3 % (12-44); MEAN CORPUSCULAR HEMOGLOBIN 31 pg (25-34); MEAN CORPUSCULAR HGB CONC 31 g/dL (32-36); MEAN CORPUSCULAR VOLUME 103 fL (80-99); MEAN PLATELET VOLUME 12.4 fL (9.0-12.2); MONOCYTES # (AUTO) 0.6 10^3/uL (0.0-1.0); MONOCYTES % (AUTO) 4 % (0-12); NEUTROPHILS # (AUTO) 12.6 10^3/uL (1.8-7.8); NEUTROPHILS % (AUTO) 88 % (42-75); PLATELET COUNT 133 10^3/uL (130-400); WHITE BLOOD COUNT 14.3 10^3/uL (4.3-11.0)
[2022-04-17] MEDS: POTASSIUM CL 10MEQ/50ML IVPB 50 ML IV SCH (04:42)
[2022-04-17] MEDS: KCL 20 MEQ TAB (K-DUR) PO SCH (04:43)
[2022-04-17] MEDS: MAGNESIUM 1 GM/100 ML IVPB 100 ML IV SCH (04:43)
[2022-04-17] MEDS: LACTATED RINGERS 1,000 ML IV SCH ×2 (06:09→20:21)
[2022-04-17 07:09] LABS: CALCIUM 7.5 MG/DL (8.5-10.1)
[2022-04-17 07:13] LABS: CREATININE SERUM 1.02 MG/DL (0.60-1.30)
[2022-04-17 07:19] LABS: POTASSIUM 6.7 MMOL/L (3.6-5.0)
[2022-04-17] MEDS ORDERED: inSUlin (REGULAR) HUMAN 1 UNIT/0.01 ML (CHARGE PER UNIT) IV ONE ×2 (07:45→21:45)
[2022-04-17] MEDS ORDERED: SODIUM BICARB 8.4% 50 MEQ/50 ML (ABBOTT) SYR IV ONE (07:45)
[2022-04-17] MEDS ORDERED: CALC GLUC 1 GM/100 ML IVPB 100 ML IV ONE (07:45)
[2022-04-17] MEDS ORDERED: DEXTROSE 50% 50 ML (IMS) SYR IV ONE ×2 (07:45→21:45)
[2022-04-17] MEDS ORDERED: SODIUM POLYSTYRENE POWDER 15 GM BOTTLE PO ONE (07:45)
[2022-04-17] MEDS: PANTOPRAZOLE 40 MG (PROTONIX) VIAL IV SCH (08:26)
[2022-04-17] MEDS: ENOXAPARIN 40 MG/0.4 ML (LOVENOX) SYR SQ SCH (08:26)
[2022-04-17] MEDS: methylPREDNISolone 125 MG (Solu-MEDROL) VIAL IVP SCH (08:27)
[2022-04-17] MEDS: risperiDONE 0.25 MG (RisperDAL) TAB PO SCH ×3 (09:50→20:20)
--- NOTE | 2022-04-17 10:51 | Diagnostic Imaging Report ---
EXAMINATION: Chest, 1 view. HISTORY: Evaluate NG tube placement. COMPARISON: 04/16/2022. FINDINGS: An enteric tube is visualized with the tip deviating right of midline and terminating in the right lung base. Stable right PICC. Stable prominent cardiac silhouette with central pulmonary vascular congestion. No focal consolidation. No pleural effusion or pneumothorax. IMPRESSION: 1. Enteric tube deviating to the right of midline with the tip overlying the right lung base. This is concerning for tracheal placement of the enteric tube. Recommend removing and replacing the enteric tube. 2. Stable cardiomegaly with central pulmonary vascular congestion. 3. The report was called to the patient's nurse Reba by [email or web address]@10:51 AM. Dictated by: Dictated on workstation # [id number]
--- NOTE | 2022-04-17 11:38 | Diagnostic Imaging Report ---
CLINICAL INDICATION: Patient with NG tube repositioning. Patient with history of hypoxia. EXAM: Portable chest x-ray, upright view. COMPARISON: Chest x-ray dated 04/17/2022 at 1023 hours. FINDINGS AND IMPRESSION: 1: There is interval repositioning and advancement of the nasogastric tube with proximal port now overlying the expected region of the gastric fundus, which is in good position. 2: The remainder of this exam shows no other significant interval change. Dictated by: Dictated on workstation # [id number]
[2022-04-17] MEDS ORDERED: ACETAMINOPHEN 500 MG TAB (TYLENOL) PEG PRN (11:45)
--- NOTE | 2022-04-17 11:58 | Tele-ICU Progress Note ---
Subjective Date Seen by a Provider: Apr 17, 2022 Time Seen by a Provider: 11:57 Subjective/Events-last exam (Tele-ICU Physician , Progress Note ) Available chart/ vitals / labs / Images reviewed Video assessment done using teleICU camera, rest of exam as per RN Discussed with RN , EXAM PER RN Events overnight : hypertensive Afebrile FiO2 - 3l I/O = neg 1999 Drips: 1/2 100 Pressors: , hemodynamically stable Consultants: Hospital course: (04/08) 76m admitted for Renal stones and UTI and COPD exac. Failed Bipap and intubated 04/09 AC 14 480 30% +3 , PAP 21 04/10 -EXTUBATED , nocturnal BIPAP 04/12-on VT 40 L 40 % , BIPAP at night 04/14 - precedex 04/16- moaning , precedex 1.0 A/P Acute resp failure with AECOPD 04/10 -EXTUBATED , nocturnal BIPAP - on 4 l NC now - CPM , decrease steroids dose 04/15 - to cont to taper down Delirium - - decrease steroids , suggest seroquil , try to wean off precedex - with Ng in place -antipsychotics 04/17 Nutritions - NG to be placed 04/17 - start TF LRTI - sputum with Stenotrophomonas maltophilia -, ususally MULTI-DRUG RESISTANT ORGANISM -started - BACTRIM 04/11 - > discussed woth pharmacy -to levofloxacin 04/16 due to hyperkaelmia ( also + ksleb / enterob -was on rocephin) - secretions succtioned , nebs hyperkalemia 04/16 /04/17 - tx today agin , follow levels - - presumed due to bactrim -stopped 04/16 JUAN ( with mild left hydronephrosis) - resolved - HYPERKALEMIA 04/15 - probably due to BACTRIM - follow - if can not swallow will add d5W and follow Kidney stones - CT 04/08 - 2 mm stone in the left distal ureter with very mild left hydronephrosis. - empiric abx, urology AECOPD- -nebs - SM 60 q 6 - to decrease to q12 04/15 - 04/17 decreadst yp 40 bid (COPD/home O2 4 LPM) Hyperglycemia -ISS Leukocytosis - adjusting avx 6/15 for Stenotrophomonas maltophilia- changed to levofloxacin 04/16 - follow H/O stroke and carotid stenosis - on warfarin - INR 1.3 - on charly 40 now - ? NEED TO RESUME FULL DOSE at some time ? - as per PCP syncopal episode and tipped over off of the stool - reported without injury - follow Lines : picc (Central Line Necessity Reviewed) Tian: + OG: + LIS Nutrition: to start 04/17 Analgesia: Anxiety/ delirium VTE Prophylaxis: charly 40 Stress Ulcer Prophylaxis:ppi Plans in collaboration with bedside consultants and IM MDs. Discussed with RN to reach out if any questions or concerns A total of 32 minutes of critical care time was devoted to this patient today, required to treat and/or prevent further deterioration of critical care condition ( as above) . Sepsis Event Evaluation Height, Weight, BMI Height: 6'1.00" Weight: 235lbs. 0.4oz. 85.083813ew; 31.46 BMI Method:Stated Exam Exam Patient acknowledged, consented, and participated in this virtual visit which was conducted using real time audio/video Vital Signs Date Time Temp Pulse Resp B/P (MAP) Pulse Ox O2 Delivery O2 Flow Rate FiO2 04/17/22 11:38 36.4 04/17/22 10:53 96 Nasal Cannula 2.00 04/17/22 10:00 50 110/72 98 High Flow N/C 3.00 04/17/22 09:00 54 22 116/61 97 High Flow N/C 3.00 04/17/22 08:24 63 147/77 04/17/22 08:00 58 12 138/82 99 High Flow N/C 3.00 04/17/22 08:00 58 04/17/22 07:53 36.2 04/17/22 07:00 58 26 134/66 98 High Flow N/C 3.00 04/17/22 06:34 98 Nasal Cannula 2.00 04/17/22 06:00 63 12 147/77 96 High Flow N/C 3.00 04/17/22 05:00 64 30 134/69 97 High Flow N/C 3.00 04/17/22 04:08 36.4 04/17/22 04:06 97 Nasal Cannula 3.00 04/17/22 04:00 65 11 122/72 96 High Flow N/C 3.00 04/17/22 03:00 67 10 145/69 97 High Flow N/C 3.00 04/17/22 02:49 69 155/71 04/17/22 02:09 97 Nasal Cannula 2.00 04/17/22 02:00 66 31 132/62 96 High Flow N/C 3.00 04/17/22 01:00 67 14 148/74 97 High Flow N/C 3.00 04/17/22 01:00 67 04/17/22 00:24 97 Nasal Cannula 3.00 04/17/22 00:23 65 132/71 04/17/22 00:00 67 14 156/77 97 High Flow N/C 3.00 04/17/22 00:00 36.8 04/16/22 23:00 67 26 141/74 98 High Flow N/C 3.00 04/16/22 22:31 97 Nasal Cannula 2.00 04/16/22 22:00 71 13 160/72 99 High Flow N/C 3.00 04/16/22 21:00 70 13 155/84 96 High Flow N/C 3.00 04/16/22 20:55 79 192/85 04/16/22 20:40 95 Nasal Cannula 3.00 04/16/22 20:00 81 17 182/88 97 High Flow N/C 3.00 04/16/22 19:40 36.5 04/16/22 19:00 80 15 148/70 97 High Flow N/C 3.00 04/16/22 19:00 80 04/16/22 18:23 97 Nasal Cannula 2.00 04/16/22 18:00 70 15 138/70 97 High Flow N/C 3.00 04/16/22 17:00 64 185/85 97 High Flow N/C 3.00 04/16/22 16:00 65 141/79 95 High Flow N/C 3.00 04/16/22 16:00 95 Nasal Cannula 3.00 04/16/22 15:29 70 126/66 04/16/22 15:28 36.1 04/16/22 15:00 67 130/63 97 High Flow N/C 3.00 04/16/22 14:44 96 Nasal Cannula 2.00 04/16/22 14:00 70 33 126/66 95 High Flow N/C 3.00 04/16/22 13:00 78 11 137/66 96 High Flow N/C 3.00 04/16/22 12:51 80 04/16/22 12:00 97 Nasal Cannula 3.00 04/16/22 12:00 35.7 04/16/22 12:00 72 11 147/78 95 High Flow N/C 3.00 I & O 04/17/22 07:00 Intake Total 1008 ml Output Total 2425 ml Balance -1417 ml Height & Weight Height: 6'1.00" Weight: 235lbs. 0.4oz. 85.501165bt; 31.46 BMI Method:Stated General Appearance: Mild Distress (uncomfortable), Obese HEENT: PERRL/EOMI; No Scleral Icterus (L), No Scleral Icterus (R); Other (ecam obscured by BiPAP mask) Neck: No JVD Respiratory: No Accessory Muscle Use, No Respiratory Distress, Decreased Breath Sounds Cardiovascular: Regular Rate, Rhythm, No Murmur Capillary Refill: Less Than 3 Seconds Gastrointestinal: normal bowel sounds, non tender, distended Extremity: Normal Inspection, Pedal Edema Neurologic/Psychiatric: Disoriented, Other (sedated) Skin: Normal Color, Warm/Dry Results Lab Laboratory Tests 04/16/22 03:25 04/16/22 10:40 04/16/22 18:30 04/17/22 03:15 04/17/22 06:53 Assessment/Plan Assessment/Plan 1 ALFONSO MCCABE MD Apr 17, 2022 11:58
[2022-04-17] MEDS: LEVOFLOXACIN 750 MG/D5W 150 ML PRE-MIX IV SCH (12:27)
--- NOTE | 2022-04-17 14:02 | Occ Therapy Progress Note ---
Therapy Progress Note Sedation increased due to pt agitation. Pt unable to participate in skilled therapy due to lethargy and would increase agitation. Hold pt today, will continue to monitor pt status. ANNIE FRIEND Apr 17, 2022 14:02
--- NOTE | 2022-04-17 14:23 | Physical Therapy Progress Note ---
Therapy Progress Note Per OT note, Sedation increased due to pt agitation. Pt unable to participate in skilled therapy due to lethargy and would increase agitation. Hold pt today, will continue to monitor pt status. HERNANDEZ HARRISON PT Apr 17, 2022 14:23
[2022-04-17 15:50] LABS: POTASSIUM 4.6 MMOL/L (3.6-5.0)
[2022-04-17 15:56] LABS: CREATININE SERUM 0.63 MG/DL (0.60-1.30)
[2022-04-17 16:17] LABS: CALCIUM 5.8 MG/DL (8.5-10.1)
--- NOTE | 2022-04-17 17:50 | Progress Note - Hospitalist ---
Subjective HPI/CC On Admission Date Seen by Provider: Apr 17, 2022 Time Seen by Provider: 09:25 Patient 76-year-old male with past medical history of COPD with baseline 4 L/min oxygen requirement, CVA, hyperlipidemia who presented to the emergency department due to abdominal pain. He had imaging that revealed multiple kidney stones and they were prepping for discharge as his pain was controlled but he became hypotensive. In review of labs he was found to have a leukocytosis of 18,000 and decision was made to admit for further management. I was called to bedside shortly after arrival to the ICU due to decline in r espiratory status. He is unable to provide me much history and is pulling at his BiPAP. His states that he has known COPD and wears 4 L of oxygen per minute. She states he would be agreeable with intubation if needed. He is unable to provide me any history due to his clinical condition. Subjective/Events-last exam He remains sedated. He wakes up a bit. He is not able to communicate without dozing off. Objective Exam Vital Signs Vital Signs Date Time Temp Pulse Resp B/P (MAP) Pulse Ox O2 Delivery O2 Flow Rate FiO2 04/17/22 17:00 49 12 159/78 98 High Flow N/C 3.00 04/17/22 16:00 36.1 04/15/22 04:00 25 Capillary Refill : Less Than 3 Seconds General Appearance: No Apparent Distress, Obese Respiratory: No Respiratory Distress, Decreased Breath Sounds, Rhonci, Wheezing Cardiovascular: Regular Rate, Rhythm, No Murmur Gastrointestinal: Normal Bowel Sounds, Soft Extremity: Normal Inspection, Pedal Edema Neurologic/Psychiatric: Other (sedated) Skin: Normal Color, Warm/Dry Results/Procedures Lab Laboratory Tests 04/16/22 18:30 04/17/22 03:15 04/17/22 06:53 04/17/22 15:30 Patient resulted labs reviewed. Imaging: Reviewed Imaging Report Assessment/Plan Assessment and Plan Assess & Plan/Chief Complaint Acute on chronic hypoxic respiratory failure COPD with acute exacerbation Pneumonia Hyperkalemia Continue steroids MAT Protocol Extubated 04/10 TeleICU following PT/OT Sputum culture with klebsiella and Stenotrophomonas maltophilia s/p Rocephin Transitioned to Levaquin due to hyperkalemia ICU psychosis Risperdal Precedex, wean as able [place] referral Sepsis- severe POA Nephrolithiasis JUAN s/p Rocephin Urology following HTN BP improved h/o CVA Chronic anticoagulation No deficits on Warfarin at home CT Head negative for acute findings DVT ppx: Lovenox Critical Care Critically Ill Patient Diagnosis/Problems Diagnosis/Problems (1) Acute respiratory failure Status: Acute Qualifiers: Respiratory failure complication: hypoxia Qualified Codes: J96.01 - Acute respiratory failure with hypoxia (2) COPD with acute exacerbation Status: Acute (3) Infection with Stenotrophomonas maltophilia resistant to multiple drugs Status: Acute (4) Delirium Status: Acute (5) Hospital psychosis Status: Acute ROSIO MAGAÑA MD Apr 17, 2022 17:50
[2022-04-17] MEDS: methylPREDNISolone 40 MG/ML (Solu-MEDROL) VIAL IV SCH (20:20)
[2022-04-17 20:57] LABS: ALBUMIN 3.1 GM/DL (3.2-4.5)
[2022-04-17] MEDS ORDERED: methylPREDNISolone 125 MG (Solu-MEDROL) VIAL IVP SCH (21:00)
[2022-04-17 21:03] LABS: CREATININE SERUM 0.87 MG/DL (0.60-1.30)
[2022-04-17] MEDS ORDERED: SODIUM POLYSTYRENE POWDER 15 GM BOTTLE PR ONE (21:45)
[2022-04-17] MEDS ORDERED: CALC GLUC 1 GM/100 ML IVPB 100 ML IV SCH (21:45)
[2022-04-17] MEDS ORDERED: SODIUM POLYSTYRENE POWDER 15 GM BOTTLE ONE (22:40)
[2022-04-18] MEDS: DexMEDEtomidine 250 ML DRIP 250 ML IV SCH ×4 (01:44→22:12)
[2022-04-18] MEDS: RT-ALBUTEROL/IPRATROPIUM 3 ML (DUONEB) VIAL INH SCH ×6 (02:30→22:49)
[2022-04-18] MEDS: LORazepam INJ 2 MG/ML (ATIVAN) VIAL IVP PRN ×4 (03:31→22:13)
[2022-04-18 05:39] LABS: CALCIUM 7.3 MG/DL (8.5-10.1)
[2022-04-18 05:43] LABS: CREATININE SERUM 0.78 MG/DL (0.60-1.30)
[2022-04-18 05:48] LABS: POTASSIUM 6.5 MMOL/L (3.6-5.0)
[2022-04-18] MEDS: inSUlin ASPART (NovoLOG) 1 UNIT/0.01 ML (CHARGE PER UNIT) SC SCH ×4 (05:49→17:39)
[2022-04-18] MEDS: POTASSIUM CL 10MEQ/50ML IVPB 50 ML IV SCH (05:50)
[2022-04-18] MEDS: KCL 20 MEQ TAB (K-DUR) PO SCH (05:50)
[2022-04-18 06:01] LABS: BASOPHILS % (AUTO) 0 % (0-10); EOSINOPHILS % (AUTO) 0 % (0-10); HEMATOCRIT 33 % (40-54); HEMOGLOBIN 10.5 g/dL (13.3-17.7); LYMPHOCYTES # (AUTO) 0.4 10^3/uL (1.0-4.0); LYMPHOCYTES % (AUTO) 3 % (12-44); MEAN CORPUSCULAR HEMOGLOBIN 32 pg (25-34); MEAN CORPUSCULAR HGB CONC 32 g/dL (32-36); MEAN CORPUSCULAR VOLUME 99 fL (80-99); MEAN PLATELET VOLUME 12.2 fL (9.0-12.2); MONOCYTES % (AUTO) 6 % (0-12); NEUTROPHILS # (AUTO) 13.9 10^3/uL (1.8-7.8); NEUTROPHILS % (AUTO) 88 % (42-75); PLATELET COUNT 120 10^3/uL (130-400); WHITE BLOOD COUNT 15.8 10^3/uL (4.3-11.0)
--- NOTE | 2022-04-18 06:14 | Progress Note ---
Standard Progress Note Progress Notes/Assess & Plan Date Seen by a Provider: Apr 18, 2022 Time Seen by a Provider: 06:13 Progress/Assessment & Plan potassium 6.5, has been high, will give D50W, IV NaHCO3 10 unite of regular insulin IV MD MICHAEL Cheema JOSEPH K MD Apr 18, 2022 06:14
[2022-04-18] MEDS ORDERED: inSUlin (REGULAR) HUMAN 1 UNIT/0.01 ML (CHARGE PER UNIT) IV ONE ×2 (06:15→14:30)
[2022-04-18] MEDS ORDERED: DEXTROSE 50% 50 ML (IMS) SYR IV ONE ×2 (06:30→14:30)
[2022-04-18] MEDS ORDERED: SODIUM BICARB 8.4% 50 MEQ/50 ML (ABBOTT) SYR IV ONE ×2 (06:30→14:30)
[2022-04-18 06:51] LABS: PHOSPHORUS 3.8 MG/DL (2.3-4.7)
[2022-04-18 06:53] LABS: MAGNESIUM 2.2 MG/DL (1.6-2.4)
[2022-04-18] MEDS: MAGNESIUM 1 GM/100 ML IVPB 100 ML IV SCH (06:57)
[2022-04-18] MEDS: 1/2 NS IV SOLUTION 1,000 ML IV SCH ×2 (07:43→19:35)
[2022-04-18] MEDS: morphine INJ 4 MG/ML 1 ML (VIAL/SYRINGE) IV PRN ×6 (07:44→22:13)
[2022-04-18] MEDS: methylPREDNISolone 40 MG/ML (Solu-MEDROL) VIAL IV SCH (07:45)
[2022-04-18] MEDS: risperiDONE 0.25 MG (RisperDAL) TAB PO SCH ×2 (07:45→20:47)
[2022-04-18] MEDS: PANTOPRAZOLE 40 MG (PROTONIX) VIAL IV SCH (07:45)
[2022-04-18] MEDS: ENOXAPARIN 40 MG/0.4 ML (LOVENOX) SYR SQ SCH (07:45)
--- NOTE | 2022-04-18 09:31 | Physical Therapy Progress Note ---
Therapy Progress Note Per nurse, Sedation increased due to pt agitation. Pt unable to participate in skilled therapy due to lethargy and would increase agitation. Hold pt today, will continue to monitor pt status. PRITI MATUTE PT Apr 18, 2022 09:31
[2022-04-18] MEDS: hydrALAZINE (APESOLINE) 20 MG/ML VIAL IV PRN (10:01)
--- NOTE | 2022-04-18 10:28 | Speech Therapy Progress Note ---
Therapy Progress Note The patient remains on HOLD at this time due to increased agitation and lethargy. The patient is currently receiving nutrition, hydration, and medication via NGT and is NPO. The clinician will continue to monitor the patient and re-introduce P.O. bolus trials when appropriate. LISETTE GREENWOOD 22, 2022 10:28
[2022-04-18] MEDS: LEVOFLOXACIN 750 MG/D5W 150 ML PRE-MIX IV SCH (10:43)
--- NOTE | 2022-04-18 11:38 | Tele-ICU Progress Note ---
Subjective Date Seen by a Provider: Apr 18, 2022 Time Seen by a Provider: 11:37 Subjective/Events-last exam (Tele-ICU Physician , Progress Note ) Available chart/ vitals / labs / Images reviewed Video assessment done using teleICU camera, rest of exam as per RN Discussed with RN , EXAM PER RN Events overnight : hypertensive Afebrile FiO2 - 2L I/O = neg 1300 Drips: 1/2 100 Pressors: , hemodynamically stable Consultants: Hospital course: (04/08) 76m admitted for Renal stones and UTI and COPD exac. Failed Bipap and intubated 04/09 AC 14 480 30% +3 , PAP 21 04/10 -EXTUBATED , nocturnal BIPAP 04/12-on VT 40 L 40 % , BIPAP at night 04/14 - precedex 04/16- moaning , precedex 1.0 04/17 - precedex 1 , NG placed - TF started, started Resperidone 0.5 bid 04/18- Precedex 1.0 A/P Acute resp failure with AECOPD 04/10 -EXTUBATED - nocturnal BIPAP PRN - not used last 24 h - on 4 l NC now - CPM , decrease steroids dose 04/15 - to cont to taper down Delirium - decrease steroids , suggest seroquil , try to wean off precedex - with Ng in place - 04/17 Resperidone 0.5 bid hyperkalemia 04/16 /04/17 - tx today agin , received - - presumed due to bactrim -stopped 04/16 - check CPK today too JUAN ( with mild left hydronephrosis) - resolved Kidney stones - CT 04/08 - 2 mm stone in the left distal ureter with very mild left hydronephrosis. - empiric abx, urology AECOPD- -nebs - SM 60 q 6 - to decrease to q12 04/15 - 04/17 decreased to 40 bid (COPD/home O2 4 LPM) ID : 1. LRTI- sputum with Stenotrophomonas maltophilia -, ususally MULTI-DRUG RESISTANT ORGANISM -started - BACTRIM 04/11 - >-to levofloxacin 04/16 due to hyperkalelmia, ( also + ksleb / enterob -was on rocephin) 2. Leukocytosis - adjusting avx 6/15 for Stenotrophomonas maltophilia- changed to levofloxacin 04/16 - follow - rising WBC despite tapering steroids - follow cxr , repeat UA and check ddimer ( ? thromboembolic, on proph lovenox , but was on coumadin [employer] [employer] ) H/O stroke and carotid stenosis - on warfarin - INR 1.3 - on charly 40 now - ? NEED TO RESUME FULL DOSE at some time ? - PER PCP syncopal episode and tipped over off of the stool - reported without injury - follow Hyperglycemia -ISS Lines : picc (Central Line Necessity Reviewed) Tian: + OG: + LIS Nutrition: ng PLACED 04/17 , tolerated TF Analgesia: Anxiety/ delirium VTE Prophylaxis: charly 40 Stress Ulcer Prophylaxis:ppi Plans in collaboration with bedside consultants and IM MDs. Discussed with RN to reach out if any questions or concerns A total of 32 minutes of critical care time was devoted to this patient today, required to treat and/or prevent further deterioration of critical care conditio n ( as above) . Sepsis Event Evaluation Height, Weight, BMI Height: 6'1.00" Weight: 235lbs. 0.4oz. 85.573762pl; 31.46 BMI Method:Stated Exam Exam Patient acknowledged, consented, and participated in this virtual visit which was conducted using real time audio/video Vital Signs Date Time Temp Pulse Resp B/P (MAP) Pulse Ox O2 Delivery O2 Flow Rate FiO2 04/18/22 11:35 35.7 04/18/22 10:57 98 Nasal Cannula 2.00 04/18/22 08:00 98 Nasal Cannula 2.00 04/18/22 07:46 35.7 04/18/22 07:43 71 150/91 04/18/22 07:25 100 Nasal Cannula 2.00 04/18/22 06:00 71 27 150/91 95 High Flow N/C 2.00 04/18/22 05:00 66 14 130/68 100 High Flow N/C 2.00 04/18/22 04:00 98 Nasal Cannula 2.00 04/18/22 04:00 68 13 130/69 99 High Flow N/C 2.00 04/18/22 03:00 68 155/71 96 High Flow N/C 2.00 04/18/22 02:30 97 Nasal Cannula 2.00 04/18/22 02:00 36.0 04/18/22 02:00 60 145/82 96 High Flow N/C 2.00 04/18/22 01:44 55 141/74 04/18/22 01:00 63 171/83 98 High Flow N/C 2.00 04/18/22 01:00 63 04/18/22 00:00 69 153/76 97 High Flow N/C 2.00 04/17/22 23:59 98 Nasal Cannula 2.00 04/17/22 23:00 57 147/57 96 High Flow N/C 2.00 04/17/22 22:17 97 Nasal Cannula 2.00 04/17/22 22:00 66 13 161/74 98 High Flow N/C 2.00 04/17/22 21:00 71 10 187/87 98 High Flow N/C 2.00 04/17/22 20:00 57 9 143/72 97 High Flow N/C 2.00 04/17/22 20:00 98 Nasal Cannula 2.00 04/17/22 19:50 36.0 04/17/22 19:28 36.0 55 14 179/98 99 High Flow N/C 2.00 04/17/22 19:00 55 04/17/22 18:53 96 Nasal Cannula 2.00 04/17/22 18:00 51 14 169/78 98 High Flow N/C 3.00 04/17/22 17:39 52 141/74 04/17/22 17:00 49 12 159/78 98 High Flow N/C 3.00 04/17/22 16:00 52 11 141/74 High Flow N/C 3.00 04/17/22 16:00 96 Nasal Cannula 3.00 04/17/22 16:00 36.1 04/17/22 15:00 53 134/68 97 High Flow N/C 3.00 04/17/22 14:11 97 Nasal Cannula 2.00 04/17/22 14:00 56 16 128/58 96 High Flow N/C 3.00 04/17/22 13:00 53 142/75 97 High Flow N/C 3.00 04/17/22 12:55 56 04/17/22 12:00 93 Nasal Cannula 3.00 04/17/22 12:00 54 143/61 97 High Flow N/C 3.00 04/17/22 11:45 53 130/64 97 High Flow N/C 3.00 04/17/22 11:38 36.4 I & O 04/18/22 07:00 Intake Total 495 ml Output Total 2300 ml Balance -1805 ml Height & Weight Height: 6'1.00" Weight: 235lbs. 0.4oz. 85.315556yy; 31.46 BMI Method:Stated General Appearance: No Apparent Distress, Obese HEENT: PERRL/EOMI; No Scleral Icterus (L), No Scleral Icterus (R); Other (ecam obscured by BiPAP mask) Neck: No JVD Respiratory: No Respiratory Distress, Decreased Breath Sounds, Rhonci, Wheezing Cardiovascular: Regular Rate, Rhythm, No Murmur Capillary Refill: Less Than 3 Seconds Gastrointestinal: normal bowel sounds, non tender, distended Extremity: Normal Inspection, Pedal Edema Neurologic/Psychiatric: Other (sedated) Skin: Normal Color, Warm/Dry Results Lab Laboratory Tests 04/16/22 18:30 04/17/22 03:15 04/17/22 06:53 04/17/22 15:30 04/17/22 20:20 04/18/22 05:25 04/18/22 05:55 Assessment/Plan Assessment/Plan ` ALFONSO MCCABE MD Apr 18, 2022 11:38
--- NOTE | 2022-04-18 11:51 | Occ Therapy Progress Note ---
Therapy Progress Note Per nurse, Sedation increased due to pt agitation. Pt unable to participate in skilled therapy due to lethargy and would increase agitation. Hold pt today, will continue to monitor pt status. ANNIE FRIEND Apr 18, 2022 11:51
[2022-04-18 11:52] LABS: CALCIUM 7.8 MG/DL (8.5-10.1); CREATININE SERUM 0.83 MG/DL (0.60-1.30); POTASSIUM 5.9 MMOL/L (3.6-5.0)
[2022-04-18] MEDS: NYSTATIN ORAL SUSP 5 ML UDC PO SCH ×2 (12:08→17:33)
[2022-04-18] MEDS: LACTATED RINGERS 1,000 ML IV SCH (12:12)
[2022-04-18 12:18] LABS: BILIRUBIN,URINE NEGATIVE (NEGATIVE); CLARITY,URINE CLEAR; COLOR,URINE YELLOW; GLUCOSE, URINE (UA) TRACE (NEGATIVE); KETONES,URINE NEGATIVE (NEGATIVE); LEUKOCYTE ESTERASE ,URINE NEGATIVE (NEGATIVE); NITRITE,URINE NEGATIVE (NEGATIVE); PROTEIN,URINE NEGATIVE (NEGATIVE)
[2022-04-18 12:30] LABS: BACTERIA,URINE NEGATIVE /HPF; URIC ACID CRYSTALS,URINE FEW /LPF
[2022-04-18] MEDS ORDERED: APAP 325 MG/10.15 ML LIQ (TYLENOL) UDC NG PRN (14:30)
[2022-04-18] MEDS ORDERED: SODIUM POLYSTYRENE POWDER 15 GM BOTTLE PR ONE (14:30)
--- NOTE | 2022-04-18 19:23 | Progress Note - Hospitalist ---
Subjective HPI/CC On Admission Date Seen by Provider: Apr 18, 2022 Time Seen by Provider: 09:15 Patient 76-year-old male with past medical history of COPD with baseline 4 L/min oxygen requirement, CVA, hyperlipidemia who presented to the emergency department due to abdominal pain. He had imaging that revealed multiple kidney stones and they were prepping for discharge as his pain was controlled but he became hypotensive. In review of labs he was found to have a leukocytosis of 18,000 and decision was made to admit for further management. I was called to bedside shortly after arrival to the ICU due to decline in r espiratory status. He is unable to provide me much history and is pulling at his BiPAP. His states that he has known COPD and wears 4 L of oxygen per minute. She states he would be agreeable with intubation if needed. He is unable to provide me any history due to his clinical condition. Subjective/Events-last exam He is sleeping. He awakens and is able to tell me his name. He mumbles. He is otherwise disoriented. I spoke with his and updated her on his condition. Objective Exam Vital Signs Vital Signs Date Time Temp Pulse Resp B/P (MAP) Pulse Ox O2 Delivery O2 Flow Rate FiO2 04/18/22 18:36 99 Nasal Cannula 2.00 04/18/22 18:02 60 12 107/63 04/18/22 11:35 35.7 04/15/22 04:00 25 Capillary Refill : Less Than 3 Seconds General Appearance: No Apparent Distress, Obese Respiratory: No Accessory Muscle Use, No Respiratory Distress, Decreased Breath Sounds Cardiovascular: Regular Rate, Rhythm, No Murmur Gastrointestinal: Normal Bowel Sounds, Soft Extremity: Normal Inspection, Pedal Edema Neurologic/Psychiatric: Alert, Disoriented Skin: Normal Color, Warm/Dry Results/Procedures Lab Laboratory Tests 04/17/22 20:20 04/18/22 05:25 04/18/22 05:55 04/18/22 11:19 Patient resulted labs reviewed. Imaging: Reviewed Imaging Report Assessment/Plan Assessment and Plan Assess & Plan/Chief Complaint Acute on chronic hypoxic respiratory failure COPD with acute exacerbation Pneumonia Hyperkalemia Continue steroids MAT Protocol Extubated 04/10 TeleICU following PT/OT Sputum culture with klebsiella and Stenotrophomonas maltophilia s/p Rocephin Transitioned to Levaquin due to hyperkalemia Pharmacy review for hyperkalemia inducing meds ICU psychosis Steroid induced psychosis Decreasing Solumedrol Decrease Ativan Risperdal Precedex, wean as able [place] referral Sepsis- severe POA Nephrolithiasis JUAN s/p Rocephin Urology following HTN BP improved h/o CVA Chronic anticoagulation No deficits Resume Warfarin CT Head negative for acute findings DVT ppx: Lovenox Critical Care Critically Ill Patient Diagnosis/Problems Diagnosis/Problems (1) Acute respiratory failure Status: Acute Qualifiers: Respiratory failure complication: hypoxia Qualified Codes: J96.01 - Acute respiratory failure with hypoxia (2) COPD with acute exacerbation Status: Acute (3) Infection with Stenotrophomonas maltophilia resistant to multiple drugs Status: Acute (4) Delirium Status: Acute (5) Hospital psychosis Status: Acute ROSIO MAGAÑA MD Apr 18, 2022 19:23
[2022-04-18] MEDS ORDERED: warFARin 5 MG (COUMADIN) TAB PO ONE (19:30)
[2022-04-18 20:11] LABS: POTASSIUM 5.9 MMOL/L (3.6-5.0)
[2022-04-18 20:13] LABS: CALCIUM 7.6 MG/DL (8.5-10.1)
[2022-04-18 20:17] LABS: CREATININE SERUM 0.79 MG/DL (0.60-1.30)
[2022-04-18] MEDS ORDERED: warFARin 5 MG (COUMADIN) TAB ONE (22:10)
[2022-04-19] MEDS: inSUlin ASPART (NovoLOG) 1 UNIT/0.01 ML (CHARGE PER UNIT) SC SCH ×4 (00:18→18:29)
[2022-04-19] MEDS: NYSTATIN ORAL SUSP 5 ML UDC PO SCH ×4 (00:18→18:29)
[2022-04-19] MEDS: RT-ALBUTEROL/IPRATROPIUM 3 ML (DUONEB) VIAL INH SCH ×6 (02:11→23:43)
[2022-04-19] MEDS: 1/2 NS IV SOLUTION 1,000 ML IV SCH ×2 (04:34→14:17)
[2022-04-19] MEDS: DexMEDEtomidine 250 ML DRIP 250 ML IV SCH ×3 (04:35→20:53)
[2022-04-19] MEDS: LORazepam INJ 2 MG/ML (ATIVAN) VIAL IVP PRN ×3 (04:35→18:28)
[2022-04-19 06:46] LABS: HEMOGLOBIN 10.3 g/dL (13.3-17.7); NEUTROPHILS # (AUTO) 12.9 10^3/uL (1.8-7.8)
[2022-04-19 06:48] LABS: BASOPHILS % (AUTO) 0 % (0-10); EOSINOPHILS % (AUTO) 0 % (0-10); HEMATOCRIT 32 % (40-54); LYMPHOCYTES % (AUTO) 6 % (12-44); MEAN CORPUSCULAR HEMOGLOBIN 31 pg (25-34); MEAN CORPUSCULAR HGB CONC 32 g/dL (32-36); MEAN CORPUSCULAR VOLUME 99 fL (80-99); MEAN PLATELET VOLUME 12.9 fL (9.0-12.2); MONOCYTES % (AUTO) 7 % (0-12); NEUTROPHILS % (AUTO) 84 % (42-75); PLATELET COUNT 113 10^3/uL (130-400); WHITE BLOOD COUNT 15.4 10^3/uL (4.3-11.0)
[2022-04-19 07:09] LABS: PROTHROMBIN TIME PATIENT 13.8 SEC (12.2-14.7)
[2022-04-19 07:14] LABS: ALBUMIN 2.8 GM/DL (3.2-4.5); BILIRUBIN,DIRECT 0.3 MG/DL (0.0-0.3); BILIRUBIN,INDIRECT 0.5 MG/DL; BILIRUBIN,TOTAL 0.8 MG/DL (0.1-1.0); CALCIUM 7.9 MG/DL (8.5-10.1); CREATININE SERUM 0.77 MG/DL (0.60-1.30); POTASSIUM 5.1 MMOL/L (3.6-5.0); TOTAL PROTEIN 4.9 GM/DL (6.4-8.2)
[2022-04-19] MEDS: POTASSIUM CL 10MEQ/50ML IVPB 50 ML IV SCH (07:21)
[2022-04-19] MEDS: KCL 20 MEQ TAB (K-DUR) PO SCH (07:22)
[2022-04-19 07:38] LABS: MAGNESIUM 2.1 MG/DL (1.6-2.4); PHOSPHORUS 2.8 MG/DL (2.3-4.7)
[2022-04-19] MEDS: MAGNESIUM 1 GM/100 ML IVPB 100 ML IV SCH (07:42)
[2022-04-19 07:52] LABS: BASOPHILS % (MANUAL) 0 %; EOSINOPHILS % (MANUAL) 0 %; LYMPHOCYTES % (MANUAL) 6 %; MONOCYTES % (MANUAL) 5 %; NEUTROPHILS % (MANUAL) 89 %
[2022-04-19 07:53] LABS: RBC MORPH NORMAL
--- NOTE | 2022-04-19 08:04 | Diagnostic Imaging Report ---
EXAMINATION: Chest 1 view HISTORY: Hypoxia COMPARISON: 04/17/2022 FINDINGS: Gastric tube tip is in the body of stomach. Right upper extremity peripherally inserted central venous catheter tip terminates in the superior vena cava. No edema or pneumonia. No pleural effusion or pneumothorax. Heart size is normal. IMPRESSION: 1. Clear lungs. Dictated by: Dictated on workstation # [id number]
--- NOTE | 2022-04-19 08:08 | Diagnostic Imaging Report ---
EXAMINATION: Abdomen 1 view HISTORY: Abdominal distention COMPARISON: None available. FINDINGS: Gastric tube tip is in the body of the stomach. No dilated bowel is seen. No free air. IMPRESSION: Normal bowel gas pattern Dictated by: Dictated on workstation # [id number]
[2022-04-19] MEDS: risperiDONE 0.25 MG (RisperDAL) TAB PO SCH ×2 (09:35→20:50)
[2022-04-19] MEDS: methylPREDNISolone 40 MG/ML (Solu-MEDROL) VIAL IV SCH (09:35)
[2022-04-19] MEDS: morphine INJ 4 MG/ML 1 ML (VIAL/SYRINGE) IV PRN ×3 (09:36→22:07)
[2022-04-19] MEDS: PANTOPRAZOLE 40 MG (PROTONIX) VIAL IV SCH (09:36)
[2022-04-19] MEDS: ENOXAPARIN 40 MG/0.4 ML (LOVENOX) SYR SQ SCH (09:36)
--- NOTE | 2022-04-19 10:37 | Physical Therapy Progress Note ---
Therapy Progress Note Patient continues to be on Hold due to current medical status. Will continue to monitor patient status. HERNANDEZ HARRISON PT Apr 19, 2022 10:37
--- NOTE | 2022-04-19 10:53 | Occ Therapy Progress Note ---
Therapy Progress Note Patient continues to be on Hold due to current medical status. Will continue to monitor patient status. ANNIE FRIEND Apr 19, 2022 10:53
[2022-04-19] MEDS: LEVOFLOXACIN 750 MG/D5W 150 ML PRE-MIX IV SCH (10:58)
[2022-04-19] MEDS: LABETALOL HCL 20 MG/4 ML VIAL IV PRN (11:34)
--- NOTE | 2022-04-19 12:53 | Diagnostic Imaging Report ---
CHEST 1 VIEW, AP/PA ONLY INDICATION: NG tube placement. COMPARISON: Earlier same day at 2:06 a.m. FINDINGS: Enteric tube has tip terminating approximately 4 cm below the GE junction. The side port is likely in the distal esophagus but not well visualized. Lungs remain clear. No pleural effusion or pneumothorax. Stable PICC. IMPRESSION: 1. NG tube has tip in the proximal stomach. Consider approximately 5 cm of advancement. Dictated by: Dictated on workstation # [id number]
--- NOTE | 2022-04-19 13:17 | Diagnostic Imaging Report ---
INDICATION: Catheter placement. FINDINGS: Catheter via the right has its distal tip projecting over the lower SVC in good position. An OG catheter has been placed its distal tip projects along the proximal gastric greater curvature. IMPRESSION: Catheters projecting in good alignment where visualized. No focal infiltrate, effusion or pneumothorax. Dictated by: Dictated on workstation # [id number]
--- NOTE | 2022-04-19 13:32 | Speech Therapy Daily Note ---
Speech Daily Progress Note Subjective Date Seen by Provider: Apr 19, 2022 Time Seen by Provider: 10:22 The patient was lying in bed, eye closed upon entrance to his room by the clinician. The patient was able to state his name when orientation information was asked by the clinician and remained with eyes opened throughout the treatment session. The patient consistently moaned and verbalized incomprehensible language while the clinician completed attempts to assess the oropharyngeal swallow function. Objective The clinician attempted for the patient to follow one-step commands prior to presenting P.O. bolus consistencies to the patient's lips. The patient was unable to follow any one-step commands regardless of consistent repetition and direct modeling. As the patient appeared to mildly increase his level of agitation with interactions, the clinician attempted to complete oral care. Oral care was provided with a moist, suctioned toothette and a dry toothette. The cleansing oral liquid was present with the packaging of the suctioned swab. White debris was removed from the anterior lingual surface, the teeth were brush, and the buccal cavities were swept. The clinician was unable to reach the posterior lingual surface due to the patient's inability to open the oral cavity. The patient's oral cavity was suctioned prior to completion. Additional material was not visualized on the lingual surface at completion of oral care. Following repetitive attempts, the patient remains unable to participate in safe P.O. oral trials. At this time, speech pathology will sign off. Please re- consult speech pathology when the patient is appropriate to participate. Assessment Assessment Current Status: Regressing Treatment Plan Discontinue ST Speech Short Term Goals Short Term Goals Short Term Goals 1. The patient, staff, and family will follow swallowing safety strategies with 90% accuracy and mild clinician verbal cueing. Time Frame-STG: Five Days. Speech Brass Sorter Goals Brass Sorter Goals 1. The patient will tolerate the least restrictive diet consistency without s/s of suspected aspiration. Speech-Plan Treatment Plan Speech Therapy Treatment Plan: Discontinue ST Treatment Duration: Apr 25, 2022 Frequency: 3 times per week (Three to five times per week.) Estimated Hrs Per Day: .25 hour per day Rehab Potential: Guarded Safety Risks/Education Teaching Recipient: Patient Teaching Methods: Demonstration, Discussion Response to Teaching: Unable to Comprehend Education Topics Provided: Oral Care Procedures Time Speech Therapy Time In: 10:22 Speech Therapy Time Out: 10:30 Total Billed Time: 8 Billed Treatment Time 1, DYST No TIMO,LISETTE ST Apr 19, 2022 13:32
--- NOTE | 2022-04-19 17:04 | Tele-ICU Progress Note ---
Subjective Date Seen by a Provider: Apr 19, 2022 Time Seen by a Provider: 17:04 Subjective/Events-last exam (Tele-ICU Physician , Progress Note ) Available chart/ vitals / labs / Images reviewed Video assessment done using teleICU camera, rest of exam as per RN Discussed with RN , EXAM PER RN Events overnight : hypertensive Afebrile FiO2 - 2L I/O = neg 1300 Drips: 1/2 100 Pressors: , hemodynamically stable Consultants: Hospital course: (04/08) 76m admitted for Renal stones and UTI and COPD exac. Failed Bipap and intubated 04/09 AC 14 480 30% +3 , PAP 21 04/10 -EXTUBATED , nocturnal BIPAP 04/12-on VT 40 L 40 % , BIPAP at night 04/14 - precedex 04/16- moaning , precedex 1.0 04/17 - precedex 1 , NG placed - TF started, started Resperidone 0.5 bid 04/18- Precedex 1.0 A/P Acute resp failure with AECOPD 04/10 -EXTUBATED - nocturnal BIPAP PRN - not used last 24 h - on 4 l NC now - CPM , decrease steroids dose 04/15 - to cont to taper down Delirium - decrease steroids , suggest seroquil , try to wean off precedex - with Ng in place - 04/17 Resperidone 0.5 bid hyperkalemia 04/16 /04/17 stable today - - presumed due to bactrim -stopped 04/16 -, CPK 400 JUAN ( with mild left hydronephrosis) - resolved Kidney stones - CT 04/08 - 2 mm stone in the left distal ureter with very mild left hydronephrosis. - empiric abx, urology AECOPD- -nebs - SM 60 q 6 - to decrease to q12 04/15 - 04/17 decreased to 40 bid (COPD/home O2 4 LPM) ID : 1. LRTI- sputum with Stenotrophomonas maltophilia -, ususally MULTI-DRUG RESISTANT ORGANISM -started - BACTRIM 04/11 - >-to levofloxacin 04/16 due to hyperkalelmia, ( also + ksleb / enterob -was on rocephin) 2. Leukocytosis - adjusting avx 04/11 for Stenotrophomonas maltophilia- changed to levofloxacin 04/16 - follow - rising WBC despite tapering steroids - stable cxr and UA and ddimer 04/18 H/O stroke and carotid stenosis - on warfarin - INR 1.3 - on charly 40 now - ? NEED TO RESUME FULL DOSE at some time ? - PER PCP syncopal episode and tipped over off of the stool - reported without injury - follow Hyperglycemia -ISS Lines : picc (Central Line Necessity Reviewed) Tian: + OG: + LIS Nutrition: ng PLACED 04/17 , tolerated TF Analgesia: Anxiety/ delirium VTE Prophylaxis: charly 40 Stress Ulcer Prophylaxis:ppi Plans in collaboration with bedside consultants and IM MDs. Discussed with RN to reach out if any questions or concerns A total of 32 minutes of critical care time was devoted to this patient today, required to treat and/or prevent further deterioration of critical care con dition ( as above) . Sepsis Event Evaluation Height, Weight, BMI Height: 6'1.00" Weight: 235lbs. 0.4oz. 85.221525xn; 31.46 BMI Method:Stated Exam Exam Patient acknowledged, consented, and participated in this virtual visit which was conducted using real time audio/video Vital Signs Date Time Temp Pulse Resp B/P (MAP) Pulse Ox O2 Delivery O2 Flow Rate FiO2 04/19/22 14:35 100 Nasal Cannula 2.00 04/19/22 13:28 35.8 04/19/22 13:00 60 04/19/22 12:11 63 116/71 04/19/22 12:00 98 Nasal Cannula 2.00 04/19/22 11:05 97 Nasal Cannula 2.00 04/19/22 11:00 78 18 174/80 98 High Flow N/C 2.00 04/19/22 10:09 71 26 127/58 96 High Flow N/C 2.00 04/19/22 09:00 89 12 141/66 97 High Flow N/C 2.00 04/19/22 08:11 35.8 04/19/22 08:00 98 Nasal Cannula 2.00 04/19/22 08:00 69 16 106/47 98 High Flow N/C 2.00 04/19/22 07:24 98 Nasal Cannula 2.00 04/19/22 07:00 69 04/19/22 07:00 58 16 113/67 98 High Flow N/C 2.00 04/19/22 06:00 80 15 123/70 97 High Flow N/C 2.00 04/19/22 05:00 62 18 98/51 95 High Flow N/C 2.00 04/19/22 04:35 78 157/80 04/19/22 04:00 98 Nasal Cannula 2.00 04/19/22 04:00 75 14 140/70 97 High Flow N/C 2.00 04/19/22 04:00 35.9 04/19/22 03:00 78 16 131/64 96 High Flow N/C 2.00 04/19/22 02:11 96 Nasal Cannula 2.00 04/19/22 02:00 71 16 129/63 98 High Flow N/C 2.00 04/19/22 01:00 56 23 139/74 98 High Flow N/C 2.00 04/19/22 01:00 60 04/19/22 00:00 36.2 04/19/22 00:00 66 15 130/68 100 High Flow N/C 2.00 04/18/22 23:59 98 Nasal Cannula 2.00 04/18/22 23:00 58 21 119/63 99 High Flow N/C 2.00 04/18/22 22:50 99 Nasal Cannula 2.00 04/18/22 22:12 67 140/59 04/18/22 22:00 64 20 147/71 100 High Flow N/C 2.00 04/18/22 21:00 53 18 125/64 99 High Flow N/C 2.00 04/18/22 20:00 98 Nasal Cannula 2.00 04/18/22 20:00 57 13 121/60 100 High Flow N/C 2.00 04/18/22 19:51 36.5 04/18/22 19:00 35.4 59 15 120/90 99 High Flow N/C 2.00 04/18/22 19:00 57 12 122/67 99 High Flow N/C 2.00 04/18/22 19:00 60 04/18/22 18:36 99 Nasal Cannula 2.00 04/18/22 18:02 60 12 107/63 99 High Flow N/C 2.00 I & O 04/19/22 07:00 Intake Total 825 ml Output Total 1600 ml Balance -775 ml Height & Weight Height: 6'1.00" Weight: 235lbs. 0.4oz. 85.989203qr; 31.46 BMI Method:Stated General Appearance: No Apparent Distress, Obese HEENT: PERRL/EOMI; No Scleral Icterus (L), No Scleral Icterus (R); Other (ecam obscured by BiPAP mask) Neck: No JVD Respiratory: No Accessory Muscle Use, No Respiratory Distress, Decreased Breath Sounds Cardiovascular: Regular Rate, Rhythm, No Murmur Capillary Refill: Less Than 3 Seconds Gastrointestinal: normal bowel sounds, non tender, distended Extremity: Normal Inspection, Pedal Edema Neurologic/Psychiatric: Alert, Disoriented Skin: Normal Color, Warm/Dry Results Lab Laboratory Tests 04/17/22 20:20 04/18/22 05:25 04/18/22 05:55 04/18/22 11:19 04/18/22 19:50 04/19/22 06:00 Assessment/Plan Assessment/Plan ` ALFONSO MCCABE MD Apr 19, 2022 17:04
[2022-04-19] MEDS: warFARin 5 MG (COUMADIN) TAB PO SCH (18:29)
--- NOTE | 2022-04-19 21:31 | Progress Note - Hospitalist ---
Subjective HPI/CC On Admission Date Seen by Provider: Apr 19, 2022 Time Seen by Provider: 09:20 Patient 76-year-old male with past medical history of COPD with baseline 4 L/min oxygen requirement, CVA, hyperlipidemia who presented to the emergency department due to abdominal pain. He had imaging that revealed multiple kidney stones and they were prepping for discharge as his pain was controlled but he became hypotensive. In review of labs he was found to have a leukocytosis of 18,000 and decision was made to admit for further management. I was called to bedside shortly after arrival to the ICU due to decline in r espiratory status. He is unable to provide me much history and is pulling at his BiPAP. His states that he has known COPD and wears 4 L of oxygen per minute. She states he would be agreeable with intubation if needed. He is unable to provide me any history due to his clinical condition. Subjective/Events-last exam He remains confused. He has pulled his NG tube out. Objective Exam Vital Signs Vital Signs Date Time Temp Pulse Resp B/P (MAP) Pulse Ox O2 Delivery O2 Flow Rate FiO2 04/19/22 20:53 101 127/53 04/19/22 20:04 100 Nasal Cannula 2.00 04/19/22 18:00 21 04/19/22 13:28 35.8 04/15/22 04:00 25 Capillary Refill : Less Than 3 Seconds General Appearance: No Apparent Distress, Obese Respiratory: Lungs Clear, No Respiratory Distress Cardiovascular: Regular Rate, Rhythm, No Murmur Gastrointestinal: Normal Bowel Sounds, Soft Extremity: Normal Inspection, Pedal Edema Neurologic/Psychiatric: Alert, Normal Mood/Affect Skin: Normal Color, Warm/Dry Results/Procedures Lab Laboratory Tests 04/19/22 06:00 Patient resulted labs reviewed. Imaging: Reviewed Imaging Report Assessment/Plan Assessment and Plan Assess & Plan/Chief Complaint Acute on chronic hypoxic respiratory failure COPD with acute exacerbation Pneumonia Hyperkalemia Continue steroids MAT Protocol Extubated 04/10 TeleICU following PT/OT Sputum culture with klebsiella and Stenotrophomonas maltophilia Continue Levaquin, switched from Bactrim due to hyperkalemia ICU psychosis Steroid induced psychosis Prolonged delirium Decreasing Solumedrol Decrease Ativan Risperdal Precedex, wean as able [place] referral Sepsis- severe POA Nephrolithiasis JUAN s/p Rocephin Urology following HTN BP improved h/o CVA Chronic anticoagulation No deficits Continue Warfarin CT Head negative 04/09 DVT ppx: Lovenox Critical Care Critically Ill Patient Diagnosis/Problems Diagnosis/Problems (1) Acute respiratory failure Status: Acute Qualifiers: Respiratory failure complication: hypoxia Qualified Codes: J96.01 - Acute respiratory failure with hypoxia (2) COPD with acute exacerbation Status: Acute (3) Infection with Stenotrophomonas maltophilia resistant to multiple drugs Status: Acute (4) Delirium Status: Acute (5) Hospital psychosis Status: Acute ROSIO MAGAÑA MD Apr 19, 2022 21:31
[2022-04-20] MEDS: inSUlin ASPART (NovoLOG) 1 UNIT/0.01 ML (CHARGE PER UNIT) SC SCH ×4 (00:54→18:08)
[2022-04-20] MEDS: 1/2 NS IV SOLUTION 1,000 ML IV SCH ×3 (00:54→16:26)
[2022-04-20] MEDS: NYSTATIN ORAL SUSP 5 ML UDC PO SCH ×4 (00:54→18:08)
[2022-04-20] MEDS: RT-ALBUTEROL/IPRATROPIUM 3 ML (DUONEB) VIAL INH SCH ×2 (03:24→07:00)
[2022-04-20 04:14] VITALS: BP 112/59
[2022-04-20] MEDS: DexMEDEtomidine 250 ML DRIP 250 ML IV SCH (04:14)
[2022-04-20 04:16] LABS: BASOPHILS % (AUTO) 0 % (0-10); EOSINOPHILS % (AUTO) 0 % (0-10); HEMATOCRIT 28 % (40-54); HEMOGLOBIN 9.1 g/dL (13.3-17.7); LYMPHOCYTES # (AUTO) 0.9 10^3/uL (1.0-4.0); LYMPHOCYTES % (AUTO) 8 % (12-44); MEAN CORPUSCULAR HEMOGLOBIN 32 pg (25-34); MEAN CORPUSCULAR HGB CONC 32 g/dL (32-36); MEAN CORPUSCULAR VOLUME 99 fL (80-99); MEAN PLATELET VOLUME 12.8 fL (9.0-12.2); MONOCYTES # (AUTO) 0.9 10^3/uL (0.0-1.0); MONOCYTES % (AUTO) 8 % (0-12); NEUTROPHILS # (AUTO) 9.3 10^3/uL (1.8-7.8); NEUTROPHILS % (AUTO) 82 % (42-75); PLATELET COUNT 91 10^3/uL (130-400); WHITE BLOOD COUNT 11.3 10^3/uL (4.3-11.0)
[2022-04-20 04:30] LABS: POTASSIUM 4.7 MMOL/L (3.6-5.0)
[2022-04-20 04:31] LABS: CALCIUM 7.7 MG/DL (8.5-10.1)
[2022-04-20 04:32] LABS: INR 1.4 (0.8-1.4); PROTHROMBIN TIME PATIENT 17.2 SEC (12.2-14.7)
[2022-04-20 04:36] LABS: CREATININE SERUM 0.81 MG/DL (0.60-1.30)
[2022-04-20] MEDS: morphine INJ 4 MG/ML 1 ML (VIAL/SYRINGE) IV PRN ×4 (04:53→16:53)
[2022-04-20] MEDS: POTASSIUM CL 10MEQ/50ML IVPB 50 ML IV SCH (04:59)
[2022-04-20] MEDS: KCL 20 MEQ TAB (K-DUR) PO SCH (05:00)
[2022-04-20] MEDS: MAGNESIUM 1 GM/100 ML IVPB 100 ML IV SCH (05:02)
--- NOTE | 2022-04-20 07:25 | Physical Therapy Progress Note ---
Therapy Progress Note Patient continues to be on Hold due to current medical status. Will continue to monitor patient status. HERNANDEZ HARRISON PT Apr 20, 2022 07:25
--- NOTE | 2022-04-20 08:25 | Occ Therapy Progress Note ---
Therapy Progress Note Patient continues to be on Hold due to current medical status. Will continue to monitor patient status. ANNIE FRIEND Apr 20, 2022 08:25
[2022-04-20] MEDS: methylPREDNISolone 40 MG/ML (Solu-MEDROL) VIAL IV SCH (08:35)
[2022-04-20] MEDS: LORazepam INJ 2 MG/ML (ATIVAN) VIAL IVP PRN (08:35)
[2022-04-20] MEDS: PANTOPRAZOLE 40 MG (PROTONIX) VIAL IV SCH (08:35)
[2022-04-20] MEDS: risperiDONE 0.25 MG (RisperDAL) TAB PO SCH (08:36)
[2022-04-20] MEDS: ENOXAPARIN 40 MG/0.4 ML (LOVENOX) SYR SQ SCH (08:36)
--- NOTE | 2022-04-20 11:15 | Tele-ICU Progress Note ---
Subjective Date Seen by a Provider: Apr 20, 2022 Time Seen by a Provider: 11:15 Subjective/Events-last exam (Tele-ICU Physician , Progress Note ) Available chart/ vitals / labs / Images reviewed Video assessment done using teleICU camera, rest of exam as per RN Discussed with RN , EXAM PER RN Events overnight : hypertensive Afebrile FiO2 - 2L I/O = neg 1300 Drips: 1/2 100 Pressors: , hemodynamically stable Consultants: Hospital course: (04/08) 76m admitted for Renal stones and UTI and COPD exac. Failed Bipap and intubated 04/09 AC 14 480 30% +3 , PAP 21 04/10 -EXTUBATED , nocturnal BIPAP 04/12-on VT 40 L 40 % , BIPAP at night 04/14 - precedex 04/16- moaning , precedex 1.0 04/17 - precedex 1 , NG placed - TF started, started Resperidone 0.5 bid 04/18- Precedex 1.0 04/20 - ADDED SEROQUIL A/P Acute resp failure with AECOPD 04/10 -EXTUBATED - nocturnal BIPAP PRN - not used last 24 h - on 4 l NC now - CPM , decrease steroids dose 04/15 - to cont to taper down Delirium - decrease steroids , suggest seroquil , try to wean off precedex - with Ng in place - 04/17 Resperidone 0.5 bid - 04/20 - ADDED SEROQUIL hyperkalemia 04/16 /04/17 stable today - - presumed due to bactrim -stopped 04/16 -, CPK 400 JUAN ( with mild left hydronephrosis) - resolved Kidney stones - CT 04/08 - 2 mm stone in the left distal ureter with very mild left hydronephrosis. - urology AECOPD- -nebs - SM 60 q 6 - to decrease to q12 04/15 - 04/17 decreased to 40 bid - to change to PO tomorrow ? (COPD/home O2 4 LPM) ID : 1. LRTI- sputum with Stenotrophomonas maltophilia -, ususally MULTI-DRUG RESISTANT ORGANISM -started - BACTRIM 04/11 - >-to levofloxacin 04/16 due to hyperkalelmia, ( also + ksleb / enterob -was on rocephin) 2. Leukocytosis - adjusting avx 04/11 for Stenotrophomonas maltophilia- changed to levofloxacin 04/16 - follow - rising WBC despite tapering steroids - stable cxr and UA and ddimer 04/18 H/O stroke and carotid stenosis - on warfarin - INR 1.3 - on charly 40 now - RESUMED coumadine - follow INR syncopal episode and tipped over off of the stool - reported without injury - follow Hyperglycemia -ISS Lines : picc (Central Line Necessity Reviewed) Tian: + OG: + LIS Nutrition: ng PLACED 04/17 , tolerated TF Analgesia: Anxiety/ delirium VTE Prophylaxis: charly 40 Stress Ulcer Prophylaxis:ppi Plans in collaboration with bedside consultants and IM MDs. Discussed with RN to reach out if any questions or concerns A total of 20 minutes of critical care time was devoted to this patient today, required to treat and/or prevent further deterioration of critical care condition ( as above) . Sepsis Event Evaluation Height, Weight, BMI Height: 6'1.00" Weight: 235lbs. 0.4oz. 85.483403xs; 31.46 BMI Method:Stated Exam Exam Patient acknowledged, consented, and participated in this virtual visit which was conducted using real time audio/video Vital Signs Date Time Temp Pulse Resp B/P (MAP) Pulse Ox O2 Delivery O2 Flow Rate FiO2 04/20/22 11:00 110 113/76 100 High Flow N/C 2.00 04/20/22 10:00 82 82/49 100 High Flow N/C 2.00 04/20/22 09:00 83 26 84/72 100 High Flow N/C 2.00 04/20/22 08:00 112 22 153/82 98 High Flow N/C 2.00 04/20/22 07:35 36.8 04/20/22 07:00 116 24 116/48 100 High Flow N/C 2.00 04/20/22 07:00 100 Nasal Cannula 3.00 04/20/22 07:00 87 04/20/22 06:00 73 23 96/41 100 High Flow N/C 2.00 04/20/22 05:00 81 23 157/72 100 High Flow N/C 2.00 04/20/22 04:14 75 112/59 04/20/22 04:00 97 Nasal Cannula 2.00 04/20/22 04:00 80 18 112/59 100 High Flow N/C 2.00 04/20/22 03:25 100 Nasal Cannula 2.00 04/20/22 03:00 82 18 120/50 95 High Flow N/C 2.00 04/20/22 02:00 99 18 165/93 95 High Flow N/C 2.00 04/20/22 01:00 80 04/20/22 01:00 80 27 121/59 100 High Flow N/C 2.00 04/20/22 00:00 105 27 145/55 92 High Flow N/C 2.00 04/19/22 23:59 97 Nasal Cannula 2.00 04/19/22 23:43 98 Nasal Cannula 2.00 04/19/22 23:00 89 24 165/72 100 High Flow N/C 2.00 04/19/22 22:00 124 22 148/75 93 High Flow N/C 2.00 04/19/22 21:00 144 18 99 High Flow N/C 2.00 04/19/22 20:53 101 127/53 04/19/22 20:04 100 Nasal Cannula 2.00 04/19/22 20:00 99 Nasal Cannula 2.00 04/19/22 20:00 94 16 127/53 100 High Flow N/C 2.00 04/19/22 19:25 80 04/19/22 19:00 121 19 108/55 99 High Flow N/C 2.00 04/19/22 18:00 80 21 153/55 99 High Flow N/C 2.00 04/19/22 17:00 85 19 158/78 100 High Flow N/C 2.00 04/19/22 16:00 98 Nasal Cannula 2.00 04/19/22 16:00 72 11 121/62 100 High Flow N/C 2.00 04/19/22 15:00 66 20 100/43 100 High Flow N/C 2.00 04/19/22 14:35 100 Nasal Cannula 2.00 04/19/22 14:00 75 31 148/92 100 High Flow N/C 2.00 04/19/22 13:28 35.8 04/19/22 13:00 60 04/19/22 13:00 61 13 112/62 97 High Flow N/C 2.00 04/19/22 12:11 63 116/71 04/19/22 12:00 98 Nasal Cannula 2.00 04/19/22 12:00 64 29 116/71 97 High Flow N/C 2.00 I & O 04/20/22 07:00 Intake Total 3986 ml Output Total 3275 ml Balance 711 ml Height & Weight Height: 6'1.00" Weight: 235lbs. 0.4oz. 85.259395fd; 31.46 BMI Method:Stated General Appearance: No Apparent Distress, Obese HEENT: PERRL/EOMI; No Scleral Icterus (L), No Scleral Icterus (R); Other (ecam obscured by BiPAP mask) Neck: No JVD Respiratory: Lungs Clear, No Respiratory Distress Cardiovascular: Regular Rate, Rhythm, No Murmur Capillary Refill: Less Than 3 Seconds Gastrointestinal: normal bowel sounds, non tender, distended Extremity: Normal Inspection, Pedal Edema Neurologic/Psychiatric: Alert, Normal Mood/Affect Skin: Normal Color, Warm/Dry Results Lab Laboratory Tests 04/18/22 11:19 04/18/22 19:50 04/19/22 06:00 04/20/22 04:00 Assessment/Plan Assessment/Plan 1 ALFONSO MCCABE MD Apr 20, 2022 11:15
[2022-04-20] MEDS: LEVOFLOXACIN 750 MG/D5W 150 ML PRE-MIX IV SCH (11:17)
[2022-04-20] MEDS ORDERED: LORazepam INJ 2 MG/ML (ATIVAN) VIAL IVP PRN (14:00)
[2022-04-20] MEDS ORDERED: RT-ALBUTEROL/IPRATROPIUM 3 ML (DUONEB) VIAL INH SCH (15:00)
--- NOTE | 2022-04-20 15:12 | Diagnostic Imaging Report ---
EXAMINATION: Chest 1 view HISTORY: NG tube placement COMPARISON: 04/19/2022. FINDINGS: Heart size and pulmonary vasculature are normal. The lungs are clear without consolidation, pleural effusion, or pneumothorax. The osseous structures are intact. An enteric catheter is present coursing below the diaphragm. The tip projects just below the gastroesophageal junction in the expected location of the proximal stomach in the left upper quadrant. IMPRESSION: 1. Enteric catheter placement with the tip located within the left upper quadrant just below the diaphragm in the expected location of the proximal stomach. Dictated by: Dictated on workstation # [id number]
[2022-04-20] MEDS: warFARin 5 MG (COUMADIN) TAB PO SCH (18:08)
[2022-04-20] MEDS ORDERED: QUEtiapine 25 MG (SEROquel) TAB IMMEDIATE RELEASE PO SCH (21:00)
== END 2022-04-20 19:00 | disposition short-term general hospital (02) | DRG 871 ==
LOC: EDUNIT# 05:19 → ER 05:24 → ICU 07:40 → OBSVTOIN 11:47 → ICU 04-13 08:11
PROVIDERS: ADMIT Family Medicine; ATTEND Internal Medicine
PROC: 5A1945Z Respiratory Ventilation, 24-96 Consecutive Hours (ICD-10-PCS; principal; 2022-04-08)
PROC: 0BH17EZ Insertion of Endotracheal Airway into Trachea, Via Natural or Artificial Opening (ICD-10-PCS; 2022-04-08)
PROC: 5A0945A Assistance with Respiratory Ventilation, 24-96 Consecutive Hours, High Flow/Velocity Cannula (ICD-10-PCS; 2022-04-10)
PROC: 5A09457 Assistance with Respiratory Ventilation, 24-96 Consecutive Hours, Continuous Positive Airway Pressure (ICD-10-PCS; 2022-04-10)
DX: A41.9 Sepsis, unspecified organism (principal); J96.21 Acute and chronic respiratory failure with hypoxia; J18.9 Pneumonia, unspecified organism; J44.1 Chronic obstructive pulmonary disease with (acute) exacerbation; N17.9 Acute kidney failure, unspecified; N39.0 Urinary tract infection, site not specified; N20.1 Calculus of ureter; J44.0 Chronic obstructive pulmonary disease with (acute) lower respiratory infection; N20.0 Calculus of kidney; I10 Essential (primary) hypertension; Z86.73 Personal history of transient ischemic attack (TIA), and cerebral infarction without residual deficits; Z79.01 Long term (current) use of anticoagulants; Z87.891 Personal history of nicotine dependence; E78.00 Pure hypercholesterolemia, unspecified; N40.0 Benign prostatic hyperplasia without lower urinary tract symptoms; M19.90 Unspecified osteoarthritis, unspecified site; F41.9 Anxiety disorder, unspecified; R65.20 Severe sepsis without septic shock; R22.42 Localized swelling, mass and lump, left lower limb; R73.9 Hyperglycemia, unspecified; I65.29 Occlusion and stenosis of unspecified carotid artery; E87.5 Hyperkalemia; F15.959 Other stimulant use, unspecified with stimulant-induced psychotic disorder, unspecified; R41.0 Disorientation, unspecified; Z20.822 Contact with and (suspected) exposure to COVID-19; R31.9 Hematuria, unspecified
CPT/HCPCS: 36415; 36569; 70450; 71045; 74018; 74176; 76937; 80048; 80053; 80076; 81000; 82040; 82550; 82805; 82947; 83605; 83690; 83735; 84100; 84145; 84478; 84484; 85007; 85025; 85027; 85379; 85610; 85730; 86141; 87040; 87070; 87077; 87081; 87088; 87186; 87205; 87636; 93005; 93041; 94002; 94003; 94640; 94660; 94760; 94799; 96374; 96375